=== PATIENT | female | born 1960 | race African-American/Black ===

== ENCOUNTER 2016-08-10 19:09 | Observation (INO) | payer OTHER ==
[~2016-08-10] VITALS: Ht 160 cm; Wt 115.0 kg
[~2016-08-10 19:09] MED LIST: CYCL1TAB29 PO; DIAZ10 PO; GLIP10TA6 PO; LANTUS2P SQ; LEVO25TA4 PO
[2016-08-10 19:10] VITALS: BP 203/88; PULSE 87; RESP 18; TEMP 98.5; O2SAT 98
[2016-08-10 19:27] VITALS: BP 185/87; PULSE 84; RESP 18; TEMP 98.2; O2SAT 100
[2016-08-10] MEDS ORDERED: ASPIRIN 325 MG TAB PO ONE (19:45)
[2016-08-10] MEDS ORDERED: MORPHINE SULFATE 4 MG/ML INJ IV PUSH ONE (19:45)
[2016-08-10] MEDS ORDERED: SODIUM CHLORIDE 0.9% FLUSH 5 ML FLUSH IVF PRN (19:45)
--- NOTE | 2016-08-10 19:49 | PD ---
HPI Chief Complaint: Chest Pain Time Seen by Provider: 19:32 Travel History International Travel<30 days: No Contact w/Intl Traveler<30days: No Traveled to known affect area: No History of Present Illness HPI The patient is a 56-year-old female. 2 months ago she moved here from [place]. She arrives tonight complaining of chest pain which started while she was shopping. It's retrosternal and has a sharp quality. She states it was severe however has improved. She also felt lightheaded at the time without LOC. She states thereafter she started to drop objects from her hands. Hand weakness has since resolved. The patient suffers chronic back pain. At one point she was opiate-dependent for the pain. She denies any history of coronary artery disease/cardiac catheterization. She is diabetic and hypertensive. For the past couple days she has been feeling somewhat lousy laying in bed generally and suffering with total body pain specifically in her cervical thoracic and lumbar spine and knees. She denies any recent injuries. She's had no fever or cough. There was no diaphoresis palpitation or shortness of breath accompanying her symptoms earlier this evening. In the ER her pain is mild to moderate. Currently she has no primary provider secondary to insurance problems. She has no headache and had no headache earlier. PFSH Past Medical History Diabetes: Yes Patient Takes Glucophage: No (unknown) Hepatitis: Yes (HEP C) Musculoskeletal: Yes (BULDGING DISC) Immunizations Current: Yes Tetanus Vaccination: Unknown Influenza Vaccination: No Past Surgical History Cardiac Surgery: Yes Social History Alcohol Use: No Tobacco Use: No Substance Use: No Allergies-Medications (Allergen,Severity, Reaction): Coded Allergies: Latex (Verified Allergy, Severe, rash and swelling, 08/10/16) Metformin (Verified Allergy, Severe, 08/10/16) Motrin (Verified Allergy, Severe, 08/10/16) Reported Meds & Prescriptions Reported Meds & Active Scripts Active Review of Systems Except as stated in HPI: all other systems reviewed are Neg General / Constitutional: No: Fever, Chills Neurologic: Positive: Weakness, No: Dizziness, Syncope, Headache Physical Exam Narrative GENERAL: Pleasant 56-year-old female BMI 45, mildly anxious SKIN: Warm and dry. HEAD: Atraumatic. Normocephalic. EYES: Pupils equal and round. No scleral icterus. No injection or drainage. ENT: No nasal bleeding or discharge. Mucous membranes pink and moist. NECK: Trachea midline. No JVD. No focal spinal tenderness. Range of motion normal. CARDIOVASCULAR: Regular rate and rhythm. No murmur appreciated. RESPIRATORY: No accessory muscle use. Clear to auscultation. Breath sounds equal bilaterally. GASTROINTESTINAL: Abdomen soft, non-tender, nondistended. Hepatic and splenic margins not palpable. MUSCULOSKELETAL: No obvious deformities. No clubbing. No cyanosis. No edema. NEUROLOGICAL: Awake and alert. No obvious cranial nerve deficits. Motor grossly within normal limits. Normal speech. 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 Full range of motion at the shoulders elbows and wrists is noted and appears normal and symmetric. PSYCHIATRIC: Appropriate mood and affect; insight and judgment normal. Data Data Last Documented VS Vital Signs Date Time Temp Pulse Resp B/P Pulse Ox O2 Delivery O2 Flow Rate FiO2 08/11/16 00:30 79 16 152/78 98 Room Air 08/10/16 19:27 98.2 Orders Electrocardiogram (08/10/16 19:40) Complete Blood Count With Diff (08/10/16 19:40) Magnesium (Mg) (08/10/16 19:40) Prothrombin Time / Inr (Pt) (08/10/16 19:40) Act Partial Throm Time (Ptt) (08/10/16 19:40) Troponin I (08/10/16 19:40) Lipase (08/10/16 19:40) Chest, Single Ap (08/10/16 19:40) Ecg Monitoring (08/10/16 19:40) Iv Access Insert/Monitor (08/10/16 19:40) Oximetry (08/10/16 19:40) Oxygen Administration (08/10/16 19:40) Aspirin (Aspirin) (08/10/16 19:45) Morphine Inj (Morphine Inj) (08/10/16 19:45) Nitroglycerin Sl (Nitrostat Sl) (08/10/16 19:45) Ct Brain W/O Iv Contrast(Rout) (08/10/16 19:40) Ct Cerv Spine W/O Contrast (08/10/16 19:40) Comprehensive Metabolic Panel (08/10/16 20:14) Us Abdomen Gallbladder (08/10/16 ) Piperacil-Tazo 4.5 Gm Premix (Zosyn 4.5 (08/11/16 00:30) Morphine Inj (Morphine Inj) (08/11/16 00:30) Admit Order (Ed Use Only) (08/11/16 00:41) Bedside Glucose KALEB.AC&HS (08/11/16 00:29) ^ Blood Glucose Goal (Criteria (08/11/16 00:29) ^ Hypoglycemia 51 - 69 Mg/Dl (08/11/16 00:29) ^ Hypoglycemia 50 Mg/Dl Or < (08/11/16 00:29) ^ Notify Dr: Other (08/11/16 00:29) Dextrose 50% In Katarina (Vial) Inj (D50w (Vi (08/11/16 00:30) Glucagon Inj (Glucagon Inj) (08/11/16 00:30) Insulin Aspart Supplemtl Scale (Novolog (08/11/16 07:00) Place In Observation (08/11/16 ) Vital Signs (Adult) Q4H (08/11/16 00:29) Activity Oob Ad Roxanne (08/11/16 00:29) ^ Manager Retail / Telemetry .CONTINUOUS (08/11/16 00:29) Diet 1800 Ada Cons Carb (08/11/16 Breakfast) Sodium Chloride 0.9% Flush (Ns Flush) (08/11/16 00:30) Sodium Chloride 0.9% Flush (Ns Flush) (08/11/16 09:00) Ondansetron Inj (Zofran Inj) (08/11/16 00:30) Bisacodyl Supp (Dulcolax Supp) (08/11/16 00:30) Comprehensive Metabolic Panel (08/11/16 06:00) Complete Blood Count With Diff (08/11/16 06:00) Troponin I (08/11/16 06:00) Troponin I (08/11/16 12:00) Scd Bilateral/Knee High KALEB.BID (08/11/16 00:29) Juan Bilateral/Knee High KALEB.QSHIFT (08/11/16 00:29) Acetaminophen (Tylenol) (08/11/16 00:30) Acetamin-Hydrocod 325-5 Mg ([place] 5-325 (08/11/16 00:30) Morphine Inj (Morphine Inj) (08/11/16 00:30) Thyroid Stimulating Hormone (08/11/16 06:00) Lipid Profile (08/11/16 06:00) Hemoglobin (Hgb) A1c (08/11/16 06:00) Labs Laboratory Tests Test 08/10/16 19:55 White Blood Count 5.4 TH/MM3 Red Blood Count 4.41 MIL/MM3 Hemoglobin 13.2 GM/DL Hematocrit 39.1 % Mean Corpuscular Volume 88.6 FL Mean Corpuscular Hemoglobin 30.0 PG Mean Corpuscular Hemoglobin 33.8 % Concent Red Cell Distribution Width 15.5 % Platelet Count 120 TH/MM3 Mean Platelet Volume 10.5 FL Neutrophils (%) (Auto) 46.8 % Lymphocytes (%) (Auto) 38.8 % Monocytes (%) (Auto) 11.0 % Eosinophils (%) (Auto) 2.8 % Basophils (%) (Auto) 0.6 % Neutrophils # (Auto) 2.5 TH/MM3 Lymphocytes # (Auto) 2.1 TH/MM3 Monocytes # (Auto) 0.6 TH/MM3 Eosinophils # (Auto) 0.2 TH/MM3 Basophils # (Auto) 0.0 TH/MM3 CBC Comment DIFF FINAL Differential Comment Prothrombin Time 13.0 SEC Prothromb Time International 1.2 RATIO Ratio Activated Partial 28.1 SEC Thromboplast Time Sodium Level 138 MEQ/L Potassium Level 4.0 MEQ/L Chloride Level 104 MEQ/L Carbon Dioxide Level 26.9 MEQ/L Anion Gap 7 MEQ/L Blood Urea Nitrogen 9 MG/DL Creatinine 0.65 MG/DL Estimat Glomerular Filtration 113 ML/MIN Rate Random Glucose 119 MG/DL Calcium Level 8.4 MG/DL Magnesium Level 1.9 MG/DL Total Bilirubin 2.6 MG/DL Aspartate Amino Transf 104 U/L (AST/SGOT) Alanine Aminotransferase 78 U/L (ALT/SGPT) Alkaline Phosphatase 271 U/L Troponin I LESS THAN 0.02 NG/ML Total Protein 8.8 GM/DL Albumin 2.8 GM/DL Lipase 253 U/L MDM Medical Decision Making Medical Screen Exam Complete: Yes Emergency Medical Condition: Yes Medical Record Reviewed: Yes Differential Diagnosis NSTEMI, unstable angina, coronary vasospasm, PE, PTX, aortic dissection, pericarditis, myocarditis, endocarditis, PNA, esophageal disease, aneurysm, musculoskeletal etiologies, anxiety, cocaine/sympathomimetic abuse Narrative Course The EKG reveals a sinus rhythm with a rate of 87; no ST segment elevation is observed; no acute ischemic injury pattern is observed. CBC & BMP Diagram 08/10/16 19:55 T bili 2.6 AST 104 ALT 78 Alk phos 271 Lipase 253 Tn < 0.02 Mg 1.9 Last [address] 08/10/161939 Signed Impressions: Service Date/Time: Wednesday, August 10, 2016 19:59 - CONCLUSION: Negative noncontrast head CT. Gil You MD Chest X-Ray 08/10/161939 Signed Impressions: Service Date/Time: Wednesday, August 10, 2016 20:10 - CONCLUSION: Trace pulmonary edema. Gil You MD Cervical Spine CT 08/10/161939 Signed Impressions: Service Date/Time: Wednesday, August 10, 2016 19:59 - CONCLUSION: 1. Multilevel degenerative changes as above. Mild bilateral foraminal stenosis at C4/C5 and C5/C6. There is mild right and moderate left foraminal stenosis at C6/C7. No significant spinal stenosis demonstrated. 2. No fracture or subluxation. Gil You MD Gall Bladder Ultrasound 08/10/16 0000 Signed Impressions: Service Date/Time: Wednesday, August 10, 2016 22:08 - CONCLUSION: Cirrhotic appearing liver with flow in the portal vein away from the liver. There is significant fluid in or around the gallbladder with gallbladder wall thickening. There some debris possibly within the common bile duct. Vinh Bray MD Zosyn started. Admission for IVF, pain control, antiemetics, serial enzymes and surgical evaluation considered reasonable d/w Dr Maravilla. Diagnosis Primary Impression: Cholecystitis Additional Impressions: Chest pain Qualified Code: R07.9 - Chest pain, unspecified type Chronic back pain Qualified Code: M54.9 - Chronic back pain, unspecified back location, unspecified back pain laterality Chronic leg pain Qualified Code: M79.606 - Chronic pain of lower extremity, unspecified laterality Admitting Information Admitting Physician Requests: Admit Marshall López MD Aug 10, 2016 19:49
[2016-08-10] MEDS: NITROGLYCERIN 0.4 MG SL 25 TABS/BTL SL SCH ×3 (19:50→20:20)
[2016-08-10 19:54] VITALS: RESP 18
[2016-08-10 20:10] LABS: AUTOMATED NEUTROPHIL # 2.5 TH/MM3 (1.8-7.7); BASOPHIL % 0.6 % (0.0-2.0); EOSINOPHIL # 0.2 TH/MM3 (0-0.4); EOSINOPHIL % 2.8 % (0.0-4.0); HEMATOCRIT 39.1 % (35.0-46.0); HEMO FLAGS DIFF FINAL; LYMPH % 38.8 % (9.0-44.0); LYMPHOCYTE # 2.1 TH/MM3 (1.0-4.8); MEAN CELL VOLUME 88.6 FL (80.0-100.0); MEAN CORPUSCULAR HGB CONC 33.8 % (32.0-36.0); NEUT % 46.8 % (16.0-70.0); PLATELET COUNT 120 TH/MM3 (150-450); RED BLOOD COUNT 4.41 MIL/MM3 (4.00-5.30); RED CELL DISTRIBUTION WIDTH 15.5 % (11.6-17.2); WHITE BLOOD COUNT 5.4 TH/MM3 (4.0-11.0)
[2016-08-10 20:20] VITALS: BP 171/82; PULSE 95; RESP 18; O2SAT 99
[2016-08-10 20:24] LABS: APTT (PATIENT) 28.1 SEC (24.3-30.1); INTERNATIONAL NORMALIZED RATIO 1.2 RATIO
--- NOTE | 2016-08-10 20:26 | RADRPT ---
EXAM DATE/TIME: 08/10/2016 19:59 [facility] COMPARISON: No previous studies available for comparison. INDICATIONS : General weakness. Numbness down both arms. No known trauma. RADIATION DOSE: 30.02 CTDIvol (mGy) MEDICAL HISTORY : Hepatitis C. Diabetes mellitus type 2. SURGICAL HISTORY : None. ENCOUNTER: Initial ACUITY: 1 day PAIN SCALE: 1/10 LOCATION: Bilateral neck TECHNIQUE: Volumetric scanning of the cervical spine was performed. Multiplanar reconstructions in the sagittal, coronal and oblique axial planes were performed. Using automated exposure control and adjustment o f the mA and/or kV according to patient size, radiation dose was kept as low as reasonably achievable to obtain optimal diagnostic quality images. FINDINGS: Mild cervical kyphosis noted. No subluxations. Bones appear osteopenic without perceptible fracture. Vertebral bodies have normal height. C1/C2 appears normal. C2-C3: The bony spinal canal is normal in size. No evidence of disc bulge or herniation. The neural forami na are bilaterally patent. C3-C4: Mild disc space narrowing and a small amount broad posterior protrusion. No foraminal or spinal steno sis demonstrated. C4-C5: The disc has moderate loss of height with anterior osseous ridging, chronic endplate sclerosis and a small, broad posterior disc osteophyte complex with mild uncovertebral and facet osteoarthritis. Ther e is mild bilateral foraminal stenosis. No significant spinal stenosis. C5-C6: The disc has moderate loss of height with anterior osseous ridging, chronic endplate sclerosis and a small, broad posterior disc osteophyte complex with mild uncovertebral and facet osteoarthritis. Ther e is mild bilateral foraminal stenosis. No significant spinal stenosis. C6-C7: The disc has moderate loss of height. There is a small to moderate, broad disc osteophyte complex and mild bilateral uncovertebral and facet osteoarthritis. There is mild right and moderate left foramin al stenosis. No significant spinal stenosis seen. C7-T1: The bony spinal canal is normal in size. No evidence of disc bulge or herniation. The neural forami na are bilaterally patent. CONCLUSION: 1. Multilevel degenerative changes as above. Mild bilateral foraminal stenosis at C4/C5 and C5/C6. Th ere is mild right and moderate left foraminal stenosis at C6/C7. No significant spinal stenosis demon strated. 2. No fracture or subluxation. Gil You MD on August 10, 2016 at 20:17 Board Certified Radiologist. This report was verified electronically.
--- NOTE | 2016-08-10 20:26 | RADRPT ---
EXAM DATE/TIME: 08/10/2016 19:59 [facility] COMPARISON: No previous studies available for comparison. INDICATIONS : General weakness and numbness in arms. No known trauma. RADIATION DOSE: 32.14 CTDIvol (mGy) MEDICAL HISTORY : Hepatitis C. Diabets. SURGICAL HISTORY : None. ENCOUNTER: Initial ACUITY: 1 day PAIN SCALE: 0/10 LOCATION: cranial TECHNIQUE: Multiple contiguous axial images were obtained of the head. Using automated exposure control and adj ustment of the mA and/or kV according to patient size, radiation dose was kept as low as reasonably a chievable to obtain optimal diagnostic quality images. FINDINGS: CEREBRUM: The ventricles are normal for age. No evidence of midline shift, mass lesion, hemorrhage or acute in farction. No extra-axial fluid collections are seen. POSTERIOR FOSSA: The cerebellum and brainstem are intact. The 4th ventricle is midline. The cerebellopontine angle i s unremarkable. EXTRACRANIAL: The visualized portion of the orbits is intact. SKULL: The calvaria is intact. No evidence of skull fracture. CONCLUSION: Negative noncontrast head CT. Gil You MD on August 10, 2016 at 20:25 Board Certified Radiologist. This report was verified electronically.
[2016-08-10 20:37] VITALS: BP 152/71; PULSE 88; RESP 16; O2SAT 100
[2016-08-10 20:56] LABS: MAGNESIUM 1.9 MG/DL (1.5-2.5)
[2016-08-10 21:14] LABS: ANION GAP 7 MEQ/L (5-15); AST (GOT) 104 U/L (15-37); BICARBONATE 26.9 MEQ/L (21.0-32.0); BLOOD UREA NITROGEN 9 MG/DL (7-18); CHLORIDE 104 MEQ/L (98-107); GLOMERULAR FILTRATION RATE 113 ML/MIN (>89); SODIUM (NA) 138 MEQ/L (136-145)
--- NOTE | 2016-08-10 21:15 | RADRPT ---
EXAM DATE/TIME: 08/10/2016 20:10 [facility] COMPARISON: No previous studies available for comparison. INDICATIONS : Weakness, numbness in arms, chest pain starting today MEDICAL HISTORY : Diabetes mellitus type II. SURGICAL HISTORY : None. ENCOUNTER: Initial ACUITY: 1 day PAIN SCORE: 10/10 LOCATION: Bilateral chest FINDINGS: Slightly prominent pulmonary interstitium seen suggesting very mild pulmonary edema. Heart size withi n normal limits. No large effusion demonstrated. No pneumothorax. CONCLUSION: Trace pulmonary edema. Gil oYu MD on August 10, 2016 at 21:13 Board Certified Radiologist. This report was verified electronically.
[2016-08-10 21:17] LABS: ALKALINE PHOSPHATASE 271 U/L (45-117); ALT (GPT) 78 U/L (10-53); TOTAL BILIRUBIN ADULT 2.6 MG/DL (0.2-1.0)
--- NOTE | 2016-08-10 23:22 | RADRPT ---
EXAM DATE/TIME: 08/10/2016 22:08 [facility] COMPARISON: No previous studies available for comparison. INDICATIONS : Right upper quadrant pain. MEDICAL HISTORY : Hepatitis C. Buldging disc. Diabetes. SURGICAL HISTORY : Colonoscopy. ENCOUNTER: Initial ACUITY: 1 day PAIN SCORE: 6/10 LOCATION: Right upper quadrant MEASUREMENTS: LIVER: 17.2 cm length COMMON DUCT: 6 mm RIGHT KIDNEY: 10.2 x 5.0 x 4.5 cm FINDINGS: LIVER: Heterogeneous nodular echotexture without focal lesion or ductal dilatation. The flow the portal vein is away from the liver. COMMON DUCT: No intraluminal mass or stone visualized. GALLBLADDER: The gallbladder wall is thickened. There some pericholecystic fluid and some debris in the gallbladde r fossa. PANCREAS: The visualized portions are within normal limits. RIGHT KIDNEY: No evidence of hydronephrosis, stone, or mass. CONCLUSION: Cirrhotic appearing liver with flow in the portal vein away from the liver. There is significant flui d in or around the gallbladder with gallbladder wall thickening. There some debris possibly within th e common bile duct. Vinh Bray MD on August 10, 2016 at 23:18 Board Certified Radiologist. This report was verified electronically.
[2016-08-11] VITALS (10 sets, daily range): BP systolic 132–163; BP diastolic 62–80; PULSE 69–99; RESP 16–24; TEMP 96.5–98.5; O2SAT 93–100
[2016-08-11] MEDS ORDERED: ACETAMINOPHEN 325 MG TAB PO PRN (00:30)
[2016-08-11] MEDS ORDERED: ONDANSETRON HCL 4 MG/2 ML VIAL IVP PRN (00:30)
[2016-08-11] MEDS ORDERED: MORPHINE SULFATE 8 MG/ML INJ IV PUSH ONE (00:30)
[2016-08-11] MEDS ORDERED: SODIUM CHLORIDE 0.9% FLUSH 5 ML FLUSH FLUSH PRN (00:30)
[2016-08-11] MEDS ORDERED: BISACODYL 10 MG SUPP PR PRN (00:30)
[2016-08-11] MEDS ORDERED: ACETAMINOPHEN/HYDROcodone 325 MG/5 MG TAB PO PRN (00:30)
[2016-08-11] MEDS ORDERED: GLUCAGON 1 MG/ML VIAL OTHER PRN (00:30)
[2016-08-11] MEDS ORDERED: PIPERACIL-TAZO 4.5 GM PREMIX 100 ML IV ONE (00:30)
[2016-08-11] MEDS ORDERED: DEXTROSE 50% IN WATER 50 ML VIAL(D50) IV PUSH PRN (00:30)
[2016-08-11] MEDS ORDERED: NITROGLYCERIN 2% OINT 1 GM PACKET TOPICAL PRN (00:45)
--- NOTE | 2016-08-11 01:04 | HHI.HP ---
[facility] Primary Care Physician No Primary Care Physician Admission Diagnosis Chest Pain, Poss Cholecystitis Diagnoses: (1) Chest pain Diagnosis: Principal (2) Cholecystitis Diagnosis: Principal (3) Hepatitis C (4) DM (diabetes mellitus) Diagnosis: Principal (5) Chronic back pain Diagnosis: Principal Travel History International Travel<30 Days: No Contact w/Intl Traveler <30 Da: No Traveled to Known Affected Are: No History of Present Illness This is a 56-year-old female with a PMH of HTN, DM, Hepatitis C, H/o GI Bleed w / Esophageal Varices s/p Banding and Chronic Back Pain who came to the ER w/ complaints of chest pain starting earlier today. Reports associated lightheadedness but no SOB. No h/o CAD. Denies fever, chills or sick contacts. No nausea, vomiting or abdominal pain. On arrival, BP 185/87, HR 84 , O2 sat 100% on RA, Afebrile. LFTs elevated, AST 104, ALT 78, ALP 271, Total Bili 2.6. No previous labs for comparison. Troponin negative. EKG with no acute changes. CBC unremarkable except for thrombocytopenia with platelets of 120. INR 1.2. Also reported transient episode of bilateral upper extremity weakness, now resolved. CT Head negative. CT C-Spine w/ multilevel degenerative disease and mild to moderate foraminal stenosis, no acute findings. CXR w/ mild pulmonary edema. Gallbladder US w/ cirrhosis and significant fluid around the gallbladder w/ gallbladder wall thickening and some debris in the CBD. Review of Systems Other ROS: 14 point review of systems otherwise negative. Past Family Social History Past Medical History PMH: HTN, DM, Hepatitis C, H/o GI Bleed w/ Esophageal Varices s/p Banding and Chronic Back Pain Past Surgical History PAST SURGICAL HISTORY: None Allergies: Coded Allergies: Latex (Verified Allergy, Severe, rash and swelling, 08/10/16) Metformin (Verified Allergy, Severe, 08/10/16) Motrin (Verified Allergy, Severe, 08/10/16) Family History PAST FAMILY HISTORY: Reviewed. No h/o DM or CAD Social History PAST SOCIAL HISTORY: Negative for alcohol, tobacco or drugs. Physical Exam Vital Signs Vital Signs Date Time Temp Pulse Resp B/P Pulse Ox O2 Delivery O2 Flow Rate FiO2 08/10/16 20:37 88 16 152/71 100 Room Air 08/10/16 20:28 18 08/10/16 20:28 18 08/10/16 20:20 95 18 171/82 99 Room Air 08/10/16 19:54 18 08/10/16 19:54 98 Room Air 08/10/16 19:29 84 18 100 Room Air 08/10/16 19:27 98.2 84 18 185/87 100 08/10/16 19:10 98.5 87 18 203/88 98 Room Air Physical Exam PE: GENERAL: Pleasant middle-aged black female in no acute distress. HEENT: PERRLA, EOMI. No scleral icterus or conjunctival pallor. No lid lag or facial droop. CARDIOVASCULAR: Regular rate and rhythm. No obvious murmurs to auscultation. No chest tenderness to palpation. RESPIRATORY: No obvious rhonchi or wheezing. Clear to auscultation. Breath sounds equal bilaterally. GASTROINTESTINAL: Abdomen soft, mild epigastric tenderness to palpation, nondistended. BS normal. MUSCULOSKELETAL: Extremities without clubbing, cyanosis, or edema. No obvious deformities. NEUROLOGICAL: Awake, alert and oriented x4. No focal neurologic deficits. Moving both upper and lower extremities spontaneously. Laboratory Laboratory Tests Test 08/10/16 19:55 White Blood Count 5.4 Red Blood Count 4.41 Hemoglobin 13.2 Hematocrit 39.1 Mean Corpuscular Volume 88.6 Mean Corpuscular Hemoglobin 30.0 Mean Corpuscular Hemoglobin 33.8 Concent Red Cell Distribution Width 15.5 Platelet Count 120 Mean Platelet Volume 10.5 Neutrophils (%) (Auto) 46.8 Lymphocytes (%) (Auto) 38.8 Monocytes (%) (Auto) 11.0 Eosinophils (%) (Auto) 2.8 Basophils (%) (Auto) 0.6 Neutrophils # (Auto) 2.5 Lymphocytes # (Auto) 2.1 Monocytes # (Auto) 0.6 Eosinophils # (Auto) 0.2 Basophils # (Auto) 0.0 CBC Comment DIFF FINAL Differential Comment Prothrombin Time 13.0 Prothromb Time International 1.2 Ratio Activated Partial 28.1 Thromboplast Time Sodium Level 138 Potassium Level 4.0 Chloride Level 104 Carbon Dioxide Level 26.9 Anion Gap 7 Blood Urea Nitrogen 9 Creatinine 0.65 Estimat Glomerular Filtration 113 Rate Random Glucose 119 Calcium Level 8.4 Magnesium Level 1.9 Total Bilirubin 2.6 Aspartate Amino Transf 104 (AST/SGOT) Alanine Aminotransferase 78 (ALT/SGPT) Alkaline Phosphatase 271 Troponin I LESS THAN 0.02 Total Protein 8.8 Albumin 2.8 Lipase 253 Result Diagram: 08/10/16195408/10/161954 Assessment and Plan Problem List: (1) Chest pain ICD Code: R07.9 Status: Acute (2) Cholecystitis ICD Code: K81.9 Status: Acute (3) Hepatitis C ICD Code: B19.20 Status: Acute (4) DM (diabetes mellitus) ICD Code: E11.9 Status: Acute (5) Chronic back pain ICD Code: M54.9 Status: Acute Assessment and Plan A/P: 1. Chest Pain: r/o ACS. Initial trop negative, EKG w/ no acute findings. Check serial cardiac enzymes, lipid profile, Hgb A1c. Hold ASA in light of h/o GI Bleed/Esophageal Varices and Thrombocytopenia. Hold Statin in light of acute cholecystitis. Start Metoprolol. NTG/Morphine prn as needed. CXR w/ mild pulmonary edema, images reviewed by me. 2. Cholecystitis: Gallbladder US w/ cirrhosis, significant fluid around the gallbladder and gallbladder wall thickening. LFTs elevated, h/o Hep C, no previous labs for comparison. Afebrile, no leukocytosis. Consult Gen Sx in am for non-emergent eval. 3. Hep C: h/o Hepatitis C, diagnosed 2006 w/ subsequent Cirrhosis, h/o GI Bleed due to Esophageal Varices s/p banding. No active bleeding at this time. Hold ASA. Recently moved from [place], making arrangements for GI follow up as outpatient pending insurance. 4. DM: Sliding scale w/ Accu-Cheks. Check Hgb A1c. 5. HTN: Uncontrolled. Start Metoprolol. Monitor BP. 6. DVT Prophylaxis: SCD/Teds. 7. Social work for d/c planning as needed. 8. Case discussed w/ ER physician at length. Elida Maravilla MD Aug 11, 2016 01:04
[2016-08-11] MEDS ORDERED: PILL SPLITTER OTHER PRN (01:15)
[2016-08-11 05:39] LABS: AUTOMATED NEUTROPHIL # 1.9 TH/MM3 (1.8-7.7); BASOPHIL % 0.3 % (0.0-2.0); EOSINOPHIL # 0.2 TH/MM3 (0-0.4); EOSINOPHIL % 4.5 % (0.0-4.0); HEMATOCRIT 35.1 % (35.0-46.0); LYMPH % 40.1 % (9.0-44.0); LYMPHOCYTE # 1.7 TH/MM3 (1.0-4.8); MEAN CELL VOLUME 89.8 FL (80.0-100.0); MEAN CORPUSCULAR HEMOGLOBIN 29.8 PG (27.0-34.0); MEAN CORPUSCULAR HGB CONC 33.2 % (32.0-36.0); MONO % 10.5 % (0.0-8.0); NEUT % 44.6 % (16.0-70.0); PLATELET COUNT 89 TH/MM3 (150-450); RED BLOOD COUNT 3.91 MIL/MM3 (4.00-5.30); RED CELL DISTRIBUTION WIDTH 15.5 % (11.6-17.2); WHITE BLOOD COUNT 4.3 TH/MM3 (4.0-11.0)
[2016-08-11 05:40] LABS: HEMO FLAGS AUTO DIFF
[2016-08-11 05:48] LABS: ANION GAP 8 MEQ/L (5-15); AST (GOT) 87 U/L (15-37); BLOOD UREA NITROGEN 8 MG/DL (7-18); CHLORIDE 107 MEQ/L (98-107); POTASSIUM 3.5 MEQ/L (3.5-5.1); SODIUM (NA) 140 MEQ/L (136-145)
[2016-08-11 05:59] LABS: ALKALINE PHOSPHATASE 211 U/L (45-117); ALT (GPT) 66 U/L (10-53); GLOMERULAR FILTRATION RATE 120 ML/MIN (>89); HDL CHOLESTEROL 37.9 MG/DL (40.0-60.0); LDL CHOLESTEROL 74 MG/DL (0-99); TOTAL BILIRUBIN ADULT 2.2 MG/DL (0.2-1.0)
[2016-08-11 06:33] LABS: PLATELET ESTIMATE SMEAR LOW (NORMAL); SCAN/DIFF AUTO DIFF CONFIRMED
[2016-08-11] MEDS: INSULIN ASPART SUPPLEMENTAL SCALE SQ SCH ×4 (07:00→20:08)
[2016-08-11] MEDS: METOPROLOL TARTRATE 25 MG TAB PO SCH ×2 (08:28→20:07)
[2016-08-11] MEDS: SODIUM CHLORIDE 0.9% FLUSH 5 ML FLUSH FLUSH SCH ×2 (08:28→20:26)
[2016-08-11] MEDS: MORPHINE SULFATE 4 MG/ML INJ IV PRN ×3 (08:28→20:07)
[2016-08-11] MEDS ORDERED: MORPHINE SULFATE 4 MG/ML INJ IV PUSH ONE (08:30)
--- NOTE | 2016-08-11 08:36 | HHI.PR ---
Subjective Remarks Follow up for atypical chest pain, epigastric/RUQ pains, possible cholecystitis. The patient reports continued pains throughout the night however she was able to get some sleep after receiving pain medications. She locates her pain to under her left breast, epigastric area, and RUQ, described as constant pressure. Denies any nausea/vomiting. Last BM was last night, reportedly normal stools. Denies any shortness of breath or diaphoresis. Denies fevers but did have chills over the past few days. She denies any other medical complaints at this time. Objective Vitals Vital Signs Date Time Temp Pulse Resp B/P Pulse Ox O2 Delivery O2 Flow Rate FiO2 08/11/16 07:46 97.7 83 22 132/71 99 08/11/16 04:41 96.5 99 18 143/80 95 08/11/16 02:14 78 08/11/16 01:09 16 08/11/16 00:30 79 16 152/78 98 Room Air 08/10/16 20:37 88 16 152/71 100 Room Air 08/10/16 20:28 18 08/10/16 20:28 18 08/10/16 20:20 95 18 171/82 99 Room Air 08/10/16 19:54 18 08/10/16 19:54 98 Room Air 08/10/16 19:29 84 18 100 Room Air 08/10/16 19:27 98.2 84 18 185/87 100 08/10/16 19:10 98.5 87 18 203/88 98 Room Air Result Diagram: 08/11/16 0445 08/11/16 0445 Imaging Last Impressions Head CT 08/10/161939 Signed Impressions: Service Date/Time: Wednesday, August 10, 2016 19:59 - CONCLUSION: Negative noncontrast head CT. Gil You MD Chest X-Ray 08/10/161939 Signed Impressions: Service Date/Time: Wednesday, August 10, 2016 20:10 - CONCLUSION: Trace pulmonary edema. Gil You MD Cervical Spine CT 08/10/161939 Signed Impressions: Service Date/Time: Wednesday, August 10, 2016 19:59 - CONCLUSION: 1. Multilevel degenerative changes as above. Mild bilateral foraminal stenosis at C4/C5 and C5/C6. There is mild right and moderate left foraminal stenosis at C6/C7. No significant spinal stenosis demonstrated. 2. No fracture or subluxation. Gil You MD Gall Bladder Ultrasound 08/10/16 0000 Signed Impressions: Service Date/Time: Wednesday, August 10, 2016 22:08 - CONCLUSION: Cirrhotic appearing liver with flow in the portal vein away from the liver. There is significant fluid in or around the gallbladder with gallbladder wall thickening. There some debris possibly within the common bile duct. Vinh Bray MD Objective Remarks GENERAL: Well-nourished, well-developed obese female patient in NAD. SKIN: Warm and dry. No rash. HEAD: Normocephalic. Atraumatic. EYES: Pupils equal and round. No scleral icterus. No injection or drainage. ENT: No nasal bleeding or discharge. Mucous membranes pink and moist. NECK: Supple. Trachea midline. CARDIOVASCULAR: Regular rate and rhythm. S1, S2 noted. No murmur appreciated. RESPIRATORY: No accessory muscle use. Clear to auscultation. Breath sounds equal bilaterally. GASTROINTESTINAL: Abdomen soft, nondistended, moderate TTP throughout RUQ, epigastric area, and LUQ/left lower anterior rib cage under the breast. Normoactive bowel sounds x4. MUSCULOSKELETAL: No obvious deformities. Trace bilateral lower extremity edema. NEUROLOGICAL: Awake and alert. No obvious cranial nerve deficits. Motor grossly within normal limits. Normal speech. PSYCHIATRIC: Appropriate mood and affect; insight and judgment normal. Medications and IVs Current Medications Medications (Trade) Dose Ordered Sig/Laura Route Start Time Stop Time Status Last Admin (D50w (Vial) Inj) 25 ml UNSCH PRN IV PUSH 08/11/16 00:30 (Glucagon Inj) 1 mg UNSCH PRN OTHER 08/11/16 00:30 (NS Flush) 2 ml UNSCH PRN FLUSH 08/11/16 00:30 (NS Flush) 2 ml BID FLUSH 08/11/16 09:00 (Zofran Inj) 4 mg Q6H PRN IVP 08/11/16 00:30 (Dulcolax Supp) 10 mg DAILY PRN DE 08/11/16 00:30 (Tylenol) 650 mg Q6H PRN PO 08/11/16 00:30 ([place] 5-325 Mg) 1 tab Q4H PRN PO 08/11/16 00:30 (Morphine Inj) 2 mg Q3H PRN IV 08/11/16 00:30 (Nitroglycerin 2% Oint) 0.5 inch Q6H PRN TOPICAL 08/11/16 00:45 (Lopressor) 12.5 mg Q12HR PO 08/11/16 09:00 (Pill Splitter) 1 ea UNSCH PRN OTHER 08/11/16 01:15 (Morphine Inj) 4 mg ONCE ONCE IV PUSH 08/11/16 08:30 08/11/16 08:31 UNV Urinary Catheter: No Vascular Central Line Catheter: No A/P Problem List: (1) Chest pain ICD Code: R07.9 Status: Acute (2) Cholecystitis ICD Code: K81.9 Status: Acute (3) Hepatitis C ICD Code: B19.20 Status: Acute (4) DM (diabetes mellitus) ICD Code: E11.9 Status: Acute (5) Chronic back pain ICD Code: M54.9 Status: Acute Assessment and Plan 56-year-old female with a PMH of HTN, DM, Hepatitis C, H/o GI Bleed w/ Esophageal Varices s/p Banding and Chronic Back Pain who came to the ER w/ complaints of chest pain starting earlier today. Chest Pain, atypical: r/o ACS. Initial trops negative x2, EKG w/ no acute findings; checking 3rd set of cardiac enzymes/EKG. Lipid profile wnl. Hgb A1c pending. Hold ASA in light of h/o GI Bleed/Esophageal Varices and Thrombocytopenia. Hold Statin in light of acute cholecystitis. Start Metoprolol. NTG/Morphine prn as needed. CXR w/ mild pulmonary edema, images reviewed by me. Suspect GI related with suspect cholecystitis. Cholecystitis: Gallbladder US w/ cirrhosis, significant fluid around the gallbladder and gallbladder wall thickening. LFTs elevated, h/o Hep C, no previous labs for comparison. Afebrile, no leukocytosis. Consult General Surgery. Hep C: h/o Hepatitis C, diagnosed 2006 w/ subsequent Cirrhosis, h/o GI Bleed due to Esophageal Varices s/p banding. No active bleeding at this time. Hold ASA. Recently moved from [facility], [place], operated by [facility] making arrangements for GI follow up as outpatient pending insurance. DM: Sliding scale w/ Accu-Cheks. Check Hgb A1c. HTN: Uncontrolled. Start Metoprolol. Monitor BP. Improved today. DVT Prophylaxis: SCD/Teds. Problem Qualifiers (1) Chest pain: Qualified Code: R07.9 - Chest pain, unspecified type (2) Chronic back pain: Qualified Code: M54.9 - Chronic back pain, unspecified back location, unspecified back pain laterality Renita Sinclair PA-C Aug 11, 2016 08:36
--- NOTE | 2016-08-11 11:04 | MB ---
cc: BRIANA ENNIS MD, ANDREW DATE OF CONSULTATION: 08/11/2016 REASON FOR CONSULTATION: Possible cholecystitis HISTORY OF PRESENT ILLNESS The patient is a 56-year-old -[place] female who recently moved from [place] with a history of cirrhosis and variceal bleeding. The patient has a history of Hepatitis C and upper GI bleeding with esophageal banding approximately two months ago. The patient relocated to [place] to be near her daughter when she developed epigastric or chest pain, some kind of discomfort. The discomfort is rather nonspecific in relation to shortness of breath as well as more on her chest and belly but also more on the left upper quadrant and the right upper quadrant. The patient denies any fever or chills, nausea, vomiting, hematemesis, hematochezia, diarrhea, constipation, or any sick contacts. The patient denies any other illnesses. The patient did undergo a workup in the emergency department and was found to have an elevated bilirubin of 2.5, elevated transaminases, and thrombocytopenia, elevated INR, and imaging with cirrhotic appearing liver, reversal of portal flow and some nonspecific gallbladder wall thickening and cystic fluid. REVIEW OF SYSTEMS: A 12-point review of systems is conducted with the patient and is negative except for the pertinent positives mentioned above in the history of present illness. MEDICAL HISTORY 1. Cirrhosis 2. Hepatitis C. 3. Diabetes mellitus. 4. Hypertension. 5. Chronic back pain. PAST SURGICAL HISTORY Tubal ligation laparoscopically ALLERGIES LATEX, METFORMIN, MOTRIN. MEDICATIONS: The patient takes a diuretic, metoprolol. [place]. Insulin. FAMILY HISTORY: No upper GI malignancies. SOCIAL HISTORY The patient denies alcohol, tobacco or illicit drug use. PHYSICAL EXAMINATION Vital signs: Blood pressure 132/71, temperature 97.7, heart rate 83, O2 saturation 99% on room air. Patient is an overweight female in no acute distress, does not appear acute or chronically ill. Head: Normocephalic, atraumatic. Pupils round, reactive to light and accommodation. Sclerae is anicteric. Mucous membranes are moist. Neck: Supple. No JVD. Lungs: Clear to auscultation bilaterally. Nonlabored breathing pattern. Heart: Regular rate and rhythm. No murmurs. Abdomen: Distended, positive for ascites. No hernias. No varices. No masses. No organomegaly. Extremities: Chronic trace edema. Back: No CVA tenderness Neurologic: The patient is awake, alert, oriented x4, nonfocal peripheral exam. Cranial nerves II-XII grossly intact. ASSESSMENT/PLAN The patient is a 56-year-old female with history of hepatitis C, severe cirrhosis, radiologically, biochemically with history of variceal bleeding. The patient has acute pain, unclear of the etiology. Based on the imaging and physical exam the patient's cystic fluid and gallbladder wall thickening can relate to cirrhosis and not any form of acute cholecystitis. However, being that the patient had chronic cholecystitis, I would recommend treating this nonoperatively with behavioral modification and course of antibiotics, as the patient is at extremely high-risk for surgery due to her cirrhosis. I did discuss this with her and she is in agreement with this plan. I do recommend gastroenterology consultation as the patient does not have a crossing guard locally and does need follow up as well as significant complex management of her cirrhosis. I do not recommend any acute surgical intervention at this time. Thank you for the consultation. We will sign off and if you need us, please call back if we can be of any further assistance. MD MINH Kuhn/KUSHAL /10:23 AM /10:46 AM
--- NOTE | 2016-08-11 12:32 | PD.CONS ---
HPI History of Present Illness This is a 56 year old female who has a PMH of DM, cirrhosis of liver, Hepatitis C, GI bleed and esophageal varices,S/P banding, who presented to the ED with complaints of chest pain, and lightheadedness, Denied N/V, diarrhea or constipation. she having epigastric pain and tenderness. Gallbladder US showed cirrhosis gallbladder wall thickening, significant fluid around gallbladder and possibly some debris in the common bile duct. She was seen by general surgery today, who felt she did not need surgery at this time and findings are likely secondary to cirrhosis. She was diagnosed with Hepatitis C in 2006 and was treated with Harvoni, finished treatment in January 2016. She states she initially cleared the virus then it came back. She was also diagnosed with cirrhosis in 2006. She has elevated LFT's showing AST 104, ALT 78, ALK phos of 271 and bilirubin 2.6. Today's labs show bilirubin of 2.2, AST of 87, ALT of 66, Alk phos of 211. She did have a Lipase which was 253. She states she is homeless recently moved here from [place] and lives in her car.She has an EGD with banding of varices one year ago and a colonoscopy one year ago, she cannot remember the results of the colonoscopy. She is not having any constipation, no melana or hematemesis. (Verónica Watson) PFSH Past Medical History PMH: HTN, DM, Hepatitis C, H/o GI Bleed w/ Esophageal Varices s/p Banding and Chronic Back Pain Past Surgical History PAST SURGICAL HISTORY: EGD with banding (Verónica Watson) Coded Allergies: Latex (Verified Allergy, Severe, rash and swelling, 08/10/16) Metformin (Verified Allergy, Severe, 08/10/16) Motrin (Verified Allergy, Severe, 08/10/16) Medications Reported Meds & Active Scripts Active Family History PAST FAMILY HISTORY: DM and mental illness Social History PAST SOCIAL HISTORY: Negative for alcohol, tobacco or drugs, she is single and homeless (Verónica Watson) Review of Systems Cardiovascular: COMPLAINS OF: Chest pain Gastrointestinal: COMPLAINS OF: Abdominal pain (epigastric pain and tenderness) , DENIES: Black stools, Bloody stools, Constipation, Diarrhea, Nausea, Vomiting , Difficulty Swallowing, Heartburn (Verónica Watson) GI Exam Vitals I&O Vital Signs Date Time Temp Pulse Resp B/P Pulse Ox O2 Delivery O2 Flow Rate FiO2 08/11/16 11:30 97.4 74 24 132/62 100 08/11/16 08:02 86 08/11/16 07:46 97.7 83 22 132/71 99 08/11/16 04:41 96.5 99 18 143/80 95 08/11/16 02:14 78 08/11/16 01:09 16 08/11/16 00:30 79 16 152/78 98 Room Air 08/10/16 20:37 88 16 152/71 100 Room Air 08/10/16 20:28 18 08/10/16 20:28 18 08/10/16 20:20 95 18 171/82 99 Room Air 08/10/16 19:54 18 08/10/16 19:54 98 Room Air 08/10/16 19:29 84 18 100 Room Air 08/10/16 19:27 98.2 84 18 185/87 100 08/10/16 19:10 98.5 87 18 203/88 98 Room Air Imaging Last [address] 08/10/161939 Signed Impressions: Service Date/Time: Wednesday, August 10, 2016 19:59 - CONCLUSION: Negative noncontrast head CT. Gil You MD Chest X-Ray 08/10/161939 Signed Impressions: Service Date/Time: Wednesday, August 10, 2016 20:10 - CONCLUSION: Trace pulmonary edema. Gil You MD Cervical Spine CT 08/10/161939 Signed Impressions: Service Date/Time: Wednesday, August 10, 2016 19:59 - CONCLUSION: 1. Multilevel degenerative changes as above. Mild bilateral foraminal stenosis at C4/C5 and C5/C6. There is mild right and moderate left foraminal stenosis at C6/C7. No significant spinal stenosis demonstrated. 2. No fracture or subluxation. Gil You MD Gall Bladder Ultrasound 08/10/16 0000 Signed Impressions: Service Date/Time: Wednesday, August 10, 2016 22:08 - CONCLUSION: Cirrhotic appearing liver with flow in the portal vein away from the liver. There is significant fluid in or around the gallbladder with gallbladder wall thickening. There some debris possibly within the common bile duct. Vinh Bray MD Laboratory Test 08/10/16 08/11/16 19:55 04:45 White Blood Count 5.4 TH/MM3 4.3 TH/MM3 Red Blood Count 4.41 MIL/MM3 3.91 MIL/MM3 Hemoglobin 13.2 GM/DL 11.6 GM/DL Hematocrit 39.1 % 35.1 % Mean Corpuscular Volume 88.6 FL 89.8 FL Mean Corpuscular Hemoglobin 30.0 PG 29.8 PG Mean Corpuscular Hemoglobin 33.8 % 33.2 % Concent Red Cell Distribution Width 15.5 % 15.5 % Platelet Count 120 TH/MM3 89 TH/MM3 Mean Platelet Volume 10.5 FL 10.3 FL Neutrophils (%) (Auto) 46.8 % 44.6 % Lymphocytes (%) (Auto) 38.8 % 40.1 % Monocytes (%) (Auto) 11.0 % 10.5 % Eosinophils (%) (Auto) 2.8 % 4.5 % Basophils (%) (Auto) 0.6 % 0.3 % Neutrophils # (Auto) 2.5 TH/MM3 1.9 TH/MM3 Lymphocytes # (Auto) 2.1 TH/MM3 1.7 TH/MM3 Monocytes # (Auto) 0.6 TH/MM3 0.4 TH/MM3 Eosinophils # (Auto) 0.2 TH/MM3 0.2 TH/MM3 Basophils # (Auto) 0.0 TH/MM3 0.0 TH/MM3 CBC Comment DIFF FINAL AUTO DIFF Differential Comment AUTO DIFF CONFIRMED Prothrombin Time 13.0 SEC Prothromb Time International 1.2 RATIO Ratio Activated Partial 28.1 SEC Thromboplast Time Sodium Level 138 MEQ/L 140 MEQ/L Potassium Level 4.0 MEQ/L 3.5 MEQ/L Chloride Level 104 MEQ/L 107 MEQ/L Carbon Dioxide Level 26.9 MEQ/L 25.0 MEQ/L Anion Gap 7 MEQ/L 8 MEQ/L Blood Urea Nitrogen 9 MG/DL 8 MG/DL Creatinine 0.65 MG/DL 0.62 MG/DL Estimat Glomerular Filtration 113 ML/MIN 120 ML/MIN Rate Random Glucose 119 MG/DL 122 MG/DL Calcium Level 8.4 MG/DL 8.1 MG/DL Magnesium Level 1.9 MG/DL Total Bilirubin 2.6 MG/DL 2.2 MG/DL Aspartate Amino Transf 104 U/L 87 U/L (AST/SGOT) Alanine Aminotransferase 78 U/L 66 U/L (ALT/SGPT) Alkaline Phosphatase 271 U/L 211 U/L Troponin I LESS THAN 0.02 LESS THAN 0.02 NG/ML NG/ML Total Protein 8.8 GM/DL 7.1 GM/DL Albumin 2.8 GM/DL 2.2 GM/DL Lipase 253 U/L Platelet Estimate LOW Triglycerides Level 64 MG/DL Cholesterol Level 125 MG/DL LDL Cholesterol 74 MG/DL HDL Cholesterol 37.9 MG/DL Cholesterol/HDL Ratio 3.29 RATIO Thyroid Stimulating Hormone 5.090 uIU/ML 3rd Gen Physical Examination HEENT: Pupils round and reactive to light; normocephalic; atraumatic; no jaundice. Throat is clear. NECK: Neck is supple, no JVD, no lymphadenopathy. CHEST: Chest is clear to auscultation and percussion. CARDIAC: Regular rate and rhythm with no murmur gallop or rubs. ABDOMEN: Soft, nondistended,tender; no hepatosplenomegaly; bowel sounds are present in all four quadrants. EXTREMITIES: No clubbing, cyanosis epigastric area, or edema. SKIN: Normal; no rash; no jaundice. MANAGER OCCUPATIONAL: No focal deficits; alert and oriented times three. (Verónica Watson PAPER REWINDER) Assessment and Plan Assessment: (1) Hepatitis C Plan: S/p treatment with Harvoni completed Tx in January 2016 Reports she cleared virus initially then was found to virus return (2) DM (diabetes mellitus) (3) Cirrhosis of liver (4) Hx of esophageal varices Plan: S/p banding one year ago Plan This is a 56 year old female admitted with chest pain, has know Hx Hepatitis C S /P treatment with Harvoni in completed January 2016, initially cleared virus then it returned. She has liver cirrhosis and an abnormal Gb US seen by surgery with no surgery needed a this time. She is having epigastric pain and has a Hx of Esophageal varices S/P banding about one year ago. Denies any signs of bleeding. She is homeless and has been off all medications for sometime. H&H is 11.6/35.1 Plan -Follow H&H, recheck LFT's in am -Call GI for any bleeding -PPI -Check HCV viral load and genotype -EGD for Epigastric pain with possible banding -DM per PCP Supportive care and Case management for assistance with DC needs -Further recommendations to follow Thank you for the consult Patient was seen and examined by Dr. Echevarria and myself, this note was written on his behalf. (Verónica Watson) Physician Comments Seen and examined, feeling better, decrease in abdominal pain, procedure explained to the patient, will proceed in AM or Friday. (Larry Echevarria MD) Problem Qualifiers (1) Hepatitis C: (2) DM (diabetes mellitus): Qualified Code: E11.8 - Type 2 diabetes mellitus with complication, without long-term current use of insulin (3) Cirrhosis of liver: Verónica Watson Aug 11, 2016 12:32 Larry Echevarria MD Aug 11, 2016 13:28
--- NOTE | 2016-08-11 13:09 | EKG ---
Date Performed: 08/10/2016 Time Performed: 19:27:52 PTAGE: 56 years EKG: Sinus rhythm POSSIBLE LEFT ATRIAL ENLARGEMENT POSSIBLE LEFT VENTRICULAR HYPERTROPHY ABNORMAL ECG NO PREVIOUS TRACING DOCTOR: Kamala Neal Interpretating Date/Time 08/11/2016 13:07:41
[2016-08-12] MEDS: MORPHINE SULFATE 4 MG/ML INJ IV PRN ×3 (01:36→21:30)
[2016-08-12 04:27] VITALS: BP 119/56; PULSE 73; RESP 20; TEMP 98; O2SAT 100
[2016-08-12 05:17] LABS: HEMATOCRIT 34.9 % (35.0-46.0); MEAN CELL VOLUME 89.8 FL (80.0-100.0); MEAN CORPUSCULAR HEMOGLOBIN 29.3 PG (27.0-34.0); MEAN CORPUSCULAR HGB CONC 32.7 % (32.0-36.0); PLATELET COUNT 103 TH/MM3 (150-450); RED BLOOD COUNT 3.89 MIL/MM3 (4.00-5.30); RED CELL DISTRIBUTION WIDTH 15.4 % (11.6-17.2); REVIEW FLAG FINAL
[2016-08-12] MEDS: INSULIN ASPART SUPPLEMENTAL SCALE SQ SCH ×4 (06:26→21:00)
[2016-08-12 08:15] VITALS: PULSE 80
[2016-08-12 08:27] VITALS: BP 123/65; PULSE 76; RESP 18; TEMP 97.1; O2SAT 95
--- NOTE | 2016-08-12 08:57 | HHI.PR ---
Subjective Remarks Follow-up for epigastric pain. The patient continues to complain 10/10 epigastric pain. She states she has a history of esophageal varices with banding, but she doesn't believe she is bleeding right now because she previously had hematemesis. She is concerned because she is nothing by mouth for possible EGD and is diabetic and wants to eat. Discussed with RN, the GI lab today is closed today for the holiday. The patient would like to talk to case picker concerning housing. Objective Vitals Vital Signs Date Time Temp Pulse Resp B/P Pulse Ox O2 Delivery O2 Flow Rate FiO2 08/12/16 08:27 97.1 76 18 123/65 95 08/12/16 04:27 98.0 73 20 119/56 100 08/12/16 01:42 16 08/11/16 23:54 97.8 86 20 144/66 93 08/11/16 20:10 85 08/11/16 19:55 98.5 75 20 163/71 96 08/11/16 15:24 97.8 69 18 135/63 98 08/11/16 11:30 97.4 74 24 132/62 100 Result Diagram: 08/12/16 0444 08/11/16 0445 Imaging Last Impressions Head CT 08/10/161939 Signed Impressions: Service Date/Time: Wednesday, August 10, 2016 19:59 - CONCLUSION: Negative noncontrast head CT. Gil You MD Chest X-Ray 08/10/161939 Signed Impressions: Service Date/Time: Wednesday, August 10, 2016 20:10 - CONCLUSION: Trace pulmonary edema. Gil You MD Cervical Spine CT 08/10/161939 Signed Impressions: Service Date/Time: Wednesday, August 10, 2016 19:59 - CONCLUSION: 1. Multilevel degenerative changes as above. Mild bilateral foraminal stenosis at C4/C5 and C5/C6. There is mild right and moderate left foraminal stenosis at C6/C7. No significant spinal stenosis demonstrated. 2. No fracture or subluxation. Gil You MD Gall Bladder Ultrasound 08/10/16 0000 Signed Impressions: Service Date/Time: Wednesday, August 10, 2016 22:08 - CONCLUSION: Cirrhotic appearing liver with flow in the portal vein away from the liver. There is significant fluid in or around the gallbladder with gallbladder wall thickening. There some debris possibly within the common bile duct. Vinh Bray MD Objective Remarks GENERAL: Well-developed well-nourished morbidly obese. In no acute distress. Appears comfortable. SKIN: Warm and dry. No lesions noted. HEENT: Normocephalic. Pupils equal and round. Mucous membranes pink and moist. CARDIOVASCULAR: Regular rate and rhythm. No murmur appreciated. RESPIRATORY: No accessory muscle use. Clear to auscultation. Breath sounds equal bilaterally. GASTROINTESTINAL: Abdomen soft, non-tender, nondistended. Bowel sounds x4. MUSCULOSKELETAL: No obvious deformities. No clubbing or cyanosis. No edema. NEUROLOGICAL: Awake and alert. No focal neurological deficits. Moves upper and lower extremities spontaneously. Normal speech. PSYCHIATRIC: Appropriate mood and affect; insight and judgment normal. A/P Problem List: (1) Chest pain ICD Code: R07.9 Status: Resolved (2) Cholecystitis ICD Code: K81.9 Status: Chronic (3) Hepatitis C ICD Code: B19.20 Status: Chronic (4) DM (diabetes mellitus) ICD Code: E11.9 Status: Chronic (5) Chronic back pain ICD Code: M54.9 Status: Chronic Assessment and Plan 56-year-old female with a PMH of HTN, DM, Hepatitis C, H/o GI Bleed w/ Esophageal Varices s/p Banding and Chronic Back Pain who came to the ER w/ complaints of chest pain starting earlier today. Chest Pain, atypical: Likely secondary to epigastric pain as below. Ruled out ACS per protocol, troponin negative 3, EKG w/ no acute findings. Lipid profile wnl. Hold ASA in light of h/o GI Bleed/Esophageal Varices and Thrombocytopenia. Hold Statin in light of chronic cholecystitis. Started Metoprolol. NTG/ Morphine prn as needed. CXR w/ mild pulmonary edema. Cholecystitis: Evaluated by general surgery, thought to be chronic. Gallbladder US w/ cirrhosis, significant fluid around the gallbladder and gallbladder wall thickening. LFTs elevated, h/o Hep C, no previous labs for comparison. Afebrile, no leukocytosis. Epigastric pain with history of esophageal varices: Hemoglobin stable. GI consulted, planning on EGD. Clear liquid diet. Start ppi. Hep C: h/o Hepatitis C, diagnosed 2006 w/ subsequent Cirrhosis, h/o GI Bleed due to Esophageal Varices s/p banding. No active bleeding at this time. Recently moved from [place], making arrangements for GI follow up as outpatient pending insurance. DM: Sliding scale w/ Accu-Cheks. Checking Hgb A1c. HTN: Better controlled after starting on metoprolol. DVT Prophylaxis: SCD/Teds. Discharge Planning Follow-up GI recommendations. manager interventional consult for assistance with discharge disposition. Attending Statement The exam, history, and the medical decision-making described in the above note were completed with the assistance of the mid-level provider. I reviewed and agree with the findings presented. I attest that I had a [id number] encounter with the patient on the same day, and personally performed and documented my assessment and findings in the medical record.patient seen and examined on date of service. Appears uncomfortable. workup for abdominal pain. appreciate GI assistance. Problem Qualifiers (1) Chest pain: Qualified Code: R07.9 - Chest pain, unspecified type (2) Hepatitis C: Qualified Code: B18.2 - Chronic hepatitis C without hepatic coma (3) DM (diabetes mellitus): Qualified Code: E11.8 - Type 2 diabetes mellitus with complication, without long-term current use of insulin (4) Chronic back pain: Qualified Code: M54.9 - Chronic back pain, unspecified back location, unspecified back pain laterality Brenton Farrell Aug 12, 2016 08:57 Wilton Barron MD Aug 14, 2016 03:01
[2016-08-12] MEDS: PANTOPRAZOLE SOD 40 MG DELAYED RELEASE TAB PO SCH (09:26)
[2016-08-12] MEDS: METOPROLOL TARTRATE 25 MG TAB PO SCH ×2 (09:26→21:22)
[2016-08-12] MEDS: SODIUM CHLORIDE 0.9% FLUSH 5 ML FLUSH FLUSH SCH ×2 (09:26→21:24)
[2016-08-12] MEDS ORDERED: D5-1/2 NS + KCL 20 MEQ INJ 1,000 ML IV SCH (10:00)
[2016-08-12 11:55] VITALS: BP 148/65; PULSE 68; RESP 20; TEMP 97.9; O2SAT 100
--- NOTE | 2016-08-12 15:52 | HHI.GIFU ---
Subjective Remarks Patient was scheduled for EGD but ate and cannot proceed with procedure today, despite order to be NPO. Objective Vitals I&O Vital Signs Date Time Temp Pulse Resp B/P Pulse Ox O2 Delivery O2 Flow Rate FiO2 08/12/16 11:55 97.9 68 20 148/65 100 08/12/16 09:41 18 08/12/16 08:27 97.1 76 18 123/65 95 08/12/16 08:15 80 08/12/16 04:27 98.0 73 20 119/56 100 08/11/16 23:54 97.8 86 20 144/66 93 08/11/16 20:10 85 08/11/16 19:55 98.5 75 20 163/71 96 Laboratory Laboratory Tests Test 08/12/16 04:44 White Blood Count 5.0 Red Blood Count 3.89 Hemoglobin 11.4 Hematocrit 34.9 Mean Corpuscular Volume 89.8 Mean Corpuscular Hemoglobin 29.3 Mean Corpuscular Hemoglobin 32.7 Concent Red Cell Distribution Width 15.4 Platelet Count 103 Mean Platelet Volume 10.0 Physical Exam HEENT: Pupils round and reactive to light; normocephalic; atraumatic; no jaundice. Throat is clear. NECK: Neck is supple, no JVD, no lymphadenopathy. CHEST: Chest is clear to auscultation and percussion. CARDIAC: Regular rate and rhythm with no murmur gallop or rubs. ABDOMEN: Soft, nondistended, nontender; no hepatosplenomegaly; bowel sounds are present in all four quadrants. EXTREMITIES: No clubbing, cyanosis, or edema. SKIN: Normal; no rash; no jaundice. FILER METAL PATTERNS: No focal deficits; alert and oriented times three. Assessment and Plan Assessment: (1) Hepatitis C Plan: S/p treatment with Harvoni completed Tx in January 2016 Reports she cleared virus initially then was found to virus return (2) DM (diabetes mellitus) (3) Cirrhosis of liver (4) Hx of esophageal varices Plan: S/p banding one year ago Plan This is a 56 year old female admitted with chest pain, has know Hx Hepatitis C S /P treatment with Harvoni in completed January 2016, initially cleared virus then it returned. She has liver cirrhosis and an abnormal Gb US seen by surgery with no surgery needed a this time. She is having epigastric pain and has a Hx of Esophageal varices S/P banding about one year ago. Denies any signs of bleeding. She is homeless and has been off all medications for sometime. H&H is 11.6/35.1 Plan -Follow H&H -Call GI for any bleeding -PPI -Check HCV viral load and genotype -EGD for Epigastric pain with possible banding tomorrow , since patient is not NPO today -DM per PCP Supportive care and Case management for assistance with DC needs -Further recommendations to follow Problem Qualifiers (1) Hepatitis C: Qualified Code: B18.2 - Chronic hepatitis C without hepatic coma (2) DM (diabetes mellitus): Qualified Code: E11.8 - Type 2 diabetes mellitus with complication, without long-term current use of insulin (3) Cirrhosis of liver: Larry Echevarria MD Aug 12, 2016 15:52 long-term current use of insulin (3) Cirrhosis of liver: Larry Echevarria MD Aug 12, 2016 15:52
[2016-08-12 16:27] VITALS: BP 163/74; PULSE 75; RESP 18; TEMP 97.6; O2SAT 100
[2016-08-12 17:48] LABS: HEMOGLOBIN A1b 1.3 %; HEMOGLOBIN LA1C 2.1 %; HEMOGLOBIN P3 2.2 %
[2016-08-12 20:00] VITALS: PULSE 67
[2016-08-13 00:03] VITALS: BP 134/78; PULSE 71; RESP 20; TEMP 98.3; O2SAT 97
[2016-08-13 03:49] VITALS: BP 141/65; PULSE 71; RESP 20; TEMP 97.4; O2SAT 99
[2016-08-13] MEDS: INSULIN ASPART SUPPLEMENTAL SCALE SQ SCH (05:41)
[2016-08-13 08:18] VITALS: BP 143/66; PULSE 74; RESP 20; TEMP 97.9; O2SAT 98
--- NOTE | 2016-08-13 08:39 | HHI.PR ---
Subjective Remarks Follow-up for epigastric pain. Patient continues to complain of epigastric pain overnight. She has been tolerating clear liquids with no nausea or vomiting. She wants to eat full diet. She states she gets occasional shortness of breath, felt like she's been wheezing some. She denies any history of asthma or COPD, but states she does have a breathing machine at home. She states that she has been off of Lantus and glipizide for about 2 months now. Objective Vitals Vital Signs Date Time Temp Pulse Resp B/P Pulse Ox O2 Delivery O2 Flow Rate FiO2 08/13/16 08:18 97.9 74 20 143/66 98 08/13/16 03:49 97.4 71 20 141/65 99 08/13/16 00:03 98.3 71 20 134/78 97 08/12/16 20:00 67 08/12/16 16:27 97.6 75 18 163/74 100 08/12/16 11:55 97.9 68 20 148/65 100 08/12/16 09:41 18 Result Diagram: 08/12/16 0444 08/11/16 0445 Imaging Last Impressions Head CT 08/10/161939 Signed Impressions: Service Date/Time: Wednesday, August 10, 2016 19:59 - CONCLUSION: Negative noncontrast head CT. Gil You MD Chest X-Ray 08/10/161939 Signed Impressions: Service Date/Time: Wednesday, August 10, 2016 20:10 - CONCLUSION: Trace pulmonary edema. Gil You MD Cervical Spine CT 08/10/161939 Signed Impressions: Service Date/Time: Wednesday, August 10, 2016 19:59 - CONCLUSION: 1. Multilevel degenerative changes as above. Mild bilateral foraminal stenosis at C4/C5 and C5/C6. There is mild right and moderate left foraminal stenosis at C6/C7. No significant spinal stenosis demonstrated. 2. No fracture or subluxation. Gil You MD Gall Bladder Ultrasound 08/10/16 0000 Signed Impressions: Service Date/Time: Wednesday, August 10, 2016 22:08 - CONCLUSION: Cirrhotic appearing liver with flow in the portal vein away from the liver. There is significant fluid in or around the gallbladder with gallbladder wall thickening. There some debris possibly within the common bile duct. Vinh Bray MD Objective Remarks GENERAL: Well-developed well-nourished morbidly obese. In no acute distress. SKIN: Warm and dry. No lesions noted. HEENT: Normocephalic. Pupils equal and round. Mucous membranes pink and moist. CARDIOVASCULAR: Regular rate and rhythm. No murmur appreciated. RESPIRATORY: No accessory muscle use. Clear to auscultation. Breath sounds equal bilaterally. Occasional faint end expiratory wheeze. GASTROINTESTINAL: Abdomen soft, non-tender, nondistended. Bowel sounds x4. MUSCULOSKELETAL: No obvious deformities. No clubbing or cyanosis. No edema. NEUROLOGICAL: Awake and alert. No focal neurological deficits. Moves upper and lower extremities spontaneously. Normal speech. PSYCHIATRIC: Appropriate mood and affect; insight and judgment normal. A/P Problem List: (1) Chest pain ICD Code: R07.9 Status: Resolved (2) Cholecystitis ICD Code: K81.9 Status: Chronic (3) Hepatitis C ICD Code: B19.20 Status: Chronic (4) DM (diabetes mellitus) ICD Code: E11.9 Status: Chronic (5) Chronic back pain ICD Code: M54.9 Status: Chronic Assessment and Plan 56-year-old female with a PMH of HTN, DM, Hepatitis C, H/o GI Bleed w/ Esophageal Varices s/p Banding and Chronic Back Pain who came to the ER w/ complaints of chest pain starting earlier today. Chest Pain, atypical: Likely secondary to epigastric pain as below. Ruled out ACS per protocol, troponin negative 3, EKG w/ no acute findings. Lipid profile wnl. Hold ASA in light of h/o GI Bleed/Esophageal Varices and Thrombocytopenia. Hold Statin in light of chronic cholecystitis. Started Metoprolol. NTG/ Morphine prn as needed. CXR w/ trace pulmonary edema. Cholecystitis: Evaluated by general surgery, thought to be chronic. Gallbladder US w/ cirrhosis, significant fluid around the gallbladder and gallbladder wall thickening. LFTs elevated, h/o Hep C, no previous labs for comparison. Afebrile, no leukocytosis. Epigastric pain with history of esophageal varices: Hemoglobin stable. GI consulted, planning on EGD. Diet per GI. Started PPI. Hep C: h/o Hepatitis C, diagnosed 2006 w/ subsequent Cirrhosis, h/o GI Bleed due to Esophageal Varices s/p banding. No active bleeding at this time. Recently moved from [place], making arrangements for GI follow up as outpatient pending insurance. DM: Hemoglobin A1c 5.2 off of home diabetic meds for 2 months. Discontinue Sliding scale w/ Accu-Cheks. Discussed with the patient, recommended diabetic diet and follow up with PCP as outpatient. HTN: Better controlled after starting on metoprolol. Likely COPD: Occasional wheezing and shortness of breath. Patient reports she has a nebulizer machine at home. Give DuoNeb 1. Continue albuterol MDI as needed. DVT Prophylaxis: SCD/Teds. Discharge Planning Follow-up GI recommendations, likely DC today after EGD. jewelry manager consulted for assistance with outpatient resources and follow-up. Will need prescriptions for metoprolol, PPI, albuterol MDI. Attending Statement The exam, history, and the medical decision-making described in the above note were completed with the assistance of the mid-level provider. I reviewed and agree with the findings presented. I attest that I had a [id number] encounter with the patient on the same day, and personally performed and documented my assessment and findings in the medical record.patient seen and examined the afternoon of 08/13. Says she is feeling better. Abdominal pain much improved. Tenderness much improved on exam. Discussed findings from EGD. She'll need follow with GI as outpatient. Problem Qualifiers (1) Chest pain: Qualified Code: R07.9 - Chest pain, unspecified type (2) Hepatitis C: Qualified Code: B18.2 - Chronic hepatitis C without hepatic coma (3) DM (diabetes mellitus): Qualified Code: E11.8 - Type 2 diabetes mellitus with complication, without long-term current use of insulin (4) Chronic back pain: Qualified Code: M54.9 - Chronic back pain, unspecified back location, unspecified back pain laterality Brenton Farrell Aug 13, 2016 08:39 Wilton Barron MD Aug 14, 2016 02:21
[2016-08-13] MEDS ORDERED: ALBUTEROL SULFATE 90 MCG/ACT HFA 8 GM INHALER INH PRN (08:45)
[2016-08-13] MEDS ORDERED: RESP: ALBUTEROL 2.5 MG/IPRATROPIUM 0.5 MG NEB (SCH) NEB ONE (08:45)
[2016-08-13] MEDS: METOPROLOL TARTRATE 25 MG TAB PO SCH (09:06)
[2016-08-13] MEDS: PANTOPRAZOLE SOD 40 MG DELAYED RELEASE TAB PO SCH (09:07)
[2016-08-13] MEDS: SODIUM CHLORIDE 0.9% FLUSH 5 ML FLUSH FLUSH SCH (09:08)
[2016-08-13] MEDS: MORPHINE SULFATE 4 MG/ML INJ IV PRN ×2 (09:11→16:45)
[2016-08-13 10:46] VITALS: BP 143/66; PULSE 74; RESP 20; TEMP 97.9; O2SAT 98
[2016-08-13] MEDS ORDERED: PROPOFOL 200 MG/20 ML AMP IV ONE (12:37)
--- NOTE | 2016-08-13 15:26 | HHI.GIFU ---
Subjective Remarks doing ok, no new problem still having some mid epigastric discomfort Objective Vitals I&O Vital Signs Date Time Temp Pulse Resp B/P Pulse Ox O2 Delivery O2 Flow Rate FiO2 08/13/16 12:54 73 18 128/77 95 08/13/16 12:49 73 16 120/77 90 08/13/16 12:44 97.5 74 16 129/72 90 08/13/16 10:46 97.9 74 20 143/66 98 08/13/16 09:38 20 08/13/16 08:18 97.9 74 20 143/66 98 08/13/16 03:49 97.4 71 20 141/65 99 08/13/16 00:03 98.3 71 20 134/78 97 08/12/16 20:00 67 08/12/16 16:27 97.6 75 18 163/74 100 I/O 08/12/16 08/12/16 08/12/16 08/13/16 08/13/16 08/13/16 07:00 15:00 23:00 07:00 15:00 23:00 Intake Total 300 ml Balance 300 ml Intake IV Total 300 ml # Voids 1 4 Physical Exam HEENT: Pupils round and reactive to light; normocephalic; atraumatic; no jaundice. Throat is clear. NECK: Neck is supple, no JVD, no lymphadenopathy. CHEST: Chest is clear to auscultation and percussion. CARDIAC: Regular rate and rhythm with no murmur gallop or rubs. ABDOMEN: Soft, nondistended, mild mid epigastric discomfort; no hepatosplenomegaly; bowel sounds are present in all four quadrants. EXTREMITIES: No clubbing, cyanosis, or edema. SKIN: Normal; no rash; no jaundice. QUALITY PROJECT MANAGER: No focal deficits; alert and oriented times three. Assessment and Plan Assessment: (1) Hepatitis C Plan: S/p treatment with Harvoni completed Tx in January 2016 Reports she cleared virus initially then was found to virus return (2) DM (diabetes mellitus) (3) Cirrhosis of liver (4) Hx of esophageal varices Plan: S/p banding one year ago Plan This is a 56 year old female admitted with chest pain, has know Hx Hepatitis C S /P treatment with Harvoni in completed January 2016, initially cleared virus then it returned. She has liver cirrhosis and an abnormal Gb US seen by surgery with no surgery needed a this time. She is having epigastric pain and has a Hx of Esophageal varices S/P banding about one year ago. Denies any signs of bleeding. She is homeless and has been off all medications for sometime. H&H is 11.6/35.1 116 doing ok, S/P EGD today showed gastric ulcer and gastritis, also esophageal stricture S/P dilation Plan -Follow H&H -Call GI for any bleeding -continue PPI -Check HCV viral load and genotype -DM per PCP Supportive care and Case management for assistance with DC needs Problem Qualifiers (1) Hepatitis C: Qualified Code: B18.2 - Chronic hepatitis C without hepatic coma (2) DM (diabetes mellitus): Qualified Code: E11.8 - Type 2 diabetes mellitus with complication, without long-term current use of insulin (3) Cirrhosis of liver: Jacque Pedroza MD Aug 13, 2016 15:26
[2016-08-13] MEDS ORDERED: METO25TA3 PO (15:36)
[2016-08-13] MEDS ORDERED: VENTAER INH (15:36)
[2016-08-13] MEDS ORDERED: PANT40TA3 PO (15:36)
[2016-08-13 15:52] VITALS: BP 189/85; PULSE 80; RESP 20; TEMP 97.9; O2SAT 95
[2016-08-13 17:51] VITALS: RESP 20
[2016-08-15 09:55] LABS: HCV RNA PCR IU/ML 523 IU/mL (()); HCV RNA PCR LOGIU/ML 2.72 (())
[2016-08-17 04:03] LABS: HEPATITIS C RNA GENOTYPE GENOTYPE 1b (())
[2016-09-04] MEDS ORDERED: POTA10CA PO (10:16)
[2016-09-04] MEDS ORDERED: VITACAP7 PO (10:16)
[2016-09-04] MEDS ORDERED: FURO1TAB62 PO (10:16)
[2016-09-04] MEDS ORDERED: BENA25TA3 PO (10:16)
[2016-09-04] MEDS ORDERED: LANTUS2P SQ (10:16)
[2016-09-04] MEDS ORDERED: DIAZ10TA PO (10:16)
[2016-09-04] MEDS ORDERED: CLAR10CA3 PO (10:16)
== END 2016-08-13 19:43 | disposition home or self-care (01) ==
LOC: NEPC 19:09 → NEDA 08-11 00:43 → NEPHCDU 08-11 01:40
PROVIDERS: ADMIT Internal Medicine; ATTEND Internal Medicine
DX: R07.9 Chest pain, unspecified (principal); B18.2 Chronic viral hepatitis C; E11.9 Type 2 diabetes mellitus without complications; K74.60 Unspecified cirrhosis of liver; K29.00 Acute gastritis without bleeding; K25.9 Gastric ulcer, unspecified as acute or chronic, without hemorrhage or perforation; K22.2 Esophageal obstruction; R42 Dizziness and giddiness; G89.29 Other chronic pain; R53.1 Weakness; M54.9 Dorsalgia, unspecified; I10 Essential (primary) hypertension; Z79.84 Long term (current) use of oral hypoglycemic drugs; M48.00 Spinal stenosis, site unspecified; M79.606 Pain in leg, unspecified; D69.6 Thrombocytopenia, unspecified; R74.0 Nonspecific elevation of levels of transaminase and lactic acid dehydrogenase [LDH]; Z59.0 Homelessness; R79.89 Other specified abnormal findings of blood chemistry
CPT/HCPCS: 00740; 43239; 43248; 70450; 71010; 72125; 76705; 80053; 80061; 82948; 83036; 83690; 83735; 84443; 84484; 85025; 85027; 85610; 85730; 87522; 87902; 88305; 88312; 93005; 94664; 96374; 99285; C1769; G0378; J2270; J2543; J3480

== ENCOUNTER 2016-08-21 18:32 | Emergency (ER) | payer OTHER ==
[~2016-08-21] VITALS: Ht 160 cm; Wt 115.0 kg
[~2016-08-21 18:32] MED LIST changes: -CYCL1TAB29 PO; -DIAZ10 PO; -GLIP10TA6 PO; -LANTUS2P SQ; -LEVO25TA4 PO; +METO25TA3 PO; +PANT40TA3 PO; +VENTAER INH
[2016-08-21 18:35] VITALS: BP 185/88; PULSE 90; RESP 14; TEMP 98.8; O2SAT 96
[2016-08-21 21:34] LABS: AUTOMATED NEUTROPHIL # 2.2 TH/MM3 (1.8-7.7); BASOPHIL % 0.4 % (0.0-2.0); EOSINOPHIL # 0.2 TH/MM3 (0-0.4); EOSINOPHIL % 3.5 % (0.0-4.0); HEMATOCRIT 39.3 % (35.0-46.0); LYMPH % 41.2 % (9.0-44.0); LYMPHOCYTE # 2.1 TH/MM3 (1.0-4.8); MEAN CELL VOLUME 90.8 FL (80.0-100.0); MEAN CORPUSCULAR HEMOGLOBIN 29.7 PG (27.0-34.0); MEAN CORPUSCULAR HGB CONC 32.8 % (32.0-36.0); MONO % 13.4 % (0.0-8.0); NEUT % 41.5 % (16.0-70.0); PLATELET COUNT 95 TH/MM3 (150-450); RED BLOOD COUNT 4.33 MIL/MM3 (4.00-5.30); RED CELL DISTRIBUTION WIDTH 15.5 % (11.6-17.2); WHITE BLOOD COUNT 5.2 TH/MM3 (4.0-11.0)
[2016-08-21 21:36] LABS: HEMO FLAGS AUTO DIFF
[2016-08-21 21:48] LABS: APTT (PATIENT) 27.6 SEC (24.3-30.1); INTERNATIONAL NORMALIZED RATIO 1.2 RATIO; PROTHROMBIN TIME - PATIENT 13.4 SEC (9.8-11.6)
[2016-08-21 22:11] LABS: PLATELET ESTIMATE SMEAR LOW (NORMAL); PLATELET MORPHOLOGY NORMAL (NORMAL); SCAN/DIFF AUTO DIFF CONFIRMED
[2016-08-21 22:20] LABS: ALKALINE PHOSPHATASE 239 U/L (45-117); ALT (GPT) 90 U/L (10-53); ANION GAP 6 MEQ/L (5-15); AST (GOT) 116 U/L (15-37); BLOOD UREA NITROGEN 12 MG/DL (7-18); CHLORIDE 106 MEQ/L (98-107); GLOMERULAR FILTRATION RATE 113 ML/MIN (>89); POTASSIUM 4.1 MEQ/L (3.5-5.1); SODIUM (NA) 139 MEQ/L (136-145); TOTAL BILIRUBIN ADULT 2.3 MG/DL (0.2-1.0)
[2016-08-21 23:48] VITALS: BP 155/67; PULSE 90; RESP 18; O2SAT 97
[2016-08-22] MEDS ORDERED: SODIUM CHLORIDE 0.9% FLUSH 5 ML FLUSH IVF PRN
[2016-08-22] MEDS ORDERED: MORPHINE SULFATE 8 MG/ML INJ IV PUSH ONE
[2016-08-22 00:31] VITALS: O2SAT 96
[2016-08-22 00:50] LABS: APTT (PATIENT) 27.4 SEC (24.3-30.1); INTERNATIONAL NORMALIZED RATIO 1.3 RATIO
[2016-08-22 01:04] LABS: ALKALINE PHOSPHATASE 208 U/L (45-117); ALT (GPT) 84 U/L (10-53); ANION GAP 5 MEQ/L (5-15); AST (GOT) 136 U/L (15-37); BICARBONATE 28.1 MEQ/L (21.0-32.0); BLOOD UREA NITROGEN 12 MG/DL (7-18); CHLORIDE 108 MEQ/L (98-107); GLOMERULAR FILTRATION RATE 106 ML/MIN (>89); MAGNESIUM 1.8 MG/DL (1.5-2.5); SODIUM (NA) 141 MEQ/L (136-145); TOTAL BILIRUBIN ADULT 2.4 MG/DL (0.2-1.0)
[2016-08-22 01:05] LABS: POTASSIUM 5.1 MEQ/L (3.5-5.1)
--- NOTE | 2016-08-22 01:28 | PD ---
HPI Chief Complaint: Chest Pain Time Seen by Provider: 23:45 Travel History International Travel<30 days: No Contact w/Intl Traveler<30days: No Traveled to known affect area: No History of Present Illness HPI Patient is a 56-year-old female presents today with multiple complaints: Back pain lower extremity pain, chest pain, headache. Patient states that she has been admitted for this earlier this month and did see a staffing manager as well as had an endoscopy showing that she had ulcers. Patient states that her pain has been there for several months and comes and goes and gradually gets worse. States her pain got severe earlier tonight. She denies any shortness of breath nausea or vomiting. She states her pain is sharp in nature in the subxiphoid area. PFSH Past Medical History Asthma: Yes Anxiety: Yes Depression: Yes Heart Rhythm Problems: No Cancer: No Cardiovascular Problems: Yes High Cholesterol: No Chemotherapy: No Chest Pain: Yes Congestive Heart Failure: No COPD: No Diabetes: Yes Patient Takes Glucophage: Yes Endocrine: Yes Genitourinary: No Hepatitis: Yes (HEP C) Hypertension: Yes Immune Disorder: No Musculoskeletal: Yes (BULDGING DISC, Spinal stenosis) Neurologic: No Psychiatric: Yes Reproductive: No Respiratory: Yes Immunizations Current: Yes Radiation Therapy: No Sleep Apnea: No Thyroid Disease: No Past Surgical History Cardiac Surgery: Yes Social History Alcohol Use: No Tobacco Use: No Substance Use: No Allergies-Medications (Allergen,Severity, Reaction): Coded Allergies: Latex (Verified Allergy, Severe, rash and swelling, 08/10/16) Metformin (Verified Allergy, Severe, 08/10/16) Motrin (Verified Allergy, Severe, 08/10/16) Reported Meds & Prescriptions Reported Meds & Active Scripts Active Ventolin Hfa 18 GM Inh (Albuterol Sulfate) 90 Mcg/Act Aer 2 Puff INH Q4H PRN Pantoprazole (Pantoprazole Sodium) 40 Mg Tab 40 Mg PO DAILY Metoprolol Tartrate 25 Mg Tab 12.5 Mg PO Q12HR Review of Systems Except as stated in HPI: all other systems reviewed are Neg Physical Exam Narrative GENERAL: Well-developed, morbidly obese in no apparent distress. SKIN: Warm and dry. HEAD: Atraumatic. Normocephalic. EYES: Pupils equal and round. No scleral icterus. No injection or drainage. ENT: No nasal bleeding or discharge. Mucous membranes pink and moist. NECK: Trachea midline. No JVD. CARDIOVASCULAR: Regular rate and rhythm. No murmur appreciated. RESPIRATORY: No accessory muscle use. Clear to auscultation. Breath sounds equal bilaterally. GASTROINTESTINAL: Abdomen soft, non-tender, nondistended. Hepatic and splenic margins not palpable. MUSCULOSKELETAL: No obvious deformities. No clubbing. No cyanosis. No edema. NEUROLOGICAL: Awake and alert. No obvious cranial nerve deficits. Motor grossly within normal limits. Normal speech. PSYCHIATRIC: Appropriate mood and affect; insight and judgment normal. Data Data Last Documented VS Vital Signs Date Time Temp Pulse Resp B/P Pulse Ox O2 Delivery O2 Flow Rate FiO2 08/22/16 05:59 98.3 78 18 120/67 98 Room Air Orders Complete Blood Count With Diff (08/21/16 21:06) Comprehensive Metabolic Panel (08/21/16 21:06) Coag Profile (08/21/16 21:06) Electrocardiogram (08/21/16 ) Troponin I (08/21/16 21:18) Lipase (08/21/16 22:31) Comprehensive Metabolic Panel (08/21/16 23:56) Magnesium (Mg) (08/21/16 23:56) Prothrombin Time / Inr (Pt) (08/21/16 23:56) Act Partial Throm Time (Ptt) (08/21/16 23:56) Troponin I (08/21/16 23:56) Chest, Single Ap (08/21/16 23:56) Ecg Monitoring (08/21/16 23:56) Bilateral Bp Monitoring (08/21/16 23:56) Iv Access Insert/Monitor (08/21/16 23:56) Oximetry (08/21/16 23:56) Oxygen Administration (08/21/16 23:56) Sodium Chloride 0.9% Flush (Ns Flush) (08/22/16 00:00) Morphine Inj (Morphine Inj) (08/22/16 00:00) Oxycodone (Roxicodone) (08/22/16 05:30) Labs Laboratory Tests Test 08/21/16 08/22/16 21:00 00:25 White Blood Count 5.2 TH/MM3 Red Blood Count 4.33 MIL/MM3 Hemoglobin 12.9 GM/DL Hematocrit 39.3 % Mean Corpuscular Volume 90.8 FL Mean Corpuscular Hemoglobin 29.7 PG Mean Corpuscular Hemoglobin 32.8 % Concent Red Cell Distribution Width 15.5 % Platelet Count 95 TH/MM3 Mean Platelet Volume 10.3 FL Neutrophils (%) (Auto) 41.5 % Lymphocytes (%) (Auto) 41.2 % Monocytes (%) (Auto) 13.4 % Eosinophils (%) (Auto) 3.5 % Basophils (%) (Auto) 0.4 % Neutrophils # (Auto) 2.2 TH/MM3 Lymphocytes # (Auto) 2.1 TH/MM3 Monocytes # (Auto) 0.7 TH/MM3 Eosinophils # (Auto) 0.2 TH/MM3 Basophils # (Auto) 0.0 TH/MM3 CBC Comment AUTO DIFF Differential Comment AUTO DIFF CONFIRMED Platelet Estimate LOW Platelet Morphology Comment NORMAL Prothrombin Time 13.4 SEC 14.0 SEC Prothromb Time International 1.2 RATIO 1.3 RATIO Ratio Activated Partial 27.6 SEC 27.4 SEC Thromboplast Time Sodium Level 139 MEQ/L 141 MEQ/L Potassium Level 4.1 MEQ/L 5.1 MEQ/L Chloride Level 106 MEQ/L 108 MEQ/L Carbon Dioxide Level 27.0 MEQ/L 28.1 MEQ/L Anion Gap 6 MEQ/L 5 MEQ/L Blood Urea Nitrogen 12 MG/DL 12 MG/DL Creatinine 0.65 MG/DL 0.69 MG/DL Estimat Glomerular Filtration 113 ML/MIN 106 ML/MIN Rate Random Glucose 105 MG/DL 114 MG/DL Calcium Level 8.7 MG/DL 8.6 MG/DL Total Bilirubin 2.3 MG/DL 2.4 MG/DL Aspartate Amino Transf 116 U/L 136 U/L (AST/SGOT) Alanine Aminotransferase 90 U/L 84 U/L (ALT/SGPT) Alkaline Phosphatase 239 U/L 208 U/L Troponin I LESS THAN 0.02 LESS THAN 0.02 NG/ML NG/ML Total Protein 8.2 GM/DL 7.6 GM/DL Albumin 2.6 GM/DL 2.4 GM/DL Lipase 281 U/L Magnesium Level 1.8 MG/DL [facility] Medical Decision Making Medical Screen Exam Complete: Yes Emergency Medical Condition: Yes Interpretation(s) EKG shows normal sinus rhythm with a normal axis and normal R-wave progression. No concerning ST T changes intervals within normal limits. This perfectly normal EKG. No change from 08/10/2016. Differential Diagnosis Acute on chronic pain, chest pain, back pain, or shoulder pain, cauda equina excluded clinically, ACS seems unlikely. Narrative Course Patient's 56-year-old female presents to the emergency department for evaluation of multiple pain. Her chief complaint is actually "when my chronic pain gets worse by blood pressure goes up and 9 no blood pressure and lead to stroke and I want have a stroke". Patient is been trying to establish with a primary care physician that she does not have any health insurance time. She is polite and courteous. And was given, EKG labs negative. No indication for further workup in the emergency department at this time. She was seen by a staffing manager earlier this month on admission and was cleared for an endoscopy. Discussed need to follow-up with his staffing manager as well. She has appointment was with a staffing manager as well as primary care physician that she is waiting for insurance to kick in. Diagnosis Primary Impression: Atypical chest pain Disposition: 01 DISCHARGE HOME Condition: Stable Haroldo Cotto MD Aug 22, 2016 01:28
--- NOTE | 2016-08-22 02:05 | RADRPT ---
EXAM DATE/TIME: 08/22/2016 00:06 [facility] COMPARISON: CHEST SINGLE AP, August 10, 2016, 20:10. INDICATIONS : Patient states chest pains. MEDICAL HISTORY : Hypertension. Diabetes mellitus type II. SURGICAL HISTORY : None. ENCOUNTER: Initial ACUITY: 1 day PAIN SCORE: 4/10 LOCATION: Bilateral chest FINDINGS: A single view of the chest demonstrates the lungs to be symmetrically aerated without evidence of mas s, infiltrate or effusion. The cardiomediastinal contours are unremarkable. Osseous structures are intact. CONCLUSION: No acute disease. Santos Jacobo MD on August 22, 2016 at 2:03 Board Certified Radiologist. This report was verified electronically.
[2016-08-22 05:59] VITALS: BP 120/67; PULSE 78; RESP 18; TEMP 98.3; O2SAT 98
--- NOTE | 2016-08-22 10:51 | EKG ---
Date Performed: 08/21/2016 Time Performed: 21:13:48 PTAGE: 56 years EKG: Sinus rhythm NORMAL ECG PREVIOUS TRACING : 08/10/2016 19.27 Compared to prior tracing no significant change DOCTOR: Myles Ricketts Interpretating Date/Time 08/22/2016 10:49:56
[2016-09-04] MEDS ORDERED: CLAR10CA3 PO (10:16)
[2016-09-04] MEDS ORDERED: LANTUS2P SQ (10:16)
[2016-09-04] MEDS ORDERED: FURO1TAB62 PO (10:16)
[2016-09-04] MEDS ORDERED: POTA10CA PO (10:16)
[2016-09-04] MEDS ORDERED: DIAZ10TA PO (10:16)
[2016-09-04] MEDS ORDERED: BENA25TA3 PO (10:16)
[2016-09-04] MEDS ORDERED: VITACAP7 PO (10:16)
== END 2016-08-22 06:09 | disposition home or self-care (01) ==
LOC: NEPC 18:32
DX: R07.89 Other chest pain (principal); J45.909 Unspecified asthma, uncomplicated; E11.9 Type 2 diabetes mellitus without complications; I10 Essential (primary) hypertension; B19.20 Unspecified viral hepatitis C without hepatic coma
CPT/HCPCS: 71010; 80053; 83690; 83735; 84484; 85025; 85610; 85730; 93005; 96374; 99284; J2270

== ENCOUNTER 2016-08-24 00:13 | Emergency (ER) | payer OTHER ==
[~2016-08-24] VITALS: Ht 160 cm; Wt 110.0 kg
[2016-08-24 00:16] VITALS: BP 171/77; PULSE 93; RESP 20; TEMP 98.4; O2SAT 98
[2016-08-24] MEDS ORDERED: MORPHINE SULFATE 4 MG/ML INJ IM ONE (01:00)
[2016-08-24] MEDS ORDERED: MORPHINE SULFATE 4 MG/ML INJ IV PUSH ONE (02:00)
[2016-08-24 02:14] LABS: AUTOMATED NEUTROPHIL # 1.8 TH/MM3 (1.8-7.7); BASOPHIL % 0.5 % (0.0-2.0); EOSINOPHIL # 0.2 TH/MM3 (0-0.4); EOSINOPHIL % 3.9 % (0.0-4.0); HEMATOCRIT 34.8 % (35.0-46.0); LYMPH % 44.9 % (9.0-44.0); LYMPHOCYTE # 2.1 TH/MM3 (1.0-4.8); MEAN CELL VOLUME 89.9 FL (80.0-100.0); MEAN CORPUSCULAR HEMOGLOBIN 29.8 PG (27.0-34.0); MEAN CORPUSCULAR HGB CONC 33.2 % (32.0-36.0); MONO % 13.3 % (0.0-8.0); NEUT % 37.4 % (16.0-70.0); PLATELET COUNT 99 TH/MM3 (150-450); RED BLOOD COUNT 3.87 MIL/MM3 (4.00-5.30); RED CELL DISTRIBUTION WIDTH 14.9 % (11.6-17.2); WHITE BLOOD COUNT 4.7 TH/MM3 (4.0-11.0)
[2016-08-24 02:23] LABS: HEMO FLAGS AUTO DIFF
[2016-08-24 02:29] LABS: ALT (GPT) 77 U/L (10-53); ANION GAP 5 MEQ/L (5-15); AST (GOT) 98 U/L (15-37); BICARBONATE 28.8 MEQ/L (21.0-32.0); CHLORIDE 107 MEQ/L (98-107); GLOMERULAR FILTRATION RATE 113 ML/MIN (>89); POTASSIUM 4.1 MEQ/L (3.5-5.1); SODIUM (NA) 141 MEQ/L (136-145)
[2016-08-24 02:32] LABS: ALKALINE PHOSPHATASE 218 U/L (45-117); BLOOD UREA NITROGEN 12 MG/DL (7-18); TOTAL BILIRUBIN ADULT 2.1 MG/DL (0.2-1.0)
[2016-08-24 03:02] LABS: PLATELET ESTIMATE SMEAR LOW (NORMAL); PLATELET MORPHOLOGY NORMAL (NORMAL); SCAN/DIFF AUTO DIFF CONFIRMED
[2016-08-24 03:54] VITALS: BP 182/80; PULSE 90; RESP 16; O2SAT 98
--- NOTE | 2016-08-24 03:54 | RADRPT ---
EXAM DATE/TIME: 08/24/2016 03:00 [facility] COMPARISON: No previous studies available for comparison. INDICATIONS : Pain in bilateral lower extremities. MEDICAL HISTORY : Hepatitis C. Hypertension. Cirrhosis. Spinal stenosis. Asthma. Bulging disc. Diabetes. GI Bleed. Esop hageal varices. Chronic back pain. Gallbladder disease. SURGICAL HISTORY : Esophageal varice banding. ENCOUNTER: Initial ACUITY: 3 days PAIN SCORE: 10/10 LOCATION: Bilateral legs. TECHNIQUE: Venous ultrasound of the left and right leg was performed from the inguinal ligament to the proximal calf. Real-time, color Doppler and spectral tracing, compression and augmentation techniques were us ed. FINDINGS: RIGHT LEG: There is normal compressibility of the deep venous system from the inguinal region to the proximal ca lf. No echogenic clot is seen in the lumen of the common femoral, femoral, popliteal, and posterior tibial veins. There is a normal response of the venous system to proximal and distal augmentation an d respiration. LEFT LEG: There is normal compressibility of the deep venous system from the inguinal region to the proximal ca lf. No echogenic clot is seen in the lumen of the common femoral, femoral, popliteal, and posterior tibial veins. There is a normal response of the venous system to proximal and distal augmentation an d respiration. CONCLUSION: 1. No evidence of deep venous thrombosis. Jamir Olivera MD on August 24, 2016 at 3:52 Board Certified Radiologist. This report was verified electronically.
[2016-08-24] MEDS ORDERED: MEDICAL COMPRES1 MIS ×2 (04:47→04:48)
--- NOTE | 2016-08-24 04:49 | PD ---
HPI Chief Complaint: Edema Time Seen by Provider: 00:39 Travel History International Travel<30 days: No Contact w/Intl Traveler<30days: No Traveled to known affect area: No History of Present Illness HPI Patient is a 56-year-old female with history of hepatitis C, who comes in complaining of swelling of her legs. She says that she has had the swelling for a while, now she is having pain from her knees down to her ankles. She was here recently and had a complete workup for the edema. In her past workups, it was found that she did not have any evidence of CHF, renal function was normal. She denies any chest pain or shortness of breath. She says she thinks the pain is increased because it has been raining. She has not taken anything at home for pain. She denies any injuries to her legs. PFSH Past Medical History Asthma: Yes Anxiety: Yes Depression: Yes Heart Rhythm Problems: No Cancer: No Cardiovascular Problems: Yes (HTN) High Cholesterol: No Chemotherapy: No Chest Pain: Yes Congestive Heart Failure: No COPD: No Diabetes: Yes Patient Takes Glucophage: Yes (GLYPIZIDE UNKNOWN LAST) Endocrine: Yes Gastrointestinal Disorders: Yes (Hep C) Genitourinary: No Hepatitis: Yes (HEP C) Hypertension: Yes Immune Disorder: No Musculoskeletal: Yes (BULDGING DISC, Spinal stenosis) Neurologic: No Psychiatric: Yes Reproductive: No Respiratory: Yes Immunizations Current: Yes Radiation Therapy: No Sleep Apnea: No Thyroid Disease: No Past Surgical History Cardiac Surgery: Yes Other Surgery: No Social History Alcohol Use: No Tobacco Use: No Substance Use: No Allergies-Medications (Allergen,Severity, Reaction): Coded Allergies: Latex (Verified Allergy, Severe, rash and swelling, 08/25/16) Metformin (Verified Allergy, Severe, 08/25/16) Motrin (Verified Allergy, Severe, 08/25/16) Tylenol (Verified Allergy, Severe, Nausea/Vomiting, 08/25/16) Reported Meds & Prescriptions Reported Meds & Active Scripts Active Medical Compression Elastic Stockings 1 Mis Mis 1 Ea .ROUTE DIRECTED Ventolin Hfa 18 GM Inh (Albuterol Sulfate) 90 Mcg/Act Aer 2 Puff INH Q4H PRN Pantoprazole (Pantoprazole Sodium) 40 Mg Tab 40 Mg PO DAILY Metoprolol Tartrate 25 Mg Tab 12.5 Mg PO Q12HR Review of Systems Except as stated in HPI: all other systems reviewed are Neg General / Constitutional: No: Fever, Chills HENT: No: Headaches, Lightheadedness Cardiovascular: No: Chest Pain or Discomfort Respiratory: No: Shortness of Breath Gastrointestinal: No: Nausea, Vomiting Musculoskeletal: Positive: Edema, Pain Skin: No Rash, No Change in Pigmentation Neurologic: No: Weakness, Dizziness Physical Exam Narrative GENERAL: Awake and alert in no acute distress. SKIN: Warm and dry. HEAD: Atraumatic. Normocephalic. EYES: Pupils equal and round. No scleral icterus. ENT: Mucous membranes pink and moist. NECK: Trachea midline. No JVD. CARDIOVASCULAR: Regular rate and rhythm. No murmur appreciated. RESPIRATORY: No accessory muscle use. Clear to auscultation. Breath sounds equal bilaterally. MUSCULOSKELETAL: No obvious deformities. No clubbing. No cyanosis. 2+ pitting edema of bilateral lower extremities. Tenderness to both calves. NEUROLOGICAL: Awake and alert. No obvious cranial nerve deficits. Motor grossly within normal limits. Normal speech. PSYCHIATRIC: Appropriate mood and affect; insight and judgment normal. Data Data Last Documented VS Vital Signs Date Time Temp Pulse Resp B/P Pulse Ox O2 Delivery O2 Flow Rate FiO2 08/24/16 03:54 90 16 182/80 98 Room Air 08/24/16 00:16 98.4 Orders Complete Blood Count With Diff (08/24/16 00:58) Comprehensive Metabolic Panel (08/24/16 00:58) Us Leg Venous Doppler Bilat (08/24/16 ) Morphine Inj (Morphine Inj) (08/24/16 01:00) Morphine Inj (Morphine Inj) (08/24/16 02:00) Oxycodone (Roxicodone) (08/24/16 04:30) Bandage, Elastic 6" (Godfrey) Ea (08/24/16 04:25) Labs Laboratory Tests Test 08/24/16 01:42 White Blood Count 4.7 TH/MM3 Red Blood Count 3.87 MIL/MM3 Hemoglobin 11.5 GM/DL Hematocrit 34.8 % Mean Corpuscular Volume 89.9 FL Mean Corpuscular Hemoglobin 29.8 PG Mean Corpuscular Hemoglobin 33.2 % Concent Red Cell Distribution Width 14.9 % Platelet Count 99 TH/MM3 Mean Platelet Volume 10.8 FL Neutrophils (%) (Auto) 37.4 % Lymphocytes (%) (Auto) 44.9 % Monocytes (%) (Auto) 13.3 % Eosinophils (%) (Auto) 3.9 % Basophils (%) (Auto) 0.5 % Neutrophils # (Auto) 1.8 TH/MM3 Lymphocytes # (Auto) 2.1 TH/MM3 Monocytes # (Auto) 0.6 TH/MM3 Eosinophils # (Auto) 0.2 TH/MM3 Basophils # (Auto) 0.0 TH/MM3 CBC Comment AUTO DIFF Differential Comment AUTO DIFF CONFIRMED Platelet Estimate LOW Platelet Morphology Comment NORMAL Sodium Level 141 MEQ/L Potassium Level 4.1 MEQ/L Chloride Level 107 MEQ/L Carbon Dioxide Level 28.8 MEQ/L Anion Gap 5 MEQ/L Blood Urea Nitrogen 12 MG/DL Creatinine 0.65 MG/DL Estimat Glomerular Filtration 113 ML/MIN Rate Random Glucose 106 MG/DL Calcium Level 8.4 MG/DL Total Bilirubin 2.1 MG/DL Aspartate Amino Transf 98 U/L (AST/SGOT) Alanine Aminotransferase 77 U/L (ALT/SGPT) Alkaline Phosphatase 218 U/L Total Protein 7.2 GM/DL Albumin 2.4 GM/DL [facility] Medical Decision Making Medical Screen Exam Complete: Yes Emergency Medical Condition: Yes Medical Record Reviewed: Yes Differential Diagnosis Peripheral edema versus renal failure versus liver failure versus DVT Narrative Course Patient is a 56-year-old female comes in complaining of pain and swelling to both of her legs. Exam shows edema bilateral lower extremities. IV established , labs sent. Labs show elevated bilirubin as well as AST and ALT, these are similar to her past labs drawn here. Doppler studies performed and both legs are negative for DVT. Patient given morphine for pain. Patient states she still having some pain, and given oxycodone. Given Godfrey wrap for both of her legs. Patient advised to get compression stockings for her legs. Advised to elevate her legs whenever she is sitting. Advised follow-up with a primary care doctor. Advised to return to the ED as needed for any worsening symptoms. Patient is comfortable with discharge at this time. Diagnosis Primary Impression: Lower extremity edema Qualified Code: R60.0 - Bilateral edema of lower extremity Patient Instructions: General Instructions, Leg Edema (ED) Additional Instructions: Follow up with a primary care physician. Keep your legs elevated when sitting. Wear compression stockings. Return to the ED as needed for any worsening symptoms. Scripts Medical Compression Elastic Stockings 1 Mis Mis #2 Ea .route As Directed Prov:Sunitha Macias MD 08/24/16 Disposition: 01 DISCHARGE HOME Condition: Stable uSnitha Macias MD Aug 24, 2016 04:49
[2016-09-04] MEDS ORDERED: BENA25TA3 PO (10:16)
[2016-09-04] MEDS ORDERED: CLAR10CA3 PO (10:16)
[2016-09-04] MEDS ORDERED: LANTUS2P SQ (10:16)
[2016-09-04] MEDS ORDERED: POTA10CA PO (10:16)
[2016-09-04] MEDS ORDERED: FURO1TAB62 PO (10:16)
[2016-09-04] MEDS ORDERED: DIAZ10TA PO (10:16)
[2016-09-04] MEDS ORDERED: VITACAP7 PO (10:16)
== END 2016-08-24 05:45 | disposition home or self-care (01) ==
LOC: NEPE 00:13
DX: R60.0 Localized edema (principal); M79.605 Pain in left leg; M79.604 Pain in right leg; J45.909 Unspecified asthma, uncomplicated; F32.9 Major depressive disorder, single episode, unspecified; E11.9 Type 2 diabetes mellitus without complications; Z79.84 Long term (current) use of oral hypoglycemic drugs; B19.20 Unspecified viral hepatitis C without hepatic coma; I10 Essential (primary) hypertension
CPT/HCPCS: 80053; 85025; 93970; 96374; 99284; J2270

== ENCOUNTER 2016-08-25 21:13 | Emergency (ER) | payer OTHER ==
[~2016-08-25] VITALS: Ht 160 cm; Wt 109.0 kg
[~2016-08-25 21:13] MED LIST changes: +MEDICAL COMPRES1 MIS
[2016-08-25 21:15] VITALS: BP 182/77; PULSE 98; RESP 18; TEMP 98; O2SAT 97
[2016-08-25] MEDS ORDERED: SODIUM CHLORIDE 0.9% FLUSH 5 ML FLUSH IVF PRN (22:45)
[2016-08-25 23:21] LABS: BASOPHIL % 0.5 % (0.0-2.0); EOSINOPHIL # 0.2 TH/MM3 (0-0.4); EOSINOPHIL % 4.2 % (0.0-4.0); HEMATOCRIT 34.6 % (35.0-46.0); HEMO FLAGS DIFF FINAL; LYMPH % 39.4 % (9.0-44.0); LYMPHOCYTE # 1.8 TH/MM3 (1.0-4.8); MEAN CELL VOLUME 91.3 FL (80.0-100.0); MEAN CORPUSCULAR HEMOGLOBIN 30.3 PG (27.0-34.0); MEAN CORPUSCULAR HGB CONC 33.2 % (32.0-36.0); NEUT % 42.9 % (16.0-70.0); PLATELET COUNT 108 TH/MM3 (150-450); RED BLOOD COUNT 3.79 MIL/MM3 (4.00-5.30); RED CELL DISTRIBUTION WIDTH 15.2 % (11.6-17.2); WHITE BLOOD COUNT 4.7 TH/MM3 (4.0-11.0)
[2016-08-25 23:25] LABS: APTT (PATIENT) 26.2 SEC (24.3-30.1); INTERNATIONAL NORMALIZED RATIO 1.2 RATIO; PROTHROMBIN TIME - PATIENT 13.8 SEC (9.8-11.6)
[2016-08-25 23:31] LABS: ALKALINE PHOSPHATASE 212 U/L (45-117); TOTAL BILIRUBIN ADULT 1.9 MG/DL (0.2-1.0)
[2016-08-25 23:35] LABS: ALT (GPT) 71 U/L (10-53); ANION GAP 5 MEQ/L (5-15); AST (GOT) 92 U/L (15-37); BLOOD UREA NITROGEN 11 MG/DL (7-18); CHLORIDE 110 MEQ/L (98-107); GLOMERULAR FILTRATION RATE 101 ML/MIN (>89); POTASSIUM 4.4 MEQ/L (3.5-5.1); SODIUM (NA) 141 MEQ/L (136-145)
[2016-08-25 23:41] LABS: BACTERIA, URINE RARE /hpf; BLOOD, URINE LARGE (NEG); COMMENT (UR) CULT NOT INDICATED; CULTURE IF INDICATED CULT NOT INDICATED; GLUCOSE,URINE NEG (NEG); KETONE, URINE NEG (NEG); MUCUS URINE FEW /lpf (OCC); NITRITE,URINE NEG (NEG); SQUAMOUS EPITHELIAL CELL URINE 1 /hpf (0-5); URINE COLOR DARK-YELLOW (YELLW/STRAW)
--- NOTE | 2016-08-26 00:25 | RADRPT ---
EXAM DATE/TIME: 08/26/2016 00:02 [place] COMPARISON: No previous studies available for comparison. INDICATIONS : Abdominal pain with vaginal bleeding. ORAL CONTRAST: No oral contrast ingested. RADIATION DOSE: 16.39 CTDIvol (mGy) MEDICAL HISTORY : Hypertension. Hepatitis C. Diabetes mellitus type 2.Spinal stenosis. SURGICAL HISTORY : None. ENCOUNTER: Initial ACUITY: 1 day PAIN SCALE: 3/10 LOCATION: abdomen TECHNIQUE: Volumetric scanning of the abdomen and pelvis was performed. Using automated exposure control and ad justment of the mA and/or kV according to patient size, radiation dose was kept as low as reasonably achievable to obtain optimal diagnostic quality images. FINDINGS: LOWER LUNGS: Prominent bronchiectasis at the left lung base with a 2 cm lobular density in the posterior medial co stophrenic sulcus LIVER: Cirrhotic appearance without evidence of biliary ductal dilatation. Tiny nonspecific low density in t he dome. Stone present in a contracted gallbladder notable for nonspecific wall thickening. SPLEEN: Enlarged. Multitude of large tubular densities in the left upper quadrant are felt likely to be varic es potentially associated with splenorenal shunt PANCREAS: Within normal limits. KIDNEYS: Normal in size and shape. There is no mass, stone, or hydronephrosis. There are small phleboliths al gerson the course of the gonadal veins. I do not clearly see anything definitive for ureteral stone. ADRENAL GLANDS: Within normal limits. VASCULAR: There is no aortic aneurysm. BOWEL/MESENTERY: The stomach, small bowel, and colon demonstrate no acute abnormality. There is no free intraperitone al air or fluid. ABDOMINAL WALL: Within normal limits. RETROPERITONEUM: There is no lymphadenopathy. BLADDER: No wall thickening or mass. REPRODUCTIVE: Popcorn calcifications in the uterus consistent with fibroids. No evidence of free pelvic fluid. INGUINAL: There is no lymphadenopathy or hernia. MUSCULOSKELETAL: Within normal limits for patient age. CONCLUSION: No evidence of nephrolithiasis or hydronephrosis. Gallstone in a contracted gallbladder with nonspecific wall thickening. Cirrhotic liver with splenomegaly and prominent left upper quadrant varices Fibroid uterus. Bronchiectasis at the left lung base with nonspecific nodular density in the posterior left costophre michael sulcus Gil Adrian MD on August 26, 2016 at 0:12 Board Certified Radiologist. This report was verified electronically.
--- NOTE | 2016-08-26 00:27 | PD ---
HPI Chief Complaint: Abdominal Pain Time Seen by Provider: 22:33 Travel History International Travel<30 days: No Contact w/Intl Traveler<30days: No Traveled to known affect area: No History of Present Illness HPI The patient is 56 year old female who presents to the [facility] emergency department with a history of abdominal cramping that she reports began today and has been associated with vaginal bleeding. She reports that she has not had a menstrual cycle for the last 10 years prior to this. She reports that she recently moved to the area and has yet to establish with a primary care physician. The patient reports that she is currently not on any medications. She reports that she was recently admitted to the hospital and had endoscopy done. The patient had esophageal varices banded. The patient was also diagnosed with a stomach ulcer. The patient reports that she has not been able to fill any of her prescriptions since discharge. The patient reports that this pain is in the lower abdomen and similar to prior menstrual cycles regarding the cramping. The patient denies any recent fevers cough, congestion, neck pain, chest pain, shortness of breath, vomiting, diarrhea, urinary symptoms , or neurologic symptoms. [facility] Past Medical History Narrative Medical The patient's past medical history is significant for hepatitis C, cirrhosis, esophageal varices with recent banding, history of peptic ulcer disease, hypertension, diabetes mellitus, history of chronic back pain. Asthma: Yes Anxiety: Yes Depression: Yes Heart Rhythm Problems: No Cancer: No Cardiovascular Problems: Yes (HTN) High Cholesterol: No Chemotherapy: No Chest Pain: Yes Congestive Heart Failure: No COPD: No Diabetes: Yes Patient Takes Glucophage: No Diminished Hearing: No Endocrine: Yes Gastrointestinal Disorders: Yes (Hep C) Genitourinary: No Hepatitis: Yes (HEP C) Hypertension: Yes Immune Disorder: No Medical other: Yes (LIVER CIRROSIS) Musculoskeletal: Yes (BULDGING DISC, Spinal stenosis) Neurologic: No Psychiatric: Yes Reproductive: No Respiratory: Yes Immunizations Current: Yes Radiation Therapy: No Sleep Apnea: No Thyroid Disease: No Ulcer: Yes Past Surgical History Narrative Surgical The patient's past surgical history is significant for endoscopy with esophageal banding. Abdominal Surgery: Yes (BANDS ON INTESTINES) Cardiac Surgery: Yes Other Surgery: No Social History Alcohol Use: No Tobacco Use: No Substance Use: No Allergies-Medications (Allergen,Severity, Reaction): Coded Allergies: Latex (Verified Allergy, Severe, rash and swelling, 08/25/16) Metformin (Verified Allergy, Severe, 08/25/16) Motrin (Verified Allergy, Severe, 08/25/16) Tylenol (Verified Allergy, Severe, Nausea/Vomiting, 08/25/16) Reported Meds & Prescriptions Reported Meds & Active Scripts Active Medical Compression Elastic Stockings 1 Mis Mis 1 Ea .ROUTE DIRECTED Ventolin Hfa 18 GM Inh (Albuterol Sulfate) 90 Mcg/Act Aer 2 Puff INH Q4H PRN Pantoprazole (Pantoprazole Sodium) 40 Mg Tab 40 Mg PO DAILY Metoprolol Tartrate 25 Mg Tab 12.5 Mg PO Q12HR Review of Systems Except as stated in HPI: all other systems reviewed are Neg General / Constitutional: No: Fever Eyes: No: Visual changes HENT: No: Headaches Cardiovascular: No: Chest Pain or Discomfort Respiratory: No: Shortness of Breath Gastrointestinal: Positive: Abdominal Pain, No: Nausea, Vomiting, Diarrhea, Hematemesis, Hematochezia, Changes in Bowel Habits, Indigestion, Loss of Appetite Genitourinary: Positive: Pelvic Pain, Vaginal Bleeding, No: Dysuria Musculoskeletal: No: Pain Skin: No Rash Neurologic: No: Weakness Psychiatric: No: Depression Endocrine: No: Polydipsia Hematologic/Lymphatic: No: Easy Bruising Physical Exam Narrative General: The patient is a well-developed well-nourished female in no acute distress. Head and Neck exam: Head is normocephalic atraumatic. Eyes: Pupils are equal round and reactive to light. Nose: Midline septum with pink mucous membranes Mouth: Dentition unremarkable. Moist mucus membranes. Posterior oropharynx is not erythematous. No tonsillar hypertrophy. Uvula midline. Airway patent. Neck: No palpable lymphadenopathy. No nuchal rigidity. No thyromegaly. Cardiovascular: Regular rate and rhythm without murmurs, gallops, or rubs. Lungs: Clear to auscultation bilaterally. No wheezes, rhonchi, or rales. Abdomen: Soft, without tenderness to palpation in all 4 quadrants of the abdomen. No guarding, rebound, or rigidity. Normal bowel sounds are audible. Extremities: No clubbing, cyanosis, or edema. 2+ pulses in all 4 extremities. No calf tenderness on palpation. Back: No spinous process tenderness to palpation. No costovertebral angle tenderness to palpation. Neurologic Exam: Grossly nonfocal. Skin Exam: No rash noted. Intact skin that is warm and dry. Gynecologic exam: The patient was placed in the dorsal lithotomy position. Her external genitalia were examined. She had no evidence of rash or lesions. The speculum was placed into her vagina and the cervix was identified. She had minimal pink drainage noted. This was wet prep. She denies any sexual activity for years. She denies any concerns about sexually transmitted infections. No cervical friability. On Bimanual exam: she has no cervical motion tenderness. No adnexal tenderness or prominence noted on palpation. No uterine tenderness or enlargement noted on palpation. Data Data Last Documented VS Vital Signs Date Time Temp Pulse Resp B/P Pulse Ox O2 Delivery O2 Flow Rate FiO2 08/26/16 03:53 95 178/89 97 08/25/16 21:15 98.0 18 Room Air Orders Complete Blood Count With Diff (08/25/16 22:34) Comprehensive Metabolic Panel (08/25/16 22:34) Lipase (08/25/16 22:34) Lactic Acid (08/25/16 22:34) Prothrombin Time / Inr (Pt) (08/25/16 22:34) Act Partial Throm Time (Ptt) (08/25/16 22:34) Urinalysis - C+S If Indicated (08/25/16 22:34) Iv Access Insert/Monitor (08/25/16 22:34) Ecg Monitoring (08/25/16 22:34) Oximetry (08/25/16 22:34) Sodium Chloride 0.9% Flush (Ns Flush) (08/25/16 22:45) Electrocardiogram (08/25/16 22:34) C-Reactive Protein (Crp) (08/25/16 22:34) Ct Abd/Pel W/O Iv Contrast (08/25/16 23:49) Morphine Inj (Morphine Inj) (08/26/16 00:30) Ondansetron Inj (Zofran Inj) (08/26/16 00:30) Pantoprazole Inj (Protonix Inj) (08/26/16 00:30) Sodium Chlorid 0.9% 500 Ml Inj (Ns 500 M (08/26/16 00:30) Wet Prep Profile (08/26/16 02:40) Oxycodone (Roxicodone) (08/26/16 03:00) Fluconazole (Diflucan) (08/26/16 03:30) Labs Laboratory Tests Test 08/25/16 08/26/16 22:58 02:46 White Blood Count 4.7 TH/MM3 Red Blood Count 3.79 MIL/MM3 Hemoglobin 11.5 GM/DL Hematocrit 34.6 % Mean Corpuscular Volume 91.3 FL Mean Corpuscular Hemoglobin 30.3 PG Mean Corpuscular Hemoglobin 33.2 % Concent Red Cell Distribution Width 15.2 % Platelet Count 108 TH/MM3 Mean Platelet Volume 10.4 FL Neutrophils (%) (Auto) 42.9 % Lymphocytes (%) (Auto) 39.4 % Monocytes (%) (Auto) 13.0 % Eosinophils (%) (Auto) 4.2 % Basophils (%) (Auto) 0.5 % Neutrophils # (Auto) 2.0 TH/MM3 Lymphocytes # (Auto) 1.8 TH/MM3 Monocytes # (Auto) 0.6 TH/MM3 Eosinophils # (Auto) 0.2 TH/MM3 Basophils # (Auto) 0.0 TH/MM3 CBC Comment DIFF FINAL Differential Comment Prothrombin Time 13.8 SEC Prothromb Time International 1.2 RATIO Ratio Activated Partial 26.2 SEC Thromboplast Time Urine Color DARK-YELLOW Urine Turbidity HAZY Urine pH 6.0 Urine Specific [place] 1.033 Urine Protein TRACE mg/dL Urine Glucose (UA) NEG mg/dL Urine Ketones NEG mg/dL Urine Occult Blood LARGE Urine Nitrite NEG Urine Bilirubin SMALL Urine Urobilinogen 8.0 MG/DL Urine Leukocyte Esterase NEG Urine RBC 12 /hpf Urine WBC 1 /hpf Urine Squamous Epithelial 1 /hpf Cells Urine Bacteria RARE /hpf Urine Mucus FEW /lpf Microscopic Urinalysis Comment CULT NOT INDICATED Sodium Level 141 MEQ/L Potassium Level 4.4 MEQ/L Chloride Level 110 MEQ/L Carbon Dioxide Level 26.0 MEQ/L Anion Gap 5 MEQ/L Blood Urea Nitrogen 11 MG/DL Creatinine 0.72 MG/DL Estimat Glomerular Filtration 101 ML/MIN Rate Random Glucose 118 MG/DL Lactic Acid Level 1.1 mmol/L Calcium Level 8.3 MG/DL Total Bilirubin 1.9 MG/DL Aspartate Amino Transf 92 U/L (AST/SGOT) Alanine Aminotransferase 71 U/L (ALT/SGPT) Alkaline Phosphatase 212 U/L C-Reactive Protein 2.67 MG/DL Total Protein 7.1 GM/DL Albumin 2.3 GM/DL Lipase 266 U/L Clue Cells (Wet Prep) NONE SEEN Vaginal Trichomonas (Wet Prep) NONE SEEN Vaginal Yeast (Wet Prep) PRESENT MDM Medical Decision Making Medical Screen Exam Complete: Yes Emergency Medical Condition: Yes Medical Record Reviewed: Yes Interpretation(s) Last Impressions Abdomen/Pelvis CT 08/25/16 2349 Signed Impressions: Service Date/Time: Friday, August 26, 2016 00:02 - CONCLUSION: No evidence of nephrolithiasis or hydronephrosis. Gallstone in a contracted gallbladder with nonspecific wall thickening. Cirrhotic liver with splenomegaly and prominent left upper quadrant varices Fibroid uterus. Bronchiectasis at the left lung base with nonspecific nodular density in the posterior left costophrenic sulcus Gil Adrian MD Differential Diagnosis Postmenopausal bleeding related to fibroids, versus uterine cancer, versus coagulopathy Narrative Course During the course of the patients emergency department visit, the patients history, examination, and differential diagnosis were reviewed with the patient. The patient had IV access obtained and blood work sent for analysis. The patient had an EKG ordered. The patient was placed on a monitor and storage bin tender with oximetry and blood pressure monitoring. The patient's EKG shows a sinus rhythm heart rate of 88, no acute ST segment elevation, T waves inverted in V1, no acute ST segment depression. CT scan of the abdomen and pelvis was ordered. The patient was provided normal saline a 500 mL bolus 1. The patient was given morphine for pain, Zofran for nausea. The patient was given Protonix 40 mg IV. The patient's laboratory studies are remarkable for a CBC that shows a white count of 4.7, hemoglobin 11.5, platelets 108 with 13 monocytes, CMP is remarkable for chloride of 110, glucose 118, lactic acid 1.1, calcium 8.3, total bilirubin 1.9, AST 92, ALT 71, alkaline phosphatase 212 which is compared to previously and similar, C-reactive protein 2.67, albumin 2.3, lipase 266, PT 13.8, INR 1.2, urinalysis shows large occult blood 12 RBCs 1 WBC, rare bacteria. Wet prep shows yeast present. The patient was given Diflucan 1 for a yeast infection. She was given oxycodone 5 mg by mouth 1 for pain. Radiology studies were reviewed and remarkable for a CT scan of the abdomen and pelvis that shows no evidence of nephrolithiasis or hydronephrosis, gallstone and a contracted gallbladder with nonspecific wall thickening is noted, however this has been present previously and status post surgical evaluation thought to be related to her chronic liver disease. The patient has a cirrhotic liver with splenomegaly with prominent left upper quadrant varices. She has a fibroid tumor of the uterus, bronchiectasis of the left lung base with nonspecific nodular density in the posterior left costophrenic sulcus. The patient's results were discussed with her. The patient was instructed regarding the importance of following up with a clean room operator locally for additional testing. The patient was agreeable with this plan. She was given the name of the outpatient referral clean room operator for follow-up. . The patient is resting comfortably and feels better, is alert and in no distress. The patients results and examination findings were discussed with the patient The repeat examination is unremarkable and benign. The history, exam , diagnostic testing, and current condition do not suggest any significant pathology to warrant further testing, continued ED treatment, admission, or surgical evaluation at this point. The vital signs have been stable. The patient does not have uncontrollable pain, intractable vomiting, or other significant symptoms. The patient's condition is stable and appropriate for discharge. The patient will pursue further outpatient evaluation with a primary care physician or other designated or consulting physician as indicated in the discharge instructions. The patient expressed understanding and was agreeable with this plan. Diagnosis Primary Impression: Postmenopausal bleeding Referrals: Bridgette Carvalho MD 2 days Follow-up with this physician regarding postmenopausal bleeding. True Ferrell MD 3 days Follow-up with his physician to resume treatment for your other medical problems Patient Instructions: Dysfunctional Uterine Bleeding (ED), General Instructions Med/Other Pt SpecificInfo: No Change to Meds Disposition: 01 DISCHARGE HOME Condition: Stable Glenna Ricketts MD Aug 26, 2016 00:27
[2016-08-26] MEDS ORDERED: SODIUM CHLORID 0.9% 500 ML INJ 500 ML IV ONE (00:30)
[2016-08-26] MEDS ORDERED: PANTOPRAZOLE SODIUM 40 MG VIAL IV PUSH ONE (00:30)
[2016-08-26] MEDS ORDERED: MORPHINE SULFATE 4 MG/ML INJ IV PUSH ONE (00:30)
[2016-08-26] MEDS ORDERED: ONDANSETRON HCL 4 MG/2 ML VIAL IV PUSH ONE (00:30)
[2016-08-26] MEDS ORDERED: FLUCONAZOLE 100 MG TAB PO ONE (03:30)
[2016-08-26 03:53] VITALS: BP 178/89
--- NOTE | 2016-08-26 19:27 | EKG ---
Date Performed: 08/25/2016 Time Performed: 23:03:40 PTAGE: 56 years EKG: Sinus rhythm MODERATE VOLTAGE CRITERIA FOR LVH, CONSIDER NORMAL VARIANT BORDERLINE ECG PREVIOUS TRACING : 08/21/2016 21.13 DOCTOR: August Griffin Interpretating Date/Time 08/26/2016 19:23:19
[2016-09-04] MEDS ORDERED: FURO1TAB62 PO (10:16)
[2016-09-04] MEDS ORDERED: LANTUS2P SQ (10:16)
[2016-09-04] MEDS ORDERED: BENA25TA3 PO (10:16)
[2016-09-04] MEDS ORDERED: POTA10CA PO (10:16)
[2016-09-04] MEDS ORDERED: VITACAP7 PO (10:16)
[2016-09-04] MEDS ORDERED: CLAR10CA3 PO (10:16)
[2016-09-04] MEDS ORDERED: DIAZ10TA PO (10:16)
== END 2016-08-26 04:07 | disposition home or self-care (01) ==
LOC: NEPE 21:13
DX: N95.0 Postmenopausal bleeding (principal); G89.29 Other chronic pain; B19.20 Unspecified viral hepatitis C without hepatic coma; I10 Essential (primary) hypertension; E11.9 Type 2 diabetes mellitus without complications; K74.60 Unspecified cirrhosis of liver; J45.909 Unspecified asthma, uncomplicated; R94.31 Abnormal electrocardiogram [ECG] [EKG]
CPT/HCPCS: 74176; 80053; 81001; 83605; 83690; 85025; 85610; 85730; 86140; 87210; 93005; 96361; 96374; 96375; 99284; C9113; J2270; J2405; J7040

== ENCOUNTER 2016-08-27 16:17 | Emergency (ER) | payer OTHER ==
[~2016-08-27] VITALS: Ht 160 cm; Wt 100.0 kg
[2016-08-27 16:18] VITALS: BP 177/75; PULSE 95; RESP 14; TEMP 98.5; O2SAT 100
[2016-08-27 18:46] VITALS: BP 150/70; PULSE 84; RESP 16; O2SAT 99
--- NOTE | 2016-08-27 19:09 | PD ---
HPI Chief Complaint: Edema Time Seen by Provider: 18:23 Travel History International Travel<30 days: No Contact w/Intl Traveler<30days: No Traveled to known affect area: No History of Present Illness HPI Patient is a 56 year old female presents to the emergency department with a chief complaint to me of right knee pain. Patient known to me from ED visit earlier this week. She has had 5 ed visits in the past month one admission and 4 ed visits within the past week all for similiar complaints. Patient states she has a history of cirrhosis and her legs have been swollen and painful. She states her right knee join hurts her even to walk but states the pain is in the joint not the calf. She has had US dvt this week and labs 4 times in this hospital this month all reassuring. She denies any acute changes. Denies fevers, denies SOB, denies CP. PFSH Past Medical History Asthma: Yes Anxiety: Yes Depression: Yes Heart Rhythm Problems: No Cancer: No Cardiovascular Problems: Yes (HTN) High Cholesterol: No Chemotherapy: No Chest Pain: Yes Congestive Heart Failure: No COPD: No Diabetes: Yes Patient Takes Glucophage: No Diminished Hearing: No Endocrine: Yes Gastrointestinal Disorders: Yes (Hep C) Genitourinary: No Hepatitis: Yes (HEP C) Hypertension: Yes Immune Disorder: No Musculoskeletal: Yes (BULGING DISC, Spinal stenosis) Neurologic: No Psychiatric: Yes Reproductive: No Respiratory: Yes Immunizations Current: Yes Radiation Therapy: No Sleep Apnea: No Thyroid Disease: No Ulcer: Yes Tetanus Vaccination: Unknown Influenza Vaccination: No Tubal Ligation: Yes Past Surgical History Abdominal Surgery: Yes (BANDS ON INTESTINES) Cardiac Surgery: Yes Other Surgery: No Social History Alcohol Use: No Tobacco Use: No Substance Use: No Allergies-Medications (Allergen,Severity, Reaction): Coded Allergies: Latex (Verified Allergy, Severe, rash and swelling, 08/27/16) Metformin (Verified Allergy, Severe, 08/27/16) Motrin (Verified Allergy, Severe, 08/27/16) Tylenol (Verified Allergy, Severe, Nausea/Vomiting, 08/27/16) Reported Meds & Prescriptions Reported Meds & Active Scripts Active Medical Compression Elastic Stockings 1 Mis Mis 1 Ea .ROUTE DIRECTED Ventolin Hfa 18 GM Inh (Albuterol Sulfate) 90 Mcg/Act Aer 2 Puff INH Q4H PRN Pantoprazole (Pantoprazole Sodium) 40 Mg Tab 40 Mg PO DAILY Metoprolol Tartrate 25 Mg Tab 12.5 Mg PO Q12HR Review of Systems Except as stated in HPI: all other systems reviewed are Neg Physical Exam Narrative GENERAL: WD/WN morbidly obese in NAD. Sleeping soundly on my initial evaluation. SKIN: Warm and dry. HEAD: Atraumatic. Normocephalic. EYES: Pupils equal and round. No scleral icterus. No injection or drainage. ENT: No nasal bleeding or discharge. Mucous membranes pink and moist. NECK: Trachea midline. No JVD. CARDIOVASCULAR: Regular rate and rhythm. RESPIRATORY: No accessory muscle use. Clear to auscultation. Breath sounds equal bilaterally. GASTROINTESTINAL: Abdomen soft, non-tender, nondistended. Hepatic and splenic margins not palpable. MUSCULOSKELETAL: Extremities without clubbing, cyanosis, 1+ edema of bilateral lower extremities. No obvious deformities. Bilateral knees have no bony tenderness, no laxity, no effusion. Compartments soft. NEUROLOGICAL: Awake and alert. No obvious cranial nerve deficits. Motor grossly within normal limits. Five out of 5 muscle strength in the arms and legs. Normal speech. PSYCHIATRIC: Appropriate mood and affect; insight and judgment normal. Data Data Last Documented VS Vital Signs Date Time Temp Pulse Resp B/P Pulse Ox O2 Delivery O2 Flow Rate FiO2 08/27/16 18:46 82 16 99 Room Air 08/27/16 18:46 150/70 08/27/16 16:18 98.5 Orders Tramadol (Ultram) (08/27/16 19:15) Oxycodone (Roxicodone) (08/27/16 19:30) MDM Medical Decision Making Medical Screen Exam Complete: Yes Emergency Medical Condition: Yes Differential Diagnosis Chronic LE edema, Chronic cirrhosis, peripheral vascular disease, osteoarthritis. Narrative Course Patient with multiple ED complaints for similiar. Today symptoms consistent with osteoarthritis. THroughout this week has had multiple complete workups in the ED. US dvt has been negative. There is no indication for further workup in the ED at this time. SHe is stable for discharge. DIscussed following up with her PCP and try to get an earlier appointment to establish. ALso suggested contacting a paint stock clerk. Discussed the ED cannot treat her chronic pain. Diagnosis Primary Impression: Chronic knee pain Qualified Code: M25.561 - Chronic pain of right knee Disposition: DISCHARGE HOME Condition: Stable Haroldo Cotto MD Aug 27, 2016 19:08
[2016-08-27] MEDS ORDERED: traMADol HCL 50 MG TAB PO ONE (19:15)
[2016-09-04] MEDS ORDERED: VITACAP7 PO (10:16)
[2016-09-04] MEDS ORDERED: FURO1TAB62 PO (10:16)
[2016-09-04] MEDS ORDERED: POTA10CA PO (10:16)
[2016-09-04] MEDS ORDERED: CLAR10CA3 PO (10:16)
[2016-09-04] MEDS ORDERED: LANTUS2P SQ (10:16)
[2016-09-04] MEDS ORDERED: BENA25TA3 PO (10:16)
[2016-09-04] MEDS ORDERED: DIAZ10TA PO (10:16)
== END 2016-08-27 19:45 | disposition home or self-care (01) ==
LOC: NEPA 16:17
DX: G89.29 Other chronic pain (principal); M25.561 Pain in right knee; M79.89 Other specified soft tissue disorders; J45.909 Unspecified asthma, uncomplicated; I10 Essential (primary) hypertension; E11.9 Type 2 diabetes mellitus without complications
CPT/HCPCS: 99284

== ENCOUNTER 2016-08-28 22:43 | Emergency (ER) | payer OTHER ==
[~2016-08-28] VITALS: Ht 160 cm; Wt 109.0 kg
[2016-08-28 22:45] VITALS: BP 187/86; PULSE 103; RESP 20; TEMP 98.1; O2SAT 96
[2016-08-29] MEDS ORDERED: CYCL1TAB29 PO ×2 (00:19→02:05)
--- NOTE | 2016-08-29 00:24 | PD ---
HPI Chief Complaint: Back/ Neck Pain or Injury Time Seen by Provider: 00:18 Travel History International Travel<30 days: No Contact w/Intl Traveler<30days: No Traveled to known affect area: No History of Present Illness HPI This is a 56-year-old female with a history of chronic back pain, "bulging disks ," hepatitis C, diabetes who presents for evaluation of chronic neck pain. She reports that she has chronic neck pain, worse today, which prompted evaluation. She denies any trauma to the neck. No chest pain, shortness of breath. She is not currently using any medication for symptom relief. Patient reports that in the past she was prescribed Percocet. She says that she is allergic to Tylenol, Motrin. She says that she just moved here from [place] in May of last year and does not currently have a primary care physician. This is the patient's sixth visit to this emergency Department this month for various complaints. PFSH Past Medical History Asthma: Yes Anxiety: Yes Depression: Yes Heart Rhythm Problems: No Cancer: No Cardiovascular Problems: Yes (HTN) High Cholesterol: No Chemotherapy: No Chest Pain: Yes Congestive Heart Failure: No COPD: No Diabetes: Yes Patient Takes Glucophage: No Diminished Hearing: No Endocrine: Yes Gastrointestinal Disorders: Yes (Hep C) Genitourinary: No Hepatitis: Yes (HEP C) Hypertension: Yes Immune Disorder: No Musculoskeletal: Yes (BULGING DISC, Spinal stenosis) Neurologic: No Psychiatric: Yes Reproductive: No Respiratory: Yes Immunizations Current: Yes Radiation Therapy: No Sleep Apnea: No Thyroid Disease: No Ulcer: Yes Tubal Ligation: Yes Past Surgical History Abdominal Surgery: Yes (BANDS ON INTESTINES) Cardiac Surgery: Yes Other Surgery: No Social History Alcohol Use: No Tobacco Use: No Substance Use: No Allergies-Medications (Allergen,Severity, Reaction): Coded Allergies: Latex (Verified Allergy, Severe, rash and swelling, 08/28/16) Metformin (Verified Allergy, Severe, 08/28/16) Motrin (Verified Allergy, Severe, 08/28/16) Tylenol (Verified Allergy, Severe, Nausea/Vomiting, 08/28/16) Reported Meds & Prescriptions Reported Meds & Active Scripts Active Flexeril (Cyclobenzaprine HCl) 10 Mg Tab 10 Mg PO TID 10 Days Medical Compression Elastic Stockings 1 Mis Mis 1 Ea .ROUTE DIRECTED Ventolin Hfa 18 GM Inh (Albuterol Sulfate) 90 Mcg/Act Aer 2 Puff INH Q4H PRN Pantoprazole (Pantoprazole Sodium) 40 Mg Tab 40 Mg PO DAILY Metoprolol Tartrate 25 Mg Tab 12.5 Mg PO Q12HR Review of Systems Except as stated in HPI: all other systems reviewed are Neg Physical Exam Narrative GENERAL: This is a well-developed well-nourished female who is in no acute distress. SKIN: Warm and dry. HEAD: Atraumatic. Normocephalic. EYES: Pupils equal and round. No scleral icterus. No injection or drainage. ENT: No nasal bleeding or discharge. Mucous membranes pink and moist. NECK: Trachea midline. No JVD. CARDIOVASCULAR: Regular rate and rhythm. No murmur appreciated. RESPIRATORY: No accessory muscle use. Clear to auscultation. Breath sounds equal bilaterally. MUSCULOSKELETAL: No obvious deformities. Generalized tenderness to palpation to the cervical paravertebral musculature. Full spontaneous use of the upper and lower extremities is noted. The patient ambulates with a cane. NEUROLOGICAL: Awake and alert. No obvious cranial nerve deficits. Motor grossly within normal limits. Normal speech. Data Data Last Documented VS Vital Signs Date Time Temp Pulse Resp B/P Pulse Ox O2 Delivery O2 Flow Rate FiO2 08/28/16 22:45 98.1 103 20 187/86 96 Room Air Orders Cyclobenzaprine (Flexeril) (08/29/16 00:30) MDM Medical Decision Making Medical Screen Exam Complete: Yes Emergency Medical Condition: Yes Medical Record Reviewed: Yes Differential Diagnosis Chronic neck pain, degenerative disc disease, herniated nucleus pulposus, spinal stenosis, muscle spasm, atypical acute coronary syndrome, carotid artery dissection Narrative Course 56-year-old female with history of chronic neck pain, hepatitis, diabetes presents for evaluation of an acute exacerbation of her chronic neck pain. There was no trauma. Physical examination is revealing of generalized tenderness to palpation to the cervical paravertebral musculature. Per chart review this is the sixth visit that this patient has had for various complaints to this emergency Department this month. During several of her visit she received morphine and oxycodone. Unfortunately this patient seems to have allergies to common analgesics such as Tylenol, Motrin. I discussed tramadol but she says that she can't take tramadol either. Ideally this patient with benefit from follow-up with a automotive paint technician. I don't feel that prescription opiates would be warranted in this situation as there was no acute injury that would benefit from a short term course of opiates. The patient has had some degree of success in the past with Flexeril. Therefore she is being discharged with Flexeril. The patient requested to see my attending physician and therefore Dr. Mack came and evaluated the patient as well. Diagnosis Primary Impression: Neck pain, chronic Additional Instructions: Flexeril as needed. Try warm compresses several times a day. Ideally follow up with a automotive paint technician would be warranted. Return for any emergent medical conditions. Med/Other Pt SpecificInfo: Prescription(s) given Scripts Cyclobenzaprine (Flexeril)10 Mg Tab10 Mg PO TID 10 Days Ref 0 Prov:Che Mack MD 08/29/16 Disposition: 01 DISCHARGE HOME Condition: Stable Bhavesh Lora Aug 29, 2016 00:24
[2016-08-29] MEDS ORDERED: CYCLOBENZAPRINE HCL 10 MG TAB PO ONE (00:30)
--- NOTE | 2016-08-29 02:10 | PD ---
Physical Exam Date Seen by Provider: Aug 29, 2016 Narrative I was asked to see this patient in fast track. She was requesting to see a doctor. She was unhappy that she did not receive narcotics tonight. Data Data Last Documented VS Vital Signs Date Time Temp Pulse Resp B/P Pulse Ox O2 Delivery O2 Flow Rate FiO2 08/28/16 22:45 98.1 103 20 187/86 96 Room Air Orders Cyclobenzaprine (Flexeril) (08/29/16 00:30) [facility] Supervised Visit with RAÚL: Yes Narrative Course Patient presents with chronic neck and back pain. She states that she normally comes in and is given Percocet and morphine for same. She was unhappy when the PA did not give that to her tonight. She reports no injury. She is not running a fever. She does not describe any of her symptoms are bowel/bladder incontinence. On my exam, she is moving gingerly. She complains of diffuse tenderness in the back. No point tenderness. I have reviewed her medical record. This is her eighth visit to the emergency department since June 20. She has received oxycodone and morphine twice here. She has had oxycodone alone twice more. She has never been given a prescription for an opiate. She states that we have been giving her Tylenol and that she is allergic to Tylenol. However, she was given oxycodone without acetaminophen when she was here. Nonetheless, it looks like she has been told recently that we will not be prescribing opiates for her here. However, she remains quite persistent in her request for opiates. Diagnosis Primary Impression: Neck pain, chronic Patient Instructions: General Instructions, Chronic Neck Pain (GEN) Departure Forms: Tests/Procedures Additional Instruction: Flexeril as needed. Try warm compresses several times a day. Ideally follow up with a chest painting and sealing supervisor would be warranted. Return for any emergent medical conditions. Scripts Cyclobenzaprine (Flexeril)10 Mg Tab10 Mg PO TID 10 Days Ref 0 Prov:Don Camilo MD 08/29/16 Disposition: 01 DISCHARGE HOME Condition: Stable Che Mack MD Aug 29, 2016 02:10
[2016-09-04] MEDS ORDERED: FURO1TAB62 PO (10:16)
[2016-09-04] MEDS ORDERED: VITACAP7 PO (10:16)
[2016-09-04] MEDS ORDERED: LANTUS2P SQ (10:16)
[2016-09-04] MEDS ORDERED: POTA10CA PO (10:16)
[2016-09-04] MEDS ORDERED: CLAR10CA3 PO (10:16)
[2016-09-04] MEDS ORDERED: DIAZ10TA PO (10:16)
[2016-09-04] MEDS ORDERED: BENA25TA3 PO (10:16)
== END 2016-08-29 02:11 | disposition home or self-care (01) ==
LOC: NEPB 22:43
DX: M54.2 Cervicalgia (principal); G89.29 Other chronic pain; J45.909 Unspecified asthma, uncomplicated; I10 Essential (primary) hypertension; E11.9 Type 2 diabetes mellitus without complications; B19.20 Unspecified viral hepatitis C without hepatic coma; Z88.6 Allergy status to analgesic agent
CPT/HCPCS: 99283

== ENCOUNTER 2016-09-04 22:48 | Emergency (ER) | payer OTHER ==
[~2016-09-04 22:48] MED LIST changes: +BENA25TA3 PO; +CLAR10CA3 PO; +CYCL1TAB29 PO; +DIAZ10TA PO; +FURO1TAB62 PO; +LANTUS2P SQ; +POTA10CA PO; +VITACAP7 PO
[2016-09-04 22:52] VITALS: BP 221/115; PULSE 76; RESP 18; TEMP 97.7; O2SAT 98
--- NOTE | 2016-09-05 00:28 | PD ---
HPI Chief Complaint: Hypertension Time Seen by Provider: 00:12 Travel History International Travel<30 days: No Contact w/Intl Traveler<30days: No Traveled to known affect area: No History of Present Illness HPI 56 year-old woman presents emergency Department with chronic neck and back pain , and today she states "I couldn't barely". She is also worried that when her pain gets worse her blood pressure goes up. She does not taking her blood pressure medications. She states she saw a physician today. States she has hepatitis and was told she cannot take Tylenol or NSAIDs. She's been taking Flexeril but doesn't really help. History Past Medical History Narrative Medical Chronic neck and back pain/bulging disc Hypertension Hepatitis C Asthma Diabetes Influenza Vaccination: No Social History Alcohol Use: No Tobacco Use: No Allergies-Medications (Allergen,Severity, Reaction): Coded Allergies: Latex (Verified Allergy, Severe, rash and swelling, 09/04/16) Metformin (Verified Allergy, Severe, 09/04/16) Motrin (Verified Allergy, Severe, 09/04/16) Tylenol (Verified Allergy, Severe, Nausea/Vomiting, 09/04/16) Reported Meds & Prescriptions Reported Meds & Active Scripts Active Ventolin Hfa 18 GM Inh (Albuterol Sulfate) 90 Mcg/Act Aer 2 Puff INH Q4H PRN Metoprolol Tartrate 25 Mg Tab 12.5 Mg PO Q12HR Reported Benadryl Allergy (Diphenhydramine HCl) 25 Mg Tab 50 Mg PO HS PRN B Complex (B-Complex Vitamins) 1 Cap 1 Cap PO DAILY Review of Systems Except as stated in HPI: all other systems reviewed are Neg Physical Exam Narrative GENERAL: 56 year-old woman, no acute distress. SKIN: Warm and dry. HEAD: Atraumatic. Normocephalic. EYES: Pupils equal and round. No scleral icterus. No injection or drainage. ENT: No nasal bleeding or discharge. Mucous membranes pink and moist. NECK: Trachea midline. No JVD. Mild paraspinous muscle tenderness. CARDIOVASCULAR: Regular rate and rhythm. No murmur appreciated. RESPIRATORY: No accessory muscle use. Clear to auscultation. Breath sounds equal bilaterally. GASTROINTESTINAL: Abdomen soft, non-tender, nondistended. Hepatic and splenic margins not palpable. MUSCULOSKELETAL: No obvious deformities. NEUROLOGICAL: Awake and alert. No obvious cranial nerve deficits. Motor grossly within normal limits. Normal speech. Data Data Last Documented VS Vital Signs Date Time Temp Pulse Resp B/P Pulse Ox O2 Delivery O2 Flow Rate FiO2 09/04/16 22:52 97.7 76 18 221/115 98 Room Air Orders Ketorolac Inj (Toradol Inj) (09/05/16 00:30) MDM Medical Decision Making Medical Screen Exam Complete: Yes Emergency Medical Condition: Yes Differential Diagnosis Acute chronic neck pain, strain or sprain, degenerative disc disease, other Narrative Course Medical decision making 48-year-old woman with acute on chronic neck pain. Recommend continue Flexeril. Could consider short course of NSAIDs. Diagnosis Primary Impression: Chronic back pain Additional Instructions: Continue Flexeril. Follow-up with her primary doctor in the next 2-4 days. Return to the emergency department for any new or worsening symptoms. Disposition: 01 DISCHARGE HOME Condition: Stable Vinh Ford MD Sep 05, 2016 00:28
[2016-09-05] MEDS ORDERED: KETOROLAC TROMETHAMINE 30 MG/ML (IVP) VIAL IVP ONE (00:30)
[2016-09-05 00:48] VITALS: BP 195/83
== END 2016-09-05 01:20 | disposition home or self-care (01) ==
LOC: NEPE 22:48
DX: M54.9 Dorsalgia, unspecified (principal); G89.29 Other chronic pain; M54.2 Cervicalgia; I10 Essential (primary) hypertension; J45.909 Unspecified asthma, uncomplicated; E11.9 Type 2 diabetes mellitus without complications
CPT/HCPCS: 96374; 99283; J1885

== ENCOUNTER 2016-09-23 16:39 | Emergency (ER) | payer OTHER ==
[~2016-09-23] VITALS: Ht 157.5 cm; Wt 114.0 kg
[~2016-09-23 16:39] MED LIST changes: -CLAR10CA3 PO; -CYCL1TAB29 PO; -DIAZ10TA PO; -FURO1TAB62 PO; -LANTUS2P SQ; -MEDICAL COMPRES1 MIS; -PANT40TA3 PO; -POTA10CA PO
[2016-09-23 16:41] VITALS: BP 202/88; PULSE 77; RESP 14; TEMP 98; O2SAT 99
--- NOTE | 2016-09-23 18:00 | PD ---
HPI Chief Complaint: Edema Time Seen by Provider: 17:57 Travel History International Travel<30 days: No Contact w/Intl Traveler<30days: No Traveled to known affect area: No History of Present Illness HPI Patient is a 56-year-old female presenting to the emergency department for evaluation of bilateral leg pain. Patient states the pain starts in her hip and radiates down it also starts in her feet and radiates up meeting at her knees causing a "shooting pain". Patient has been seen in the emergency department several times over the last 2 months for various complaints. Patient states the pain started today, she has a history of the same, she states it happens 2-3 times a month. She denies any other complaints at this time. She does state that she was on Lasix previously but is only taking metoprolol now, she stated that "no one refilled it". She reports the pain is 7 out of 10. She states that she has an allergy to ibuprofen due to GI side effects and Tylenol due to her cirrhosis/hepatitis C. She denies any shortness of breath, chest pain. PFSH Past Medical History Asthma: Yes Anxiety: Yes Depression: Yes Heart Rhythm Problems: No Cancer: No Cardiovascular Problems: Yes (CAD HTN) High Cholesterol: No Chemotherapy: No Chest Pain: Yes Congestive Heart Failure: No COPD: No Diabetes: Yes Diminished Hearing: No Endocrine: Yes Gastrointestinal Disorders: Yes (Hep C, esophageal varices) Genitourinary: No Hepatitis: Yes (HEP C) Hypertension: Yes Immune Disorder: No Musculoskeletal: Yes (BULGING DISC, Spinal stenosis) Neurologic: No Psychiatric: Yes Reproductive: No Respiratory: Yes (COPD) Immunizations Current: Yes Radiation Therapy: No Sleep Apnea: No Thyroid Disease: No Ulcer: Yes Tubal Ligation: Yes Past Surgical History Abdominal Surgery: Yes (BANDS ON INTESTINES) Cardiac Surgery: Yes Other Surgery: No Social History Alcohol Use: No Tobacco Use: No Substance Use: No Allergies-Medications (Allergen,Severity, Reaction): Coded Allergies: Latex (Verified Allergy, Severe, rash and swelling, 09/04/16) Metformin (Verified Allergy, Severe, 09/04/16) Motrin (Verified Allergy, Severe, 09/04/16) Tylenol (Verified Allergy, Severe, Nausea/Vomiting, 09/04/16) Reported Meds & Prescriptions Reported Meds & Active Scripts Active Tramadol (Tramadol HCl) 50 Mg Tab 50 Mg PO Q6H PRN Furosemide 20 Mg Tab 20 Mg PO DAILY Ventolin Hfa 18 GM Inh (Albuterol Sulfate) 90 Mcg/Act Aer 2 Puff INH Q4H PRN Metoprolol Tartrate 25 Mg Tab 12.5 Mg PO Q12HR Reported Benadryl Allergy (Diphenhydramine HCl) 25 Mg Tab 50 Mg PO HS PRN B Complex (B-Complex Vitamins) 1 Cap 1 Cap PO DAILY Review of Systems Except as stated in HPI: all other systems reviewed are Neg Musculoskeletal: Positive: Cramping, Edema, Pain Physical Exam Narrative GENERAL: Normally obese, well-developed, alert female. Resting comfortably in no acute distress. SKIN: Warm and dry. HEAD: Atraumatic. Normocephalic. EYES: Pupils equal and round. No scleral icterus. No injection or drainage. ENT: No nasal bleeding or discharge. Mucous membranes pink and moist. NECK: Trachea midline. No JVD. CARDIOVASCULAR: Regular rate and rhythm. No murmur appreciated. RESPIRATORY: No accessory muscle use. Clear to auscultation. Breath sounds equal bilaterally. GASTROINTESTINAL: Abdomen soft, non-tender, nondistended. Hepatic and splenic margins not palpable. MUSCULOSKELETAL: No obvious deformities. No clubbing. No cyanosis. 2+ edema to bilateral lower extremities, diminished pedal pulses. 5/5 muscle strength in bilateral lower extremities. NEUROLOGICAL: Awake and alert. No obvious cranial nerve deficits. Motor grossly within normal limits. Normal speech. PSYCHIATRIC: Appropriate mood and affect; insight and judgment normal. Data Data Last Documented VS Vital Signs Date Time Temp Pulse Resp B/P Pulse Ox O2 Delivery O2 Flow Rate FiO2 09/23/16 20:35 82 189/81 100 09/23/16 18:21 16 09/23/16 16:41 98.0 Room Air Orders Complete Blood Count With Diff (09/23/16 17:55) Comprehensive Metabolic Panel (09/23/16 17:55) B-Type Natriuretic Peptide (09/23/16 17:55) Magnesium (Mg) (09/23/16 17:55) Furosemide (Lasix) (09/23/16 21:45) Tramadol (Ultram) (09/23/16 21:45) Labs Laboratory Tests Test 09/23/16 18:15 White Blood Count 5.2 TH/MM3 Red Blood Count 4.16 MIL/MM3 Hemoglobin 12.3 GM/DL Hematocrit 37.6 % Mean Corpuscular Volume 90.3 FL Mean Corpuscular Hemoglobin 29.6 PG Mean Corpuscular Hemoglobin 32.7 % Concent Red Cell Distribution Width 14.4 % Platelet Count 97 TH/MM3 Mean Platelet Volume 10.4 FL Neutrophils (%) (Auto) 41.9 % Lymphocytes (%) (Auto) 41.6 % Monocytes (%) (Auto) 12.9 % Eosinophils (%) (Auto) 3.2 % Basophils (%) (Auto) 0.4 % Neutrophils # (Auto) 2.2 TH/MM3 Lymphocytes # (Auto) 2.2 TH/MM3 Monocytes # (Auto) 0.7 TH/MM3 Eosinophils # (Auto) 0.2 TH/MM3 Basophils # (Auto) 0.0 TH/MM3 CBC Comment AUTO DIFF Differential Comment AUTO DIFF CONFIRMED Platelet Estimate LOW Platelet Morphology Comment NORMAL Red Cell Morphology Comment NORMAL Sodium Level 140 MEQ/L Potassium Level 4.3 MEQ/L Chloride Level 109 MEQ/L Carbon Dioxide Level 26.9 MEQ/L Anion Gap 4 MEQ/L Blood Urea Nitrogen 12 MG/DL Creatinine 0.59 MG/DL Estimat Glomerular Filtration 127 ML/MIN Rate Random Glucose 84 MG/DL Calcium Level 8.4 MG/DL Magnesium Level 1.9 MG/DL Total Bilirubin 2.1 MG/DL Aspartate Amino Transf 75 U/L (AST/SGOT) Alanine Aminotransferase 62 U/L (ALT/SGPT) Alkaline Phosphatase 221 U/L B-Type Natriuretic Peptide 59 PG/ML Total Protein 7.7 GM/DL Albumin 2.6 GM/DL [facility] Medical Decision Making Medical Screen Exam Complete: Yes Emergency Medical Condition: Yes Interpretation(s) Laboratory Tests Test 09/23/16 18:15 White Blood Count 5.2 TH/MM3 Red Blood Count 4.16 MIL/MM3 Hemoglobin 12.3 GM/DL Hematocrit 37.6 % Mean Corpuscular Volume 90.3 FL Mean Corpuscular Hemoglobin 29.6 PG Mean Corpuscular Hemoglobin 32.7 % Concent Red Cell Distribution Width 14.4 % Platelet Count 97 TH/MM3 Mean Platelet Volume 10.4 FL Neutrophils (%) (Auto) 41.9 % Lymphocytes (%) (Auto) 41.6 % Monocytes (%) (Auto) 12.9 % Eosinophils (%) (Auto) 3.2 % Basophils (%) (Auto) 0.4 % Neutrophils # (Auto) 2.2 TH/MM3 Lymphocytes # (Auto) 2.2 TH/MM3 Monocytes # (Auto) 0.7 TH/MM3 Eosinophils # (Auto) 0.2 TH/MM3 Basophils # (Auto) 0.0 TH/MM3 CBC Comment AUTO DIFF Differential Comment AUTO DIFF CONFIRMED Platelet Estimate LOW Platelet Morphology Comment NORMAL Red Cell Morphology Comment NORMAL Sodium Level 140 MEQ/L Potassium Level 4.3 MEQ/L Chloride Level 109 MEQ/L Carbon Dioxide Level 26.9 MEQ/L Anion Gap 4 MEQ/L Blood Urea Nitrogen 12 MG/DL Creatinine 0.59 MG/DL Estimat Glomerular Filtration 127 ML/MIN Rate Random Glucose 84 MG/DL Calcium Level 8.4 MG/DL Magnesium Level 1.9 MG/DL Total Bilirubin 2.1 MG/DL Aspartate Amino Transf 75 U/L (AST/SGOT) Alanine Aminotransferase 62 U/L (ALT/SGPT) Alkaline Phosphatase 221 U/L B-Type Natriuretic Peptide 59 PG/ML Total Protein 7.7 GM/DL Albumin 2.6 GM/DL Vital Signs Date Time Temp Pulse Resp B/P Pulse Ox O2 Delivery O2 Flow Rate FiO2 09/23/16 16:41 98.0 77 14 202/88 99 Room Air Differential Diagnosis Congestive heart failure versus peripheral edema versus electrolyte abnormality versus cirrhosis versus other Narrative Course Patient is a 56-year-old female presenting to emergency department for evaluation of bilateral lower extremity pain. She states pain is in both of her legs. Patient is neurologically intact, she is able to move her legs freely in the exam room. Labs ordered and pending. She is hypertensive, she reports taking her blood pressure medication consistently. Care patient will be transferred to provider in a medical bed when available. Scripts Tramadol 50 Mg Tab50 Mg PO Q6H PRN (PAIN) #20 TAB Prov:Ignacio Yip MD 09/23/16 Furosemide 20 Mg Tab20 Mg PO DAILY #30 TAB Ref 0 Prov:Ignacio Yip MD 09/23/16 Arin Kiser Sep 23, 2016 18:00
[2016-09-23 18:44] LABS: AUTOMATED NEUTROPHIL # 2.2 TH/MM3 (1.8-7.7); BASOPHIL % 0.4 % (0.0-2.0); EOSINOPHIL # 0.2 TH/MM3 (0-0.4); EOSINOPHIL % 3.2 % (0.0-4.0); HEMATOCRIT 37.6 % (35.0-46.0); LYMPH % 41.6 % (9.0-44.0); LYMPHOCYTE # 2.2 TH/MM3 (1.0-4.8); MEAN CELL VOLUME 90.3 FL (80.0-100.0); MEAN CORPUSCULAR HEMOGLOBIN 29.6 PG (27.0-34.0); MEAN CORPUSCULAR HGB CONC 32.7 % (32.0-36.0); MONO % 12.9 % (0.0-8.0); NEUT % 41.9 % (16.0-70.0); PLATELET COUNT 97 TH/MM3 (150-450); RED BLOOD COUNT 4.16 MIL/MM3 (4.00-5.30); RED CELL DISTRIBUTION WIDTH 14.4 % (11.6-17.2); WHITE BLOOD COUNT 5.2 TH/MM3 (4.0-11.0)
[2016-09-23 18:47] LABS: HEMO FLAGS AUTO DIFF
[2016-09-23 19:16] LABS: ALKALINE PHOSPHATASE 221 U/L (45-117); ALT (GPT) 62 U/L (10-53); ANION GAP 4 MEQ/L (5-15); AST (GOT) 75 U/L (15-37); BICARBONATE 26.9 MEQ/L (21.0-32.0); BLOOD UREA NITROGEN 12 MG/DL (7-18); CHLORIDE 109 MEQ/L (98-107); GLOMERULAR FILTRATION RATE 127 ML/MIN (>89); MAGNESIUM 1.9 MG/DL (1.5-2.5); SODIUM (NA) 140 MEQ/L (136-145); TOTAL BILIRUBIN ADULT 2.1 MG/DL (0.2-1.0)
[2016-09-23 19:17] LABS: POTASSIUM 4.3 MEQ/L (3.5-5.1)
[2016-09-23 19:47] LABS: PLATELET ESTIMATE SMEAR LOW (NORMAL); PLATELET MORPHOLOGY NORMAL (NORMAL); SCAN/DIFF AUTO DIFF CONFIRMED
[2016-09-23 20:35] VITALS: BP 189/81; PULSE 82; O2SAT 100
--- NOTE | 2016-09-23 21:43 | PD ---
HPI Chief Complaint: Edema Time Seen by Provider: 21:41 Travel History International Travel<30 days: No Contact w/Intl Traveler<30days: No Traveled to known affect area: No History of Present Illness HPI 56-year-old Afro-[place] female who was seen at triage for lower extremity edema and bilateral lower extremity pain. Patient was evaluated in triage by Tricia OLSEN, history physical exam were all performed at that time. Please see her note. Labs were ordered. These were reviewed by myself. Patient is allergic to latex, metformin, Motrin, and Tylenol. Patient has a history of hepatitis C. PFSH Past Medical History Asthma: Yes Anxiety: Yes Depression: Yes Heart Rhythm Problems: No Cancer: No Cardiovascular Problems: Yes (CAD HTN) High Cholesterol: No Chemotherapy: No Chest Pain: Yes Congestive Heart Failure: No COPD: No Diabetes: Yes Patient Takes Glucophage: No Diminished Hearing: No Endocrine: Yes Gastrointestinal Disorders: Yes (Hep C, esophageal varices) Genitourinary: No Hepatitis: Yes (HEP C) Hypertension: Yes Immune Disorder: No Musculoskeletal: Yes (BULGING DISC, Spinal stenosis) Neurologic: No Psychiatric: Yes Reproductive: No Respiratory: Yes (COPD) Immunizations Current: Yes Radiation Therapy: No Sleep Apnea: No Thyroid Disease: No Ulcer: Yes Tetanus Vaccination: Unknown Influenza Vaccination: No Tubal Ligation: Yes Past Surgical History Abdominal Surgery: Yes (BANDS ON INTESTINES) Cardiac Surgery: Yes Other Surgery: No Social History Alcohol Use: No Tobacco Use: No Substance Use: No Allergies-Medications (Allergen,Severity, Reaction): Coded Allergies: Latex (Verified Allergy, Severe, rash and swelling, 09/04/16) Metformin (Verified Allergy, Severe, 09/04/16) Motrin (Verified Allergy, Severe, 09/04/16) Tylenol (Verified Allergy, Severe, Nausea/Vomiting, 09/04/16) Reported Meds & Prescriptions Reported Meds & Active Scripts Active Ventolin Hfa 18 GM Inh (Albuterol Sulfate) 90 Mcg/Act Aer 2 Puff INH Q4H PRN Metoprolol Tartrate 25 Mg Tab 12.5 Mg PO Q12HR Reported Benadryl Allergy (Diphenhydramine HCl) 25 Mg Tab 50 Mg PO HS PRN B Complex (B-Complex Vitamins) 1 Cap 1 Cap PO DAILY Review of Systems Except as stated in HPI: all other systems reviewed are Neg General / Constitutional: No: Fever Eyes: No: Visual changes HENT: No: Headaches Cardiovascular: No: Chest Pain or Discomfort Respiratory: No: Shortness of Breath Gastrointestinal: No: Abdominal Pain Genitourinary: No: Dysuria Musculoskeletal: Positive: Myalgias, Edema, No: Pain Skin: No Rash Neurologic: No: Weakness Psychiatric: No: Depression Endocrine: No: Polydipsia Hematologic/Lymphatic: No: Easy Bruising Physical Exam Narrative See history and physical by Arin OLSEN. Data Data Last Documented VS Vital Signs Date Time Temp Pulse Resp B/P Pulse Ox O2 Delivery O2 Flow Rate FiO2 09/23/16 20:35 82 189/81 100 09/23/16 18:21 16 09/23/16 16:41 98.0 Room Air Orders Complete Blood Count With Diff (09/23/16 17:55) Comprehensive Metabolic Panel (09/23/16 17:55) B-Type Natriuretic Peptide (09/23/16 17:55) Magnesium (Mg) (09/23/16 17:55) Furosemide (Lasix) (09/23/16 21:45) Tramadol (Ultram) (09/23/16 21:45) Labs Laboratory Tests Test 09/23/16 18:15 White Blood Count 5.2 TH/MM3 Red Blood Count 4.16 MIL/MM3 Hemoglobin 12.3 GM/DL Hematocrit 37.6 % Mean Corpuscular Volume 90.3 FL Mean Corpuscular Hemoglobin 29.6 PG Mean Corpuscular Hemoglobin 32.7 % Concent Red Cell Distribution Width 14.4 % Platelet Count 97 TH/MM3 Mean Platelet Volume 10.4 FL Neutrophils (%) (Auto) 41.9 % Lymphocytes (%) (Auto) 41.6 % Monocytes (%) (Auto) 12.9 % Eosinophils (%) (Auto) 3.2 % Basophils (%) (Auto) 0.4 % Neutrophils # (Auto) 2.2 TH/MM3 Lymphocytes # (Auto) 2.2 TH/MM3 Monocytes # (Auto) 0.7 TH/MM3 Eosinophils # (Auto) 0.2 TH/MM3 Basophils # (Auto) 0.0 TH/MM3 CBC Comment AUTO DIFF Differential Comment AUTO DIFF CONFIRMED Platelet Estimate LOW Platelet Morphology Comment NORMAL Red Cell Morphology Comment NORMAL Sodium Level 140 MEQ/L Potassium Level 4.3 MEQ/L Chloride Level 109 MEQ/L Carbon Dioxide Level 26.9 MEQ/L Anion Gap 4 MEQ/L Blood Urea Nitrogen 12 MG/DL Creatinine 0.59 MG/DL Estimat Glomerular Filtration 127 ML/MIN Rate Random Glucose 84 MG/DL Calcium Level 8.4 MG/DL Magnesium Level 1.9 MG/DL Total Bilirubin 2.1 MG/DL Aspartate Amino Transf 75 U/L (AST/SGOT) Alanine Aminotransferase 62 U/L (ALT/SGPT) Alkaline Phosphatase 221 U/L B-Type Natriuretic Peptide 59 PG/ML Total Protein 7.7 GM/DL Albumin 2.6 GM/DL [facility] Medical Decision Making Medical Screen Exam Complete: Yes Emergency Medical Condition: Yes Differential Diagnosis Lower extremity edema. Lower extremity pain. Hypertension. Narrative Course Patient is evaluated felt to be medically stable at time of exam. Recent lower extremity ultrasounds were negative at the end of August. Patient is discussed with Dr. Yip, who feels the patient is stable for discharge based on her lab work and exam. Patient is given Lasix 40 mg by mouth as well as tramadol 50 mg by mouth here in the department. Patient is discharged home on Lasix 20 mg daily #20. Patient is also given tramadol 50 mg one every 6 hours when necessary pain #20. Patient is referred to the women's clinic for further evaluation and establishment of primary care. Patient can return to the department if symptoms worsen as discussed. Diagnosis Primary Impression: Lower extremity edema Qualified Code: R60.0 - Bilateral edema of lower extremity Additional Impression: Chronic leg pain Qualified Code: M79.604 - Chronic pain of both lower extremities [facility] call for appointment Patient Instructions: General Instructions Additional Instructions: Patient is given Lasix 40 mg by mouth as well as tramadol 50 mg by mouth here in the department. Patient is discharged home on Lasix 20 mg daily #20. Patient is also given tramadol 50 mg one every 6 hours when necessary pain #20. Patient is referred to the women's clinic for further evaluation and establishment of primary care. Patient can return to the department if symptoms worsen as discussed. Med/Other Pt SpecificInfo: Prescription(s) given Disposition: DISCHARGE HOME Condition: Stable Raf Paul Sep 23, 2016 21:43
[2016-09-23] MEDS ORDERED: traMADol HCL 50 MG TAB PO ONE (21:45)
[2016-09-23] MEDS ORDERED: FUROSEMIDE 40 MG TAB PO ONE (21:45)
[2016-09-23] MEDS ORDERED: TRAM50TA PO (22:12)
[2016-09-23] MEDS ORDERED: FURO20TA PO (22:12)
== END 2016-09-23 22:36 | disposition home or self-care (01) ==
LOC: NEPA 16:39
DX: R60.0 Localized edema (principal); M79.604 Pain in right leg; M79.605 Pain in left leg; J45.909 Unspecified asthma, uncomplicated; I25.10 Atherosclerotic heart disease of native coronary artery without angina pectoris; I10 Essential (primary) hypertension; E11.9 Type 2 diabetes mellitus without complications; B19.20 Unspecified viral hepatitis C without hepatic coma; J44.9 Chronic obstructive pulmonary disease, unspecified
CPT/HCPCS: 80053; 83735; 83880; 85025; 99283

== ENCOUNTER 2016-10-02 14:54 | Emergency (ER) | payer OTHER ==
[~2016-10-02] VITALS: Ht 160 cm; Wt 113.0 kg
[~2016-10-02 14:54] MED LIST changes: +FURO20TA PO; +TRAM50TA PO
[2016-10-02 14:55] VITALS: BP 225/96; PULSE 90; RESP 18; TEMP 97.7; O2SAT 97
[2016-10-02 15:02] VITALS: BP_SYST 185; BP_SYST 206; BP_DIAS 82; BP_DIAS 85; PULSE 84; RESP 20
[2016-10-02] MEDS ORDERED: SODIUM CHLORIDE 0.9% FLUSH 5 ML FLUSH IVF PRN (15:15)
[2016-10-02] MEDS ORDERED: cloNIDine HCL 0.2 MG TAB PO ONE (15:15)
[2016-10-02 15:18] VITALS: O2SAT 100
--- NOTE | 2016-10-02 15:20 | PD ---
HPI Chief Complaint: Chest Pain Time Seen by Provider: 15:06 Travel History International Travel<30 days: No Contact w/Intl Traveler<30days: No Traveled to known affect area: No History of Present Illness HPI The patient was seen and examined in the presence of the nurse. She complains of chest pain. She also complains of chronic pains in her legs. She's had this for months to years. Symptoms severity is moderate. No alleviating factors. Denies fever or shortness of breath. She did not take her blood pressure medications today. Blood pressure is 185 systolic PFSH Past Medical History Asthma: Yes Anxiety: Yes Depression: Yes Heart Rhythm Problems: No Cancer: No Cardiovascular Problems: Yes High Cholesterol: No Chemotherapy: No Chest Pain: Yes Congestive Heart Failure: No COPD: No Diabetes: Yes Diminished Hearing: No Endocrine: Yes Gastrointestinal Disorders: Yes (Hep C, esophageal varices) Genitourinary: No Hepatitis: Yes (HEP C) Hypertension: Yes Immune Disorder: No Musculoskeletal: Yes (BULGING DISC, Spinal stenosis) Neurologic: No Psychiatric: Yes Reproductive: No Respiratory: Yes (COPD) Immunizations Current: Yes Radiation Therapy: No Sleep Apnea: No Thyroid Disease: No Ulcer: Yes ?: Not Tubal Ligation: Yes Past Surgical History Abdominal Surgery: Yes (BANDS ON INTESTINES) Cardiac Surgery: Yes Other Surgery: No Social History Alcohol Use: No Tobacco Use: No Substance Use: No Allergies-Medications (Allergen,Severity, Reaction): Coded Allergies: Latex (Verified Allergy, Severe, rash and swelling, 10/02/16) Metformin (Verified Allergy, Severe, 10/02/16) Motrin (Verified Allergy, Severe, 10/02/16) Tylenol (Verified Allergy, Severe, Nausea/Vomiting, 10/02/16) Reported Meds & Prescriptions Reported Meds & Active Scripts Active Tramadol (Tramadol HCl) 50 Mg Tab 50 Mg PO Q6H PRN Furosemide 20 Mg Tab 20 Mg PO DAILY Ventolin Hfa 18 GM Inh (Albuterol Sulfate) 90 Mcg/Act Aer 2 Puff INH Q4H PRN Metoprolol Tartrate 25 Mg Tab 12.5 Mg PO Q12HR Reported Benadryl Allergy (Diphenhydramine HCl) 25 Mg Tab 50 Mg PO HS PRN B Complex (B-Complex Vitamins) 1 Cap 1 Cap PO DAILY Review of Systems General / Constitutional: No: Fever Eyes: No: Visual changes HENT: No: Headaches Cardiovascular: Positive: Chest Pain or Discomfort, Edema Respiratory: No: Shortness of Breath Gastrointestinal: No: Abdominal Pain Genitourinary: No: Dysuria Musculoskeletal: Positive: Edema, No: Pain Skin: No Rash Neurologic: No: Weakness Psychiatric: No: Depression Endocrine: No: Polydipsia Hematologic/Lymphatic: No: Easy Bruising Physical Exam Narrative GENERAL: Well-nourished, well-developed patient in no apparent distress. SKIN: Warm and dry. HEAD: Atraumatic. Normocephalic. EYES: Pupils equal and round. No scleral icterus. No injection or drainage. ENT: No nasal bleeding or discharge. Mucous membranes pink and moist. NECK: Trachea midline. No JVD. CARDIOVASCULAR: Regular rate and rhythm. No murmur appreciated. RESPIRATORY: No accessory muscle use. Clear to auscultation. Breath sounds equal bilaterally. GASTROINTESTINAL: Abdomen soft, non-tender, nondistended. Hepatic and splenic margins not palpable. MUSCULOSKELETAL: No obvious deformities. No clubbing. No cyanosis. Symmetric edema the feet and ankles and lower legs. Prominent and readily reproducible chest wall tenderness which replicates her pain complaints NEUROLOGICAL: Awake and alert. No obvious cranial nerve deficits. Motor grossly within normal limits. Normal speech. PSYCHIATRIC: Appropriate mood and affect; insight and judgment normal. Data Data Last Documented VS Vital Signs Date Time Temp Pulse Resp B/P Pulse Ox O2 Delivery O2 Flow Rate FiO2 10/02/16 15:37 74 18 158/77 97 Room Air 10/02/16 14:55 97.7 Orders Basic Metabolic Panel (Bmp) (10/02/16 15:14) Ckmb (Isoenzyme) Profile (10/02/16 15:14) Complete Blood Count With Diff (10/02/16 15:14) Troponin I (10/02/16 15:14) Ecg Monitoring (10/02/16 15:14) Iv Access Insert/Monitor (10/02/16 15:14) Oximetry (10/02/16 15:14) Sodium Chloride 0.9% Flush (Ns Flush) (10/02/16 15:15) Clonidine (Catapres) (10/02/16 15:15) Electrocardiogram (10/02/16 15:04) Labs Laboratory Tests Test 10/02/16 15:25 White Blood Count 4.6 TH/MM3 Red Blood Count 4.09 MIL/MM3 Hemoglobin 12.2 GM/DL Hematocrit 36.6 % Mean Corpuscular Volume 89.3 FL Mean Corpuscular Hemoglobin 29.8 PG Mean Corpuscular Hemoglobin 33.4 % Concent Red Cell Distribution Width 14.4 % Platelet Count 101 TH/MM3 Mean Platelet Volume 9.8 FL Neutrophils (%) (Auto) 43.2 % Lymphocytes (%) (Auto) 38.6 % Monocytes (%) (Auto) 14.1 % Eosinophils (%) (Auto) 3.6 % Basophils (%) (Auto) 0.5 % Neutrophils # (Auto) 2.0 TH/MM3 Lymphocytes # (Auto) 1.8 TH/MM3 Monocytes # (Auto) 0.6 TH/MM3 Eosinophils # (Auto) 0.2 TH/MM3 Basophils # (Auto) 0.0 TH/MM3 CBC Comment DIFF FINAL Differential Comment Sodium Level 143 MEQ/L Potassium Level 3.9 MEQ/L Chloride Level 108 MEQ/L Carbon Dioxide Level 27.3 MEQ/L Anion Gap 8 MEQ/L Blood Urea Nitrogen 9 MG/DL Creatinine 0.70 MG/DL Estimat Glomerular Filtration 104 ML/MIN Rate Random Glucose 111 MG/DL Calcium Level 8.4 MG/DL MDM Medical Decision Making Medical Screen Exam Complete: Yes Emergency Medical Condition: Yes Medical Record Reviewed: Yes Differential Diagnosis Differential diagnosis includes OK, angina, pericarditis, pleurisy, GERD, anxiety. Narrative Course I have reviewed the patient's electronic medical record. She is a very frequent visitor to the ER. This is her ninth visit this year already, mostly for pain complaints I gave her dose of clonidine for accelerated hypertension of 185 systolic CBC is normal Metabolic profile is normal CK is pending Troponin is pending but will be reviewed I reviewed her EKG which shows sinus rhythm but no ST elevation Extended cardiac monitoring reveals sinus rhythm without ectopy This patient is having musculoskeletal chest wall pain. Blood pressure is improved after clonidine Gave her tramadol dose No indication for further cardiac eval Diagnosis Primary Impression: Acute chest wall pain Additional Instructions: The patient was advised to follow up with their physician and return if they worsen. Med/Other Pt SpecificInfo: Other Disposition: 01 DISCHARGE HOME Condition: Stable Nino Hanson MD Oct 02, 2016 15:19
[2016-10-02 15:37] VITALS: BP 158/77; PULSE 74; RESP 18; O2SAT 97
[2016-10-02 15:45] LABS: BASOPHIL % 0.5 % (0.0-2.0); EOSINOPHIL # 0.2 TH/MM3 (0-0.4); EOSINOPHIL % 3.6 % (0.0-4.0); HEMATOCRIT 36.6 % (35.0-46.0); HEMO FLAGS DIFF FINAL; LYMPH % 38.6 % (9.0-44.0); LYMPHOCYTE # 1.8 TH/MM3 (1.0-4.8); MEAN CELL VOLUME 89.3 FL (80.0-100.0); MEAN CORPUSCULAR HEMOGLOBIN 29.8 PG (27.0-34.0); MEAN CORPUSCULAR HGB CONC 33.4 % (32.0-36.0); MONO % 14.1 % (0.0-8.0); NEUT % 43.2 % (16.0-70.0); PLATELET COUNT 101 TH/MM3 (150-450); RED BLOOD COUNT 4.09 MIL/MM3 (4.00-5.30); RED CELL DISTRIBUTION WIDTH 14.4 % (11.6-17.2); WHITE BLOOD COUNT 4.6 TH/MM3 (4.0-11.0)
[2016-10-02 16:14] LABS: ANION GAP 8 MEQ/L (5-15); BICARBONATE 27.3 MEQ/L (21.0-32.0); BLOOD UREA NITROGEN 9 MG/DL (7-18); CHLORIDE 108 MEQ/L (98-107); GLOMERULAR FILTRATION RATE 104 ML/MIN (>89); POTASSIUM 3.9 MEQ/L (3.5-5.1); SODIUM (NA) 143 MEQ/L (136-145)
[2016-10-02 17:12] LABS: CREATINE KINASE 299 U/L (26-192)
[2016-10-02] MEDS ORDERED: traMADol HCL 50 MG TAB PO ONE (17:15)
[2016-10-02 17:24] LABS: CKMB 4.3 NG/ML (0.5-3.6)
--- NOTE | 2016-10-02 17:45 | PD ---
Data Data Last Documented VS Vital Signs Date Time Temp Pulse Resp B/P Pulse Ox O2 Delivery O2 Flow Rate FiO2 10/02/16 15:37 74 18 158/77 97 Room Air 10/02/16 14:55 97.7 Orders Basic Metabolic Panel (Bmp) (10/02/16 15:14) Ckmb (Isoenzyme) Profile (10/02/16 15:14) Complete Blood Count With Diff (10/02/16 15:14) Troponin I (10/02/16 15:14) Ecg Monitoring (10/02/16 15:14) Iv Access Insert/Monitor (10/02/16 15:14) Oximetry (10/02/16 15:14) Sodium Chloride 0.9% Flush (Ns Flush) (10/02/16 15:15) Clonidine (Catapres) (10/02/16 15:15) Electrocardiogram (10/02/16 15:04) Tramadol (Ultram) (10/02/16 17:15) CKMB (10/02/16 15:25) CKMB% (10/02/16 15:25) Labs Laboratory Tests Test 10/02/16 15:25 White Blood Count 4.6 TH/MM3 Red Blood Count 4.09 MIL/MM3 Hemoglobin 12.2 GM/DL Hematocrit 36.6 % Mean Corpuscular Volume 89.3 FL Mean Corpuscular Hemoglobin 29.8 PG Mean Corpuscular Hemoglobin 33.4 % Concent Red Cell Distribution Width 14.4 % Platelet Count 101 TH/MM3 Mean Platelet Volume 9.8 FL Neutrophils (%) (Auto) 43.2 % Lymphocytes (%) (Auto) 38.6 % Monocytes (%) (Auto) 14.1 % Eosinophils (%) (Auto) 3.6 % Basophils (%) (Auto) 0.5 % Neutrophils # (Auto) 2.0 TH/MM3 Lymphocytes # (Auto) 1.8 TH/MM3 Monocytes # (Auto) 0.6 TH/MM3 Eosinophils # (Auto) 0.2 TH/MM3 Basophils # (Auto) 0.0 TH/MM3 CBC Comment DIFF FINAL Differential Comment Sodium Level 143 MEQ/L Potassium Level 3.9 MEQ/L Chloride Level 108 MEQ/L Carbon Dioxide Level 27.3 MEQ/L Anion Gap 8 MEQ/L Blood Urea Nitrogen 9 MG/DL Creatinine 0.70 MG/DL Estimat Glomerular Filtration 104 ML/MIN Rate Random Glucose 111 MG/DL Calcium Level 8.4 MG/DL Total Creatine Kinase 299 U/L Creatine Kinase MB 4.3 NG/ML Creatine Kinase MB % 1.4 % Troponin I LESS THAN 0.02 NG/ML [facility] Supervised Visit with RAÚL: No Interpretation(s) EKG shows normal sinus rhythm with left axis deviation normal R-wave progression. No concerning ST T changes. Left atrial enlargement. This is an abnormal EKG. No change from 08/10/2016. Narrative Course Patient care assumed from Dr. Dejesus at 1700. Patient is well-known to me from previous ER visits last month. She has a highly atypical chest pain on the right side radiating down her entire body. Her chief complaint to me is actually that her chronic leg pain has flared on her and it causes her blood pressure to go up. Patient states that she has yet unable to establish with a primary care physician and has no funding to do so. She has been evaluated by case management multiple times here for possible patient assistance and has been denied. She has been denied total disability. She does not have health insurance and does not qualify for Medicaid either. Her EKG and troponin are negative here. Her total CK is minimally elevated creatinine is normal. I agree with Dr. Dejesus that her pain is highly atypical in that she is stable for discharge to follow up with a primary care physician. She has been evaluated as an inpatient for this chest pain. Further she was able to undergo a upper endoscopy last month without issue. I have had a long discussion with her that we cannot manage her chronic conditions here in the emergency department and she needs to establish for blood pressure control cholesterol control and diabetes control. I have made referrals to her for a podiatry assistant as well as her primary care physician on multiple occasions and again will do so today. I discussed with her that if her pain changes she should become short of breath she should return to the emergency department for evaluation. At this time I agree with Dr. Dejesus that she is stable for discharge. Diagnosis Primary Impression: Acute chest wall pain Referrals: Sedrick Gotti MD,Heidi STANTON Additional Instruction: High blood pressure over a long time can cause you to have serious adverse health problems including high blood pressure renal failure need for dialysis and heart attack. Your chest pain today is very atypical for cardiac pain and EKG and troponin (blood test for heart attack) are negative. It is highly advisable that she was established by primary care physician. After our discussions and ear lack of insurance you may need to call favors in to establish primary care physician and pay silva. The emergency department does not do checkups and does not manage chronic pain. If your pain changes you need to consider following up with the emergency department at that time he will be evaluated for an acute life-threatening emergency. If one exists we will be happy to treat you. If not you may be discharged. Emergency room physicians are not trained to manage your chronic conditions and it may be dangerous for an emergency physician to manage them. Disposition: 01 DISCHARGE HOME Condition: Stable Haroldo Cotto MD Oct 02, 2016 17:45
[2016-10-02 19:01] VITALS: BP 144/66; PULSE 76; RESP 18; O2SAT 97
--- NOTE | 2016-10-02 23:01 | EKG ---
Date Performed: 10/02/2016 Time Performed: 15:04:34 PTAGE: 56 years EKG: Sinus rhythm POSSIBLE LEFT ATRIAL ENLARGEMENT POSSIBLE LEFT VENTRICULAR HYPERTROPHY ABNORMAL ECG Compared to prev ious EKG from 08/25/16, no significant change DOCTOR: Eddie López Interpretating Date/Time 10/02/2016 22:59:31
== END 2016-10-02 19:18 | disposition home or self-care (01) ==
LOC: NEPA 14:54
DX: R07.89 Other chest pain (principal); I10 Essential (primary) hypertension; E11.9 Type 2 diabetes mellitus without complications
CPT/HCPCS: 80048; 82550; 82552; 84484; 85025; 93005

== ENCOUNTER 2016-11-19 14:43 | Emergency (ER) | payer OTHER ==
[~2016-11-19] VITALS: Ht 160 cm; Wt 113.5 kg
[2016-11-19 14:46] VITALS: BP 137/78; PULSE 90; RESP 15; TEMP 97.4; O2SAT 100
--- NOTE | 2016-11-19 14:50 | PD ---
Physical Exam Time Seen by Provider: 14:48 Narrative 66 year old female presents for evaluation of lower back pain for 3 days. Hx herniated discs. Denies radiating pain. Denies injury, but notes that she has occasionally fallen in the recent past. VSS Seen at triage desk. Awaiting bed placement. Data Data Last Documented VS Vital Signs Date Time Temp Pulse Resp B/P Pulse Ox O2 Delivery O2 Flow Rate FiO2 11/19/16 14:46 97.4 90 15 137/78 100 MDM Medical Record Reviewed: Yes Supervised Visit with RAÚL: Yes Bhavesh Lora Nov 19, 2016 14:50
[2016-11-19] MEDS ORDERED: POTA10TA2 PO (15:11)
[2016-11-19] MEDS ORDERED: GLIP10TA6 PO (15:11)
[2016-11-19] MEDS ORDERED: LANTUS2P SQ (15:12)
--- NOTE | 2016-11-19 15:23 | PD ---
HPI Chief Complaint: Back/ Neck Pain or Injury Time Seen by Provider: 15:22 Travel History International Travel<30 days: No Contact w/Intl Traveler<30days: No Traveled to known affect area: No History of Present Illness HPI 56-year-old female presents to the emergency Department with complaint of acute exacerbation of chronic low back pain 3 or 4 days. Denies new or recent injury. Has a chronic low back pain since 2006. Pain is consistent with past exacerbations. She denies fever, chills, nausea, vomiting. Denies dysuria, urgency, frequency, hematuria. Denies abdominal pain. Denies encopresis, incontinence, saddle anesthesias. Denies paresthesias, loss of sensation, decreased range of motion, decreased strength to bilateral lower extremities. Denies IV drug use or cancer. Pain is worse with walking, sitting, laying down. He took Flexeril yesterday with no relief of symptoms. Has not taken any other medications or tried any other treatments for symptom relief. Allergies to latex, metformin, Motrin, Tylenol. Says she cannot take Motrin or Tylenol because of her liver otherwise she is not allergic to it. Does not have an established primary care provider. No other modifying factors or associated signs and symptoms. PFSH Past Medical History Asthma: Yes Anxiety: Yes Depression: Yes Heart Rhythm Problems: No Cancer: No Cardiovascular Problems: Yes High Cholesterol: No Chemotherapy: No Chest Pain: Yes Congestive Heart Failure: No COPD: No Diabetes: Yes Patient Takes Glucophage: No Diminished Hearing: No Endocrine: No Gastrointestinal Disorders: Yes (Hep C, esophageal varices) Genitourinary: No Hepatitis: Yes (HEP C) Hypertension: Yes Immune Disorder: No Implanted Vascular Access Dvce: No Musculoskeletal: Yes (BULGING DISC, Spinal stenosis) Neurologic: No Psychiatric: Yes Reproductive: No Respiratory: Yes (COPD) Immunizations Current: Yes Radiation Therapy: No Sleep Apnea: No Thyroid Disease: No Ulcer: Yes Tubal Ligation: Yes Past Surgical History Abdominal Surgery: Yes (esophageal banding) Cardiac Surgery: No Other Surgery: No Social History Alcohol Use: No Tobacco Use: No Substance Use: No Allergies-Medications (Allergen,Severity, Reaction): Coded Allergies: Latex (Verified Allergy, Severe, rash and swelling, 11/19/16) Metformin (Verified Allergy, Severe, 11/19/16) Motrin (Verified Allergy, Severe, 11/19/16) Tylenol (Verified Allergy, Severe, Nausea/Vomiting, 11/19/16) Reported Meds & Prescriptions Reported Meds & Active Scripts Active Keflex (Cephalexin) 500 Mg Cap 500 Mg PO Q12H 7 Days Robaxin (Methocarbamol) 500 Mg Tab 500 Mg PO QID PRN Tramadol (Tramadol HCl) 50 Mg Tab 50 Mg PO Q6H PRN Furosemide 20 Mg Tab 20 Mg PO DAILY Ventolin Hfa 18 GM Inh (Albuterol Sulfate) 90 Mcg/Act Aer 2 Puff INH Q4H PRN Metoprolol Tartrate 25 Mg Tab 12.5 Mg PO Q12HR Reported Lantus Inj (Insulin Glargine) 1,000 Unit/10 Ml Vial 30 Units SQ HS Potassium Chloride ER (Potassium Chloride) 10 Meq Tab 10 Meq PO DAILY Glipizide 10 Mg Tab 10 Mg PO BIDAC Take 30 minutes before a meal Benadryl Allergy (Diphenhydramine HCl) 25 Mg Tab 50 Mg PO HS PRN B Complex (B-Complex Vitamins) 1 Cap 1 Cap PO DAILY Review of Systems Except as stated in HPI: all other systems reviewed are Neg Physical Exam Narrative GENERAL: Well-nourished, well-developed female patient, in no acute distress SKIN: Warm and dry. HEAD: Atraumatic. Normocephalic. EYES: Pupils equal and round. No scleral icterus. No injection or drainage. ENT: Mucosa pink and moist. Airway patent. NECK: Trachea midline. CARDIOVASCULAR: Regular rate and rhythm. No murmur appreciated. RESPIRATORY: No accessory muscle use. Breath sounds clear and equal bilaterally. GASTROINTESTINAL: Abdomen soft, non-tender, nondistended. Positive bowel sounds. No hepato-splenomegaly, or palpable masses. No guarding. MUSCULOSKELETAL: Bilateral lower extremities supple and non-tense with 2+ pedal pulses and sensory intact; with full range of motion and 5/5 strength. Patient refusing to get out of wheelchair because she says her back hurts too bad. She says she is ambulatory but doesn't want to move. Sitting up in bed at 90. No obvious deformities. No clubbing. No cyanosis. No edema. BACK: No midline point tenderness on palpation of the lumbar or thoracic spine. Reproducible tenderness to bilateral musculature of the low thoracic area. Possible CVA tenderness. No obvious deformities. NEUROLOGICAL: Awake and alert. Oriented 3. No obvious cranial nerve deficits. Motor grossly within normal limits. Normal speech. Moves all extremities. 5/5 strength to all extremities. Sensory intact. PSYCHIATRIC: Appropriate mood and affect; insight and judgment normal. Data Data Last Documented VS Vital Signs Date Time Temp Pulse Resp B/P Pulse Ox O2 Delivery O2 Flow Rate FiO2 11/19/16 14:46 97.4 90 15 137/78 100 Orders Urinalysis - C+S If Indicated (11/19/16 15:23) Ketorolac Inj (Toradol Inj) (11/19/16 15:30) Orphenadrine Inj (Norflex Inj) (11/19/16 15:30) Urine Culture (11/19/16 15:30) Lidocaine 1% Inj (50 Ml) (Xylocaine 1% I (11/19/16 16:15) Ceftriaxone Inj (Rocephin Inj) (11/19/16 16:15) Labs Laboratory Tests Test 11/19/16 15:30 Urine Color YELLOW Urine Turbidity HAZY Urine pH 6.0 Urine Specific [place] 1.022 Urine Protein TRACE mg/dL Urine Glucose (UA) NEG mg/dL Urine Ketones NEG mg/dL Urine Occult Blood SMALL Urine Nitrite NEG Urine Bilirubin SMALL Urine Urobilinogen 4.0 MG/DL Urine Leukocyte Esterase TRACE Urine RBC 11 /hpf Urine WBC 3 /hpf Urine Squamous Epithelial 9 /hpf Cells Urine Bacteria MOD /hpf Urine Mucus FEW /lpf Microscopic Urinalysis Comment CULTURE INDICATED MDM Medical Decision Making Medical Screen Exam Complete: Yes Emergency Medical Condition: Yes Medical Record Reviewed: Yes Differential Diagnosis Acute exacerbation of chronic low back pain, sciatica, UTI, pyelonephritis Narrative Course 56-year-old female with chronic low back pain since 2006 with acute exacerbation of chronic low back pain. Possible CVA tenderness on exam. She denies urinary symptoms. Denies IV drug use, cancer. Denies fever, chills, nausea, vomiting, abdominal pain. Patient is afebrile and nontoxic-appearing. Denies encopresis, incontinence, saddle anesthesias. Patient refuses to get out of the wheelchair for physical exam secondary to pain. She states that she is ambulatory but doesn't want to move because of intense pain. Patient was wheeled to the bathroom and she did get out of the wheelchair and use the bathroom to obtain a urine sample. Urinalysis ordered. Toradol and Norflex ordered. 1610: Urinalysis was signs of infection. Rocephin administered in the ER. Keflex, ibuprofen, Robaxin prescribed for home. Patient verbalizes understanding and agreement with treatment plan. Patient is medically cleared and stable for discharge. Discussed reasons to return to the emergency department. Instructed patient to follow up with primary care provider. Patient agrees with treatment plan. The patients vital signs are stable and the patient is stable for outpatient follow-up and treatment. Patient discharged home, stable and in no acute distress. Diagnosis Primary Impression: UTI (urinary tract infection) Qualified Code: N39.0 - Urinary tract infection without hematuria, site unspecified Referrals: Primary Care Physician Patient Instructions: Acute Low Back Pain (ED), General Instructions, Urinary Tract Infection in Women (ED) Additional Instructions: Robaxin as prescribed and as needed for muscle spasms Heating pad and/or ice to affected area to reduce pain Avoid aggravating activities; increase activity as tolerated Follow-up with primary care provider Return to emergency department immediately with worsening of symptoms Med/Other Pt SpecificInfo: Prescription(s) given Scripts Cephalexin (Keflex)500 Mg Eys395 Mg PO Q12H 7 Days Ref 0 Prov:Rizwana Varghese 11/19/16 Methocarbamol (Robaxin)500 Mg Qdb026 Mg PO QID PRN (MUSCLE SPASM) #30 TAB Ref 0 Prov:Rizwana Varghese 11/19/16 Disposition: 01 DISCHARGE HOME Condition: Stable Rizwana Varghese Nov 19, 2016 15:22
[2016-11-19] MEDS ORDERED: KETOROLAC TROMETHAMINE 60 MG/2 ML (IM) VIAL IM ONE (15:30)
[2016-11-19] MEDS ORDERED: ORPHENADRINE INJ 60 MG/2 ML AMP IM ONE (15:30)
[2016-11-19] MEDS ORDERED: ROBA500T PO (15:31)
[2016-11-19 16:00] LABS: BACTERIA, URINE MOD /hpf; BLOOD, URINE SMALL (NEG); COMMENT (UR) CULTURE INDICATED; CULTURE IF INDICATED CULTURE INDICATED; GLUCOSE,URINE NEG (NEG); KETONE, URINE NEG (NEG); MUCUS URINE FEW /lpf (OCC); NITRITE,URINE NEG (NEG); SQUAMOUS EPITHELIAL CELL URINE 9 /hpf (0-5); URINE COLOR YELLOW (YELLW/STRAW)
[2016-11-19] MEDS ORDERED: CEPH-460 PO (16:12)
[2016-11-19] MEDS ORDERED: LIDOCAINE HCL 1% 50 ML VIAL IM ONE (16:15)
== END 2016-11-19 16:36 | disposition home or self-care (01) ==
LOC: NEPK 14:43
DX: N39.0 Urinary tract infection, site not specified (principal); M54.5 Low back pain; G89.29 Other chronic pain; E11.9 Type 2 diabetes mellitus without complications; I10 Essential (primary) hypertension; Z79.4 Long term (current) use of insulin; Z87.39 Personal history of other diseases of the musculoskeletal system and connective tissue; Z87.09 Personal history of other diseases of the respiratory system; Z86.59 Personal history of other mental and behavioral disorders; Z86.79 Personal history of other diseases of the circulatory system; Z87.19 Personal history of other diseases of the digestive system
CPT/HCPCS: 81001; 87086; 96372; 99283; J0696; J1885; J2360

== ENCOUNTER 2017-02-14 13:07 | Emergency (ER) | payer OTHER ==
[~2017-02-14] VITALS: Ht 160 cm; Wt 90.0 kg
[~2017-02-14 13:07] MED LIST changes: +CEPH-460 PO; +GLIP10TA6 PO; +LANTUS2P SQ; +POTA10TA2 PO; +ROBA500T PO
[2017-02-14 13:08] VITALS: BP 188/86; PULSE 88; RESP 24; TEMP 97.9; O2SAT 99
--- NOTE | 2017-02-14 13:29 | PD ---
Physical Exam Time Seen by Provider: 13:27 Narrative 57yo F c/o R knee and wrist pain after her legs gave out and she fell. Says she has chronic leg pain and her legs give out on her. Denies hitting head, LOC. Denies anticoagulants. Patient seen in triage. VS reviewed. Awaiting bed placement. Data Data Last Documented VS Vital Signs Date Time Temp Pulse Resp B/P Pulse Ox O2 Delivery O2 Flow Rate FiO2 02/14/17 13:08 97.9 88 24 188/86 99 Room Air MDM Supervised Visit with RAÚL: Rizwana Wray Feb 14, 2017 13:29
--- NOTE | 2017-02-14 14:29 | PD ---
HPI Chief Complaint: Musculoskeletal Complaint Time Seen by Provider: 14:29 Travel History International Travel<30 days: No Contact w/Intl Traveler<30days: No Traveled to known affect area: No History of Present Illness HPI 57-year-old female presents to the emergency department for evaluation of right wrist and right knee pain after she fell 2 days ago. Patient states that she has a history of her legs giving out on falling. She states that this happened again. She states that since she has had pain in her right knee and right wrist. Patient is ambulatory with a cane. She denies hitting her head or loss of consciousness. She denies any neck pain. She completed to chronic back pain , but states this is not new or different from her usual pain. She denies any chest pain or abdominal pain. No nausea, vomiting, diarrhea. Patient is not on anticoagulants. She has no bleeding disorders. PFSH Past Medical History Asthma: Yes Anxiety: Yes Depression: Yes Heart Rhythm Problems: No Cancer: No Cardiovascular Problems: Yes High Cholesterol: No Chemotherapy: No Chest Pain: Yes Congestive Heart Failure: No COPD: No Diabetes: Yes Patient Takes Glucophage: No Diminished Hearing: No Endocrine: No Gastrointestinal Disorders: Yes (Hep C, esophageal varices) Genitourinary: No Hepatitis: Yes (HEP C) Hypertension: Yes Immune Disorder: No Implanted Vascular Access Dvce: No Musculoskeletal: Yes (BULGING DISC, Spinal stenosis) Neurologic: No Psychiatric: Yes Reproductive: No Respiratory: Yes (COPD) Immunizations Current: Yes Radiation Therapy: No Sleep Apnea: No Thyroid Disease: No Ulcer: Yes Tetanus Vaccination: > 5 Years Influenza Vaccination: No ?: Not Tubal Ligation: Yes Past Surgical History Abdominal Surgery: Yes (esophageal banding) Cardiac Surgery: No Other Surgery: No Social History Alcohol Use: No Tobacco Use: No Substance Use: No Allergies-Medications (Allergen,Severity, Reaction): Coded Allergies: Latex (Verified Allergy, Severe, rash and swelling, 02/14/17) Metformin (Verified Allergy, Severe, 02/14/17) Motrin (Verified Allergy, Severe, 02/14/17) Tylenol (Verified Allergy, Severe, Nausea/Vomiting, 02/14/17) Reported Meds & Prescriptions Reported Meds & Active Scripts Active Robaxin (Methocarbamol) 500 Mg Tab 500 Mg PO QID PRN Tramadol (Tramadol HCl) 50 Mg Tab 50 Mg PO Q6H PRN Furosemide 20 Mg Tab 20 Mg PO DAILY Ventolin Hfa 18 GM Inh (Albuterol Sulfate) 90 Mcg/Act Aer 2 Puff INH Q4H PRN Metoprolol Tartrate 25 Mg Tab 12.5 Mg PO Q12HR Reported Potassium Chloride ER (Potassium Chloride) 10 Meq Tab 10 Meq PO DAILY B Complex (B-Complex Vitamins) 1 Cap 1 Cap PO DAILY Review of Systems Except as stated in HPI: all other systems reviewed are Neg Physical Exam Narrative GENERAL: Well-nourished, well-developed female patient, afebrile. SKIN: Focused skin assessment warm/dry. HEAD: Normocephalic. Atraumatic. EYES: No scleral icterus. No injection or drainage. NECK: Supple, trachea midline. No JVD or lymphadenopathy. CARDIOVASCULAR: Regular rate and rhythm without murmurs, gallops, or rubs. Bilateral radial and pedal pulses 2+. RESPIRATORY: Breath sounds equal bilaterally. No accessory muscle use. Lungs sounds are clear to auscultation GASTROINTESTINAL: Abdomen soft, non-tender, nondistended. MUSCULOSKELETAL: No cyanosis, or edema. Patient has tenderness over right anterior knee. She has slightly reduced flexion. She has sensation distal right upper extremities. She also has mild tenderness over right wrist with flexion only. Patient also has mild tenderness over right anterior ankle with palpation. BACK: Nontender without obvious deformity. No CVA tenderness. Data Data Last Documented VS Vital Signs Date Time Temp Pulse Resp B/P Pulse Ox O2 Delivery O2 Flow Rate FiO2 02/14/17 14:11 92 20 02/14/17 13:08 97.9 188/86 99 Room Air Orders Tramadol (Ultram) (02/14/17 14:30) Knee, Complete (4vws) (02/14/17 ) Wrist, Complete ([id number]) (02/14/17 ) Tibia/Fibula (Ap/Lat) (02/14/17 ) MDM Medical Decision Making Medical Screen Exam Complete: Yes Emergency Medical Condition: Yes Medical Record Reviewed: Yes Interpretation(s) Last Impressions Wrist X-Ray 02/14/17 0000 Signed Impressions: Service Date/Time: Tuesday, February 14, 2017 14:45 - CONCLUSION: No evidence of recent bony injury. Pelon High MD Tibia/Fibula X-Ray 02/14/17 0000 Signed Impressions: Service Date/Time: Tuesday, February 14, 2017 14:43 - CONCLUSION: No evidence of recent bone injury. Widening of the shaft of the proximal 3rd fibula has a nonaggressive appearance, possibly representing an enchondroma or bone cyst. Pelon High MD Knee X-Ray 02/14/17 0000 Signed Impressions: Service Date/Time: Tuesday, February 14, 2017 14:41 - CONCLUSION: No evidence of recent bone injury. Pelon High MD Differential Diagnosis Contusion versus fracture versus sprain versus dislocation Narrative Course 57-year-old female presents to the emergency department for evaluation of right wrist and right knee pain after a fall 2 days ago. On exam, patient has tenderness to the right wrist, right knee, right ankle. X-ray of the right wrist, right ankle, right knee are ordered and pending. X-ray of the right wrist shows no evidence of recent bony injury. X-ray of the right ankle shows no bony injury, she does have possible enchondroma or bone cyst. X-ray of the right knee shows no evidence of recent bony injury. I did spend patient to follow-up of a possible bone she has any issues. She verbalizes agreement. Patient is provided Godfrey bandage to her knee. She is instructed ice and elevate. Patient verbalizes agreement and her stating. She states that she has a walker at home and is using a cane. The patient was discharged in stable condition with instructions, including return instructions and follow up instructions. Diagnosis Primary Impression: Left knee sprain Qualified Code: S83.92XA - Sprain of left knee, unspecified ligament, initial encounter Referrals: Primary Care Physician call for appointment Patient Instructions: General Instructions, Knee Sprain (ED) Additional Instructions: Wear Godfrey bandage as needed for support. Ice for 20 minutes 4-5 times daily. Follow-up with your primary care physician. Return to the emergency department for any acute worsening of symptoms. Med/Other Pt SpecificInfo: Prescription(s) given Disposition: 01 DISCHARGE HOME Condition: Stable BijanAntonietta Feb 14, 2017 14:29
[2017-02-14] MEDS ORDERED: traMADol HCL 50 MG TAB PO ONE (14:30)
--- NOTE | 2017-02-14 15:06 | RADRPT ---
EXAM DATE/TIME: 02/14/2017 14:41 [facility] COMPARISON: KNEE RIGHT COMPLETE (4VWS), July 22, 2016, 14:07. INDICATIONS : Fell, complains of right knee pain. MEDICAL HISTORY : None. SURGICAL HISTORY : None. ENCOUNTER: Initial ACUITY: 1 day PAIN SCORE: 10/10 LOCATION: Right knee FINDINGS: There is diffuse osteopenia. There is moderate narrowing of the medial compartment with subchondral cyst in the tibial plateau and moderate size osteophytes; degenerative changes are similar appearance to prior examination in July 2016. The suprapatellar soft tissues are normal in thickness. No fracture seen. No radiopaque foreign bodies. CONCLUSION: No evidence of recent bone injury. Pelon High MD on February 14, 2017 at 15:04 Board Certified Radiologist. This report was verified electronically.
--- NOTE | 2017-02-14 15:10 | RADRPT ---
EXAM DATE/TIME: 02/14/2017 14:45 [facility] COMPARISON: No previous studies available for comparison. INDICATIONS : Fall, complains of right wrist pain. MEDICAL HISTORY : None. SURGICAL HISTORY : None. ENCOUNTER: Initial ACUITY: 1 day PAIN SCORE: 10/10 LOCATION: Right wrist FINDINGS: Three view examination of the right wrist demonstrates no soft tissue swelling, dislocation, or fract ure. The carpal bones are in normal alignment. The joint spaces are maintained. Bony mineralizatio n is normal. CONCLUSION: No evidence of recent bony injury. Pelon High MD on February 14, 2017 at 15:08 Board Certified Radiologist. This report was verified electronically.
--- NOTE | 2017-02-14 15:10 | RADRPT ---
EXAM DATE/TIME: 02/14/2017 14:43 [facility] COMPARISON: No previous studies available for comparison. INDICATIONS : Fall, complains of right lower leg pain. MEDICAL HISTORY : None. SURGICAL HISTORY : None. ENCOUNTER: Initial ACUITY: 1 day PAIN SCORE: 10/10 LOCATION: Right tibia fibula FINDINGS: Two view examination of the right tibia demonstrates no evidence of fracture or dislocation. Bony mi neralization is normal. There is focal widening of the proximal one third shaft of the fibula sugges ting possible enchondroma. The soft tissue structures are intact. CONCLUSION: No evidence of recent bone injury. Widening of the shaft of the proximal 3rd fibula has a nonaggress carin appearance, possibly representing an enchondroma or bone cyst. Pelon High MD on February 14, 2017 at 15:07 Board Certified Radiologist. This report was verified electronically.
[2017-02-14] MEDS ORDERED: TRAM50TA PO (15:55)
== END 2017-02-14 16:16 | disposition home or self-care (01) ==
LOC: NEPD 13:07
DX: S83.92XA Sprain of unspecified site of left knee, initial encounter (principal); M25.531 Pain in right wrist; F41.9 Anxiety disorder, unspecified; E11.9 Type 2 diabetes mellitus without complications; K75.9 Inflammatory liver disease, unspecified; I10 Essential (primary) hypertension; J44.9 Chronic obstructive pulmonary disease, unspecified; Z79.899 Other long term (current) drug therapy; W19.XXXA Unspecified fall, initial encounter
CPT/HCPCS: 73110; 73564; 73590; 99284

== ENCOUNTER 2017-08-23 02:26 | Observation (INO) | payer OTHER ==
[2017-08-23] VITALS (7 sets, daily range): BP systolic 127–142; BP diastolic 62–81; PULSE 72–99; RESP 16–20; TEMP 97.4–98.6; O2SAT 92–98
[~2017-08-23] VITALS: Ht 157.5 cm; Wt 118.6 kg
[~2017-08-23 02:26] MED LIST changes: +ATEN25TA PO; -BENA25TA3 PO; -CEPH-460 PO; +CYCL10TA PO; +FURO1TAB60 PO; -FURO20TA PO; -GLIP10TA6 PO; +KLOR10TA PO; -LANTUS2P SQ; -METO25TA3 PO; +MORP1TAB25 PO; -POTA10TA2 PO; -ROBA500T PO; -TRAM50TA PO; +VITA1000 PO; -VITACAP7 PO
[2017-08-23] MEDS ORDERED: FENT25DI T-DERMAL (02:57)
[2017-08-23] MEDS ORDERED: SODIUM CHLORIDE 0.9% FLUSH 10 ML FLUSH IVF PRN (04:30)
--- NOTE | 2017-08-23 04:59 | RADRPT ---
EXAM DATE/TIME: 08/23/2017 04:50 [facility] COMPARISON: CHEST SINGLE AP, August 22, 2016, 0:06. INDICATIONS : Chest pain. MEDICAL HISTORY : Hypertension. Hepatitis C. Diabetes mellitus type II. SURGICAL HISTORY : None. ENCOUNTER: Initial ACUITY: 1 day PAIN SCORE: 8/10 LOCATION: Bilateral chest neck and back FINDINGS: There is some prominence of pulmonary vasculature suggestive of some pulmonary venous congestion. Oth erwise, the lungs are grossly clear. The heart size is enlarged but stable. No definite pleural effus ions. No evidence of pneumothorax. The bony structures are stable. CONCLUSION: Mild pulmonary venous congestion. True Ocampo MD on August 23, 2017 at 4:57 Board Certified Radiologist. This report was verified electronically.
[2017-08-23 05:26] LABS: AUTOMATED NEUTROPHIL # 1.6 TH/MM3 (1.8-7.7); BASOPHIL % 0.6 % (0.0-2.0); EOSINOPHIL # 0.1 TH/MM3 (0-0.4); EOSINOPHIL % 3.8 % (0.0-4.0); HEMATOCRIT 41.3 % (35.0-46.0); HEMOGLOBIN 13.5 GM/DL (11.6-15.3); LYMPH % 38.9 % (9.0-44.0); LYMPHOCYTE # 1.4 TH/MM3 (1.0-4.8); MEAN CELL VOLUME 88.5 FL (80.0-100.0); MEAN CORPUSCULAR HGB CONC 32.8 % (32.0-36.0); MEAN PLATELET VOLUME 11.2 FL (7.0-11.0); MONO % 13.5 % (0.0-8.0); MONOCYTE # 0.5 TH/MM3 (0-0.9); NEUT % 43.2 % (16.0-70.0); PLATELET COUNT 105 TH/MM3 (150-450); RED BLOOD COUNT 4.67 MIL/MM3 (4.00-5.30); RED CELL DISTRIBUTION WIDTH 14.1 % (11.6-17.2); WHITE BLOOD COUNT 3.6 TH/MM3 (4.0-11.0)
[2017-08-23 05:47] LABS: ALBUMIN 2.7 GM/DL (3.4-5.0); ALT (GPT) 134 U/L (10-53); AST (GOT) 149 U/L (15-37); BICARBONATE 27.2 MEQ/L (21.0-32.0); BLOOD UREA NITROGEN 10 MG/DL (7-18); CALCIUM 8.3 MG/DL (8.5-10.1); CHLORIDE 106 MEQ/L (98-107); CREATININE 0.58 MG/DL (0.50-1.00); GLOMERULAR FILTRATION RATE 129 ML/MIN (>89); GLUCOSE,RANDOM 136 MG/DL (74-106); MAGNESIUM 1.9 MG/DL (1.5-2.5); SODIUM (NA) 139 MEQ/L (136-145)
[2017-08-23 05:53] LABS: ALKALINE PHOSPHATASE 279 U/L (45-117); TOTAL BILIRUBIN ADULT 2.6 MG/DL (0.2-1.0); TOTAL PROTEIN 7.8 GM/DL (6.4-8.2); TROPONIN I LESS THAN 0.02 NG/ML (0.02-0.05)
[2017-08-23 06:08] LABS: INTERNATIONAL NORMALIZED RATIO 1.3 RATIO; PROTHROMBIN TIME - PATIENT 12.8 SEC (9.8-11.6)
[2017-08-23 06:12] LABS: D-DIMER 1.16 MG/L FEU (0.00-0.50)
[2017-08-23] MEDS ORDERED: ALUMINUM/MAGNESIUM/SIMETH 30 ML CUP PO ONE (06:15)
[2017-08-23] MEDS ORDERED: NITROGLYCERIN 2% OINT 1 GM PACKET TOPICAL ONE (06:15)
[2017-08-23] MEDS ORDERED: FUROSEMIDE 20 MG/2 ML VIAL IV PUSH ONE (06:15)
[2017-08-23] MEDS ORDERED: LIDOCAINE VISCOUS 2% SOLN 15 ML UDC SWISH-SWAL ONE (06:15)
--- NOTE | 2017-08-23 06:47 | PD ---
HPI . Chest pain Chief Complaint: Pain: Acute or Chronic Time Seen by Provider: 04:12 Travel History International Travel<30 days: No Contact w/Intl Traveler<30days: No Traveled to known affect area: No History of Present Illness HPI 57-year-old female with substernal sharp chest pain worse with deep breath this evening. Patient has not had this type of pain before, denies having recent upper respiratory infection.. Patient has a slight cough with frothy sputum production. Patient denies any fever chills sweats. Patient does note mild increased discomfort and shortness of breath with lying flat. Denies any recent sedentary. Her confined travel, leg pain or increased swelling. Patient denies any recent change in exercise tolerance but does note dyspnea on exertion is evening PFSH Past Medical History Narrative Medical Past medical history reviewed Arthritis: Yes Asthma: Yes Anxiety: Yes Depression: Yes Heart Rhythm Problems: No Cancer: No Cardiovascular Problems: Yes High Cholesterol: No Chemotherapy: No Chest Pain: Yes Congestive Heart Failure: No COPD: No Diabetes: Yes Diminished Hearing: No Endocrine: No Gastrointestinal Disorders: Yes (Hep C, esophageal varices) Genitourinary: No Hepatitis: Yes (HEP C) Herniated Disk: Yes (9 herinated discs) Hypertension: Yes Immune Disorder: No Implanted Vascular Access Dvce: No Musculoskeletal: Yes (BULGING DISC, Spinal stenosis) Neurologic: No Psychiatric: Yes Reproductive: No Respiratory: Yes (COPD) Immunizations Current: Yes Radiation Therapy: No Sleep Apnea: No Thyroid Disease: No Ulcer: Yes Tubal Ligation: Yes Past Surgical History Abdominal Surgery: Yes (esophageal banding) Cardiac Surgery: No Other Surgery: No Social History Alcohol Use: No Tobacco Use: No Substance Use: No Allergies-Medications (Allergen,Severity, Reaction): Coded Allergies: acetaminophen (Unverified Allergy, Severe, Nausea/Vomiting, 08/23/17) ibuprofen (Unverified Allergy, Severe, 08/23/17) latex (Unverified Allergy, Severe, rash and swelling, 08/23/17) metformin (Unverified Allergy, Severe, 08/23/17) Reported Meds & Prescriptions Reported Meds & Active Scripts Active Ventolin Hfa 18 GM Inh (Albuterol Sulfate) 90 Mcg/Act Aer 2 Puff INH Q4H PRN Reported Fentanyl Patch 72 HR (Fentanyl) 25 Mcg/Hr Patch 25 Mcg T-DERMAL Q72H Vitamin D-1000 (Cholecalciferol) 1,000 Unit Tab 1,000 Units PO DAILY Lasix (Furosemide) 40 Mg Tab 40 Mg PO DAILY Klor-Con 10 (Potassium Chloride) 10 Meq Tab 10 Meq PO DAILY Flexeril (Cyclobenzaprine HCl) 10 Mg Tab 10 Mg PO TID Atenolol 25 Mg Tab 25 Mg PO DAILY Narrative Medication Allergies and medications reviewed Review of Systems Except as stated in HPI: all other systems reviewed are Neg General / Constitutional: No: Fever Eyes: No: Visual changes HENT: No: Headaches Cardiovascular: Positive: Chest Pain or Discomfort, No: Palpitations, Irregular Rhythm, Tachycardia, Diaphoresis, Syncope, Dyspnea on exertion, Varicosities, Edema, Cyanosis, Varicosities, Phlebitis Respiratory: Positive: Cough, Orthopnea, Pleuritic Pain, No: Shortness of Breath, Wheezing, Hemoptysis, Stridor, Night Sweats Gastrointestinal: No: Nausea, Diarrhea, Abdominal Pain Genitourinary: No: Dysuria Musculoskeletal: No: Pain Skin: No Rash Neurologic: No: Weakness Psychiatric: No: Depression Endocrine: No: Polydipsia Hematologic/Lymphatic: No: Easy Bruising Physical Exam Narrative GENERAL: Awake alert oriented 3 no acute distress vital signs afebrile normal and stable. Patient is morbidly obese. Somewhat difficult exam SKIN: Warm and dry. Color is normal diaphoresis cyanosis or pallor HEAD: Atraumatic. Normocephalic. EYES: Pupils equal and round. No scleral icterus. No injection or drainage. ENT: No nasal bleeding or discharge. Mucous membranes pink and moist. NECK: Trachea midline. No JVD. Supple nontender full range of motion CARDIOVASCULAR: Regular rate and rhythm. S1-S2 no murmurs rubs or gallops RESPIRATORY: No accessory muscle use. Clear to auscultation. Breath sounds equal bilaterally. Chest wall nontender GASTROINTESTINAL: Abdomen soft, non-tender, nondistended. Hepatic and splenic margins not palpable. MUSCULOSKELETAL: Extremities without clubbing, cyanosis, or edema. No obvious deformities. NEUROLOGICAL: Awake and alert. No obvious cranial nerve deficits. Motor grossly within normal limits. Five out of 5 muscle strength in the arms and legs. Normal speech. PSYCHIATRIC: Appropriate mood and affect; insight and judgment normal. Data Data Last Documented VS Vital Signs Date Time Temp Pulse Resp B/P (MAP) Pulse Ox O2 Delivery O2 Flow Rate FiO2 08/23/17 04:34 98 Room Air 08/23/17 02:29 98.6 83 16 131/81 (98) Orders Orders Electrocardiogram (08/23/17 04:29) B-Type Natriuretic Peptide (08/23/17 04:29) Ckmb (Isoenzyme) Profile (08/23/17 04:29) Complete Blood Count With Diff (08/23/17 04:29) Comprehensive Metabolic Panel (08/23/17 04:29) D-Dimer (08/23/17 04:29) Magnesium (Mg) (08/23/17 04:29) Prothrombin Time / Inr (Pt) (08/23/17 04:29) Act Partial Throm Time (Ptt) (08/23/17 04:29) Troponin I (08/23/17 04:29) Chest, Single Ap (08/23/17 04:29) Ecg Monitoring (08/23/17 04:29) Bilateral Bp Monitoring (08/23/17 04:29) Iv Access Insert/Monitor (08/23/17 04:29) Oximetry (08/23/17 04:29) Oxygen Administration (08/23/17 04:29) Sodium Chloride 0.9% Flush (Ns Flush) (08/23/17 04:30) Westergren Sedimentation Rate (08/23/17 04:29) Al-Mag Hy-Si 40-40-4 Mg/Ml Liq (Mag-Al P (08/23/17 06:15) Lidocaine 2% Viscous (Xylocaine 2% Visco (08/23/17 06:15) Nitroglycerin 2% Oint (Nitroglycerin 2% (08/23/17 06:15) Furosemide Inj (Lasix Inj) (08/23/17 06:15) Troponin I (08/23/17 06:21) Ventilation & Perfusion Scan (08/23/17 ) Labs Laboratory Tests Test 08/23/17 04:29 08/23/17 05:00 08/23/17 06:40 Prothrombin Time 12.8 SEC Prothromb Time International Ratio 1.3 RATIO Activated Partial Thromboplast Time 28.2 SEC D-Dimer Quantitative (PE/DVT) 1.16 MG/L FEU White Blood Count 3.6 TH/MM3 Red Blood Count 4.67 MIL/MM3 Hemoglobin 13.5 GM/DL Hematocrit 41.3 % Mean Corpuscular Volume 88.5 FL Mean Corpuscular Hemoglobin 29.0 PG Mean Corpuscular Hemoglobin Concent 32.8 % Red Cell Distribution Width 14.1 % Platelet Count 105 TH/MM3 Mean Platelet Volume 11.2 FL Neutrophils (%) (Auto) 43.2 % Lymphocytes (%) (Auto) 38.9 % Monocytes (%) (Auto) 13.5 % Eosinophils (%) (Auto) 3.8 % Basophils (%) (Auto) 0.6 % Neutrophils # (Auto) 1.6 TH/MM3 Lymphocytes # (Auto) 1.4 TH/MM3 Monocytes # (Auto) 0.5 TH/MM3 Eosinophils # (Auto) 0.1 TH/MM3 Basophils # (Auto) 0.0 TH/MM3 CBC Comment DIFF FINAL Differential Comment Erythrocyte Sedimentation Rate 19 mm/hr Blood Urea Nitrogen 10 MG/DL Creatinine 0.58 MG/DL Random Glucose 136 MG/DL Total Protein 7.8 GM/DL Albumin 2.7 GM/DL Calcium Level 8.3 MG/DL Magnesium Level 1.9 MG/DL Alkaline Phosphatase 279 U/L Aspartate Amino Transf (AST/SGOT) 149 U/L Alanine Aminotransferase (ALT/SGPT) 134 U/L Total Bilirubin 2.6 MG/DL Sodium Level 139 MEQ/L Potassium Level 4.2 MEQ/L Chloride Level 106 MEQ/L Carbon Dioxide Level 27.2 MEQ/L Anion Gap 6 MEQ/L Estimat Glomerular Filtration Rate 129 ML/MIN Total Creatine Kinase 95 U/L Troponin I LESS THAN 0.02 NG/ML B-Type Natriuretic Peptide 58 PG/ML MDM Medical Decision Making Medical Screen Exam Complete: Yes Emergency Medical Condition: Yes Medical Record Reviewed: Yes Differential Diagnosis Chest pain, orthopnea, upper respiratory infection, pneumonia, CHF, pulmonary embolus, pleuritis, pericarditis Narrative Course Patient's laboratory examinations reviewed, normal troponin, patient's d-dimer was delayed in resulting, positive. Elevated BNP consistent with possible CHF. Chest x-ray reveals pulmonary congestion bilateral mild Patient does not have a viable IV for CT pulmonary injury. V/Q scan ordered. Patient given Lasix IV and nitroglycerin to chest wall. Patient feels comfortable currently. Awaiting VQ scan Care plan developed with patient. VQ scan pending. Repeat troponin pending. Probable upper respiratory infection versus possible pulmonary embolus/atypical chest pain presentation. Patient to be reevaluated post-VQ scan Diagnosis Primary Impression: CHF (congestive heart failure) Qualified Codes: I50.9 - Heart failure, unspecified Additional Impression: Atypical chest pain Admitting Information Admitting Physician Requests: Jasbir Toro MD Aug 23, 2017 06:47
--- NOTE | 2017-08-23 08:39 | RADRPT ---
EXAM DATE/TIME: 08/23/2017 08:01 [facility] COMPARISON: CT ABDOMEN & PELVIS W/O CONTRAST, August 26, 2016, 0:02. INDICATIONS : Elevated liver function tests. ORAL CONTRAST: No oral contrast ingested. RADIATION DOSE: 22.58 CTDIvol (mGy) ; Patient body habitus MEDICAL HISTORY : Hepatitis C. Hypertension. Chronic obstructive pulmonary disease.diabetes SURGICAL HISTORY : Tubal ligation. esophageal banding ENCOUNTER: Initial ACUITY: 1 day PAIN SCALE: 3/10 LOCATION: Bilateral abdomen TECHNIQUE: Volumetric scanning of the abdomen and pelvis was performed. Using automated exposure control and ad justment of the mA and/or kV according to patient size, radiation dose was kept as low as reasonably achievable to obtain optimal diagnostic quality images. DICOM format image data is available electro nically for review and comparison. FINDINGS: LOWER LUNGS: Moderate to severe cylindrical bronchiectasis of the left lower lobe with similar appearance to the p rior study of 08/26/2016. Adjacent to the bronchiectasis in the inferior aspect of the left lower lobe there is a lobulated nodular density again identified, it measures 2.2 cm compared to 2.0 cm on the prior study. LIVER: Diffusely nodular contour of the liver capsule indicating cirrhosis. No gross focal mass identified. Small calcified gallstones identified in the gallbladder at the dependent portion. Gallbladder is non distended with mild diffuse wall thickening. No pericholecystic inflammatory change is seen. SPLEEN: Spleen is mildly prominent measuring just over 12 cm in craniocaudal dimension. No significant interv al change. Prominent varices are seen in the splenic hilum and anterior/superior to the left kidney. PANCREAS: Within normal limits. KIDNEYS: Normal in size and shape. There is no mass, stone, or hydronephrosis. ADRENAL GLANDS: Within normal limits. VASCULAR: There is no aortic aneurysm. BOWEL/MESENTERY: Scattered colonic diverticula. No evidence of acute diverticulitis. Appendix within normal limits. No evidence of bowel dilatation. No free air or free fluid. ABDOMINAL WALL: Within normal limits. RETROPERITONEUM: There is no lymphadenopathy. BLADDER: No wall thickening or mass. REPRODUCTIVE: Calcified uterine fibroid. 2.8 cm right ovarian cyst. INGUINAL: There is no lymphadenopathy or hernia. MUSCULOSKELETAL: Within normal limits for patient age. CONCLUSION: 1. Diffusely nodular contour liver capsule again seen indicating cirrhosis. No gross focal mass ident ified. 2. Cholelithiasis and nonspecific diffuse gallbladder wall thickening. 3. Evidence of portal venous hypertension with left upper quadrant varices. Mild splenomegaly. 4. Left lower lobe bronchiectasis and slight increase in size of 2 cm left lung base nodule adjacent to the bronchiectasis. Rickie Orozco MD on August 23, 2017 at 8:29 Board Certified Radiologist. This report was verified electronically.
--- NOTE | 2017-08-23 10:11 | RADRPT ---
EXAM DATE/TIME: 08/23/2017 09:22 [facility] COMPARISON: CHEST SINGLE AP, August 23, 2017, 4:50. INDICATIONS : Shortness of breath with chest pain for one day. DOSE: 8.7 mCi Tc99m MAA IV 0.95 mCi Tc99m DTPA aerosol MEDICAL HISTORY : Chronic obstructive pulmonary disease. SURGICAL HISTORY : Tubal ligation. ENCOUNTER: Initial ACUITY: 1 day PAIN SCALE: 5/10 LOCATION: chest TECHNIQUE: Following five minutes of tidal breathing of DTPA aerosol, planar images of the lungs were performed in eight projections. The patient was then injected with MAA, and eight-view perfusion scan was perf ormed. FINDINGS: Mild central clumping of radiotracer on the ventilation scan. Likely related to COPD. The perfusion lung scan demonstrates a homogenous pattern of uptake in both lungs. No segmental or s ubsegmental defects are seen. CONCLUSION: No evidence of pulmonary embolus. Rickie Orozco MD on August 23, 2017 at 10:06 Board Certified Radiologist. This report was verified electronically.
--- NOTE | 2017-08-23 12:03 | PD ---
Physical Exam Date Seen by Provider: Aug 23, 2017 Time Seen by Provider: 07:00 Narrative Patient signed out to me by at 7 AM, please see previous notes for further details. Patient is signed out to me awaiting CAT scan and VQ scan to rule out PE. Apparently had come in for chest pain, elevated d-dimer, elevated LFTs. Laboratory Tests Test 08/23/17 04:29 08/23/17 05:00 08/23/17 06:40 Prothrombin Time 12.8 SEC (9.8-11.6) D-Dimer Quantitative (PE/DVT) 1.16 MG/L FEU (0.00-0.50) White Blood Count 3.6 TH/MM3 (4.0-11.0) Platelet Count 105 TH/MM3 (150-450) Mean Platelet Volume 11.2 FL (7.0-11.0) Monocytes (%) (Auto) 13.5 % (0.0-8.0) Neutrophils # (Auto) 1.6 TH/MM3 (1.8-7.7) Random Glucose 136 MG/DL (74-106) Albumin 2.7 GM/DL (3.4-5.0) Calcium Level 8.3 MG/DL (8.5-10.1) Alkaline Phosphatase 279 U/L (45-117) Aspartate Amino Transf (AST/SGOT) 149 U/L (15-37) Alanine Aminotransferase (ALT/SGPT) 134 U/L (10-53) Total Bilirubin 2.6 MG/DL (0.2-1.0) Troponin I LESS THAN 0.02 NG/ML LESS THAN 0.02 NG/ML Last 24 hours Impressions Chest X-Ray 08/23/17 0429 Signed Impressions: Service Date/Time: Wednesday, August 23, 2017 04:50 - CONCLUSION: Mild pulmonary venous congestion. True Ocampo MD Lung Scan-VQ Nuclear Medicine 08/23/17 0000 Signed Impressions: Service Date/Time: Wednesday, August 23, 2017 09:22 - CONCLUSION: No evidence of pulmonary embolus. Rickie Orozco MD Abdomen/Pelvis CT 08/23/17 0000 Signed Impressions: Service Date/Time: Wednesday, August 23, 2017 08:01 - CONCLUSION: 1. Diffusely nodular contour liver capsule again seen indicating cirrhosis. No gross focal mass identified. 2. Cholelithiasis and nonspecific diffuse gallbladder wall thickening. 3. Evidence of portal venous hypertension with left upper quadrant varices. Mild splenomegaly. 4. Left lower lobe bronchiectasis and slight increase in size of 2 cm left lung base nodule adjacent to the bronchiectasis. Rickie Orozco MD VQ scan was negative for PE. CT did show some signs of cholelithiasis as well as diffuse gallbladder wall thickening, patient on exam does have some right upper quadrant tenderness and there is concern for underlying cholecystitis or biliary colic as well. Cardiac enzymes are negative. At this point, my plan would also be to have her evaluated for chest pain as well. Case is discussed with Dr. Jay for admission. Data Data Last Documented VS Vital Signs Date Time Temp Pulse Resp B/P (MAP) Pulse Ox O2 Delivery O2 Flow Rate FiO2 08/23/17 10:58 80 18 128/62 (84) 96 Room Air 08/23/17 02:29 98.6 Orders Orders Electrocardiogram (08/23/17 04:29) B-Type Natriuretic Peptide (08/23/17 04:29) Ckmb (Isoenzyme) Profile (08/23/17 04:29) Complete Blood Count With Diff (08/23/17 04:29) Comprehensive Metabolic Panel (08/23/17 04:29) D-Dimer (08/23/17 04:29) Magnesium (Mg) (08/23/17 04:29) Prothrombin Time / Inr (Pt) (08/23/17 04:29) Act Partial Throm Time (Ptt) (08/23/17 04:29) Troponin I (08/23/17 04:29) Chest, Single Ap (08/23/17 04:29) Ecg Monitoring (08/23/17 04:29) Bilateral Bp Monitoring (08/23/17 04:29) Iv Access Insert/Monitor (08/23/17 04:29) Oximetry (08/23/17 04:29) Oxygen Administration (08/23/17 04:29) Sodium Chloride 0.9% Flush (Ns Flush) (08/23/17 04:30) Westergren Sedimentation Rate (08/23/17 04:29) Al-Mag Hy-Si 40-40-4 Mg/Ml Liq (Mag-Al P (08/23/17 06:15) Lidocaine 2% Viscous (Xylocaine 2% Visco (08/23/17 06:15) Nitroglycerin 2% Oint (Nitroglycerin 2% (08/23/17 06:15) Furosemide Inj (Lasix Inj) (08/23/17 06:15) Troponin I (08/23/17 06:21) Ventilation & Perfusion Scan (08/23/17 ) Ct Abd/Pel W/O Iv Contrast (08/23/17 ) Vascular Access Team Consult/P PRN (08/23/17 07:50) Vascular Poc Ultrasound (08/23/17 ) Comprehensive Metabolic Panel (08/23/17 07:54) Urinalysis - C+S If Indicated (08/23/17 07:54) Lipase (08/23/17 07:54) Admit Order (Ed Use Only) (08/23/17 11:56) Labs Laboratory Tests Test 08/23/17 04:29 08/23/17 05:00 08/23/17 06:40 Prothrombin Time 12.8 SEC Prothromb Time International Ratio 1.3 RATIO Activated Partial Thromboplast Time 28.2 SEC D-Dimer Quantitative (PE/DVT) 1.16 MG/L FEU White Blood Count 3.6 TH/MM3 Red Blood Count 4.67 MIL/MM3 Hemoglobin 13.5 GM/DL Hematocrit 41.3 % Mean Corpuscular Volume 88.5 FL Mean Corpuscular Hemoglobin 29.0 PG Mean Corpuscular Hemoglobin Concent 32.8 % Red Cell Distribution Width 14.1 % Platelet Count 105 TH/MM3 Mean Platelet Volume 11.2 FL Neutrophils (%) (Auto) 43.2 % Lymphocytes (%) (Auto) 38.9 % Monocytes (%) (Auto) 13.5 % Eosinophils (%) (Auto) 3.8 % Basophils (%) (Auto) 0.6 % Neutrophils # (Auto) 1.6 TH/MM3 Lymphocytes # (Auto) 1.4 TH/MM3 Monocytes # (Auto) 0.5 TH/MM3 Eosinophils # (Auto) 0.1 TH/MM3 Basophils # (Auto) 0.0 TH/MM3 CBC Comment DIFF FINAL Differential Comment Erythrocyte Sedimentation Rate 19 mm/hr Blood Urea Nitrogen 10 MG/DL Creatinine 0.58 MG/DL Random Glucose 136 MG/DL Total Protein 7.8 GM/DL Albumin 2.7 GM/DL Calcium Level 8.3 MG/DL Magnesium Level 1.9 MG/DL Alkaline Phosphatase 279 U/L Aspartate Amino Transf (AST/SGOT) 149 U/L Alanine Aminotransferase (ALT/SGPT) 134 U/L Total Bilirubin 2.6 MG/DL Sodium Level 139 MEQ/L Potassium Level 4.2 MEQ/L Chloride Level 106 MEQ/L Carbon Dioxide Level 27.2 MEQ/L Anion Gap 6 MEQ/L Estimat Glomerular Filtration Rate 129 ML/MIN Total Creatine Kinase 95 U/L Troponin I LESS THAN 0.02 NG/ML LESS THAN 0.02 NG/ML B-Type Natriuretic Peptide 58 PG/ML MDM Medical Record Reviewed: Yes Supervised Visit with RAÚL: No Diagnosis Primary Impression: CHF (congestive heart failure) Qualified Codes: I50.9 - Heart failure, unspecified Additional Impression: Atypical chest pain Admitting Information Admitting Physician Requests: Leonie Conteh MD Aug 23, 2017 12:03
--- NOTE | 2017-08-23 12:06 | HHI.HP ---
HPI Service [facility] Primary Care Physician Herbie Rizo DO Admission Diagnosis Diagnoses: Chief Complaint: Chest pain Travel History International Travel<30 Days: No Contact w/Intl Traveler <30 Da: No Traveled to Known Affected Are: No History of Present Illness This is a pleasant 57 y/o Female with substernal sharp pain worse with deep breath, The Patient has not had this type of pain before, denies having recent upper respiratory infection.. Patient has a slight cough with frothy sputum production. Patient denies any fever chills sweats. Patient does note mild increased discomfort and shortness of breath with lying flat. as we know she has OA, Asthma Anxiety disorder, Depression, CAD, DM II, Hepatitis C, Esophageal Varices, Herniated Disc, Hypertension, spinal Stenosis, COPD, chronic pain syndrome. As per patient she woke up this morning with chest pain, at 1:30 AM, on Right parasternal area, 10/10 in intensity with Shortness of breath, non radiated as a sharp sensation, reproducible on palpation. at the time of evaluation she has no chest pain no shortness of breath but has productive cough of white to yellow sputum, discussed with ER physician concerned about Gallbladder that was evaluated one year ago by Doctor Raf Aponte one year ago and recommended for no procedure, but the patient has increased LFTs and Cholelithiasis on new CT abdomen and Pelvis, she is been placed NPO and asked for General Surgery consult. will continue to trend her Cardiac enzymes. negative times two. Review of Systems Constitutional: DENIES: Fever, Chills, Change in appetite Endocrine: DENIES: Heat/cold intolerance Eyes: DENIES: Blurred vision, Eye pain Cardiovascular: COMPLAINS OF: Chest pain Gastrointestinal: COMPLAINS OF: Abdominal pain Except as stated in HPI: all other systems reviewed are Neg Past Family Social History Past Medical History OA Asthma Anxiety disorder Depression CAD DM II Hepatitis C Esophageal Varices herniated Disc Hypertension Spinal Stenosis COPD Chronic pain syndrome and narcotic dependence Past Surgical History Esophageal banding Tubal ligation Reported Medications Reported Meds & Active Scripts Active Ventolin Hfa 18 GM Inh (Albuterol Sulfate) 90 Mcg/Act Aer 2 Puff INH Q4H PRN Reported Fentanyl Patch 72 HR (Fentanyl) 25 Mcg/Hr Patch 25 Mcg T-DERMAL Q72H Vitamin D-1000 (Cholecalciferol) 1,000 Unit Tab 1,000 Units PO DAILY Lasix (Furosemide) 40 Mg Tab 40 Mg PO DAILY Klor-Con 10 (Potassium Chloride) 10 Meq Tab 10 Meq PO DAILY Flexeril (Cyclobenzaprine HCl) 10 Mg Tab 10 Mg PO TID Atenolol 25 Mg Tab 25 Mg PO DAILY Allergies: Coded Allergies: acetaminophen (Unverified Allergy, Severe, Nausea/Vomiting, 08/23/17) ibuprofen (Unverified Allergy, Severe, 08/23/17) latex (Unverified Allergy, Severe, rash and swelling, 08/23/17) metformin (Unverified Allergy, Severe, 08/23/17) Active Ordered Medications Current Medications Medications (Trade) Dose Ordered Sig/Laura Route Start Time Stop Time Status Last Admin (NS Flush) 2 ml UNSCH PRN IV FLUSH 08/23/17 12:15 (NS Flush) 2 ml BID IV FLUSH 08/23/17 21:00 (Zofran Inj) 4 mg Q6H PRN IVP 08/23/17 12:15 (Narcan Inj) 0.4 mg UNSCH PRN IV PUSH 08/23/17 12:15 (Senokot) 17.2 mg Q12H PRN PO 08/23/17 12:15 (Dulcolax Supp) 10 mg DAILY PRN RECTAL 08/23/17 12:15 (Lactulose Liq) 30 ml DAILY PRN PO 08/23/17 12:15 (Tenormin) 25 mg DAILY PO 08/24/17 09:00 (Vitamin D3) 1,000 units DAILY PO 08/24/17 09:00 (Flexeril) 10 mg TID PO 08/23/17 13:00 (Lasix) 40 mg DAILY PO 08/24/17 09:00 (KCl) 10 meq DAILY PO 08/24/17 09:00 Family History Two brothers with Hypertension Social History Lives with her Daughter and denies any Toxic habits. Physical Exam Vital Signs Vital Signs Date Time Temp Pulse Resp B/P (MAP) Pulse Ox O2 Delivery O2 Flow Rate FiO2 08/23/17 10:58 80 18 128/62 (84) 96 Room Air 08/23/17 04:34 98 Room Air 08/23/17 02:29 98.6 83 16 131/81 (98) 98 Physical Exam GENERAL: Awake alert oriented 3 no acute distress vital signs afebrile normal and stable. Patient is morbidly obese. SKIN: Warm and dry. Color is normal diaphoresis cyanosis or pallor HEAD: Atraumatic. Normocephalic. EYES: Pupils equal and round. No scleral icterus. No injection or drainage. ENT: No nasal bleeding or discharge. Mucous membranes pink and moist. NECK: Trachea midline. No JVD. Supple nontender full range of motion CARDIOVASCULAR: Regular rate and rhythm. S1-S2 no murmurs rubs or gallops RESPIRATORY: No accessory muscle use. Decreased breath sounds bilateral no wheezing or crackles. GASTROINTESTINAL: Abdomen soft, non-tender, nondistended. Hepatic and splenic margins not palpable. MUSCULOSKELETAL: Edema 3+. NEUROLOGICAL: Awake and alert. No obvious cranial nerve deficits. Motor grossly within normal limits. Five out of 5 muscle strength in the arms and legs. Normal speech. PSYCHIATRIC: Appropriate mood and affect; insight and judgment normal. Laboratory Laboratory Tests Test 08/23/17 04:29 08/23/17 05:00 08/23/17 06:40 Prothrombin Time 12.8 Prothromb Time International Ratio 1.3 Activated Partial Thromboplast Time 28.2 D-Dimer Quantitative (PE/DVT) 1.16 White Blood Count 3.6 Red Blood Count 4.67 Hemoglobin 13.5 Hematocrit 41.3 Mean Corpuscular Volume 88.5 Mean Corpuscular Hemoglobin 29.0 Mean Corpuscular Hemoglobin Concent 32.8 Red Cell Distribution Width 14.1 Platelet Count 105 Mean Platelet Volume 11.2 Neutrophils (%) (Auto) 43.2 Lymphocytes (%) (Auto) 38.9 Monocytes (%) (Auto) 13.5 Eosinophils (%) (Auto) 3.8 Basophils (%) (Auto) 0.6 Neutrophils # (Auto) 1.6 Lymphocytes # (Auto) 1.4 Monocytes # (Auto) 0.5 Eosinophils # (Auto) 0.1 Basophils # (Auto) 0.0 CBC Comment DIFF FINAL Differential Comment Erythrocyte Sedimentation Rate 19 Blood Urea Nitrogen 10 Creatinine 0.58 Random Glucose 136 Total Protein 7.8 Albumin 2.7 Calcium Level 8.3 Magnesium Level 1.9 Alkaline Phosphatase 279 Aspartate Amino Transf (AST/SGOT) 149 Alanine Aminotransferase (ALT/SGPT) 134 Total Bilirubin 2.6 Sodium Level 139 Potassium Level 4.2 Chloride Level 106 Carbon Dioxide Level 27.2 Anion Gap 6 Estimat Glomerular Filtration Rate 129 Total Creatine Kinase 95 Troponin I LESS THAN 0.02 LESS THAN 0.02 B-Type Natriuretic Peptide 58 Result Diagram: 08/23/17 0500 08/23/17 0500 Imaging Last Impressions Chest X-Ray 08/23/17 0429 Signed Impressions: Service Date/Time: Wednesday, August 23, 2017 04:50 - CONCLUSION: Mild pulmonary venous congestion. True Ocampo MD Lung Scan-V Nuclear Medicine 08/23/17 0000 Signed Impressions: Service Date/Time: Wednesday, August 23, 2017 09:22 - CONCLUSION: No evidence of pulmonary embolus. Rickie Orozco MD Abdomen/Pelvis CT 08/23/17 0000 Signed Impressions: Service Date/Time: Wednesday, August 23, 2017 08:01 - CONCLUSION: 1. Diffusely nodular contour liver capsule again seen indicating cirrhosis. No gross focal mass identified. 2. Cholelithiasis and nonspecific diffuse gallbladder wall thickening. 3. Evidence of portal venous hypertension with left upper quadrant varices. Mild splenomegaly. 4. Left lower lobe bronchiectasis and slight increase in size of 2 cm left lung base nodule adjacent to the bronchiectasis. MD Leland Sethii VTE Risk Assessment Caprini VTE Risk Assessment: No/Low Risk (score <= 1) Caprini Risk Assessment Model Point Value = 1 Point Value = 2 Point Value = 3 Point Value = 5 Age 41-60 Minor surgery BMI > 25 kg/m2 Swollen legs Varicose veins or History of unexplained or recurrent spontaneous Oral contraceptives or hormone replacement Sepsis (< 1 month) Serious lung disease, including pneumonia (< 1 month) Abnormal pulmonary function Acute myocardial infarction Congestive heart failure (< 1 month) History of inflammatory bowel disease Medical patient at bed rest Age 61-74 Arthroscopic surgery Major open surgery (> 45 min) Laparoscopic surgery (> 45 min) Malignancy Confined to bed (> 72 hours) Immobilizing plaster cast Central venous access Age >= 75 History of VTE Family history of VTE Factor V Leiden Prothrombin [id number] Lupus anticoagulant Anticardiolipin antibodies Elevated serum homocysteine Heparin-induced thrombocytopenia Other congenital or acquired thrombophilia Stroke (< 1 month) Elective arthroplasty Hip, pelvis, or leg fracture Acute spinal cord injury (< 1 month) Prophylaxis Regimen Total Risk Factor Score Risk Level Prophylaxis Regimen 0-1 Low Early ambulation 2 Moderate Order ONE of the following: *Sequential Compression Device (SCD) *Heparin 5000 units SQ BID 3-4 Higher Order ONE of the following medications: *Heparin 5000 units SQ TID *Enoxaparin/Lovenox 40 mg SQ daily (WT < 150 kg, CrCl > 30 mL/min) *Enoxaparin/Lovenox 30 mg SQ daily (WT < 150 kg, CrCl > 10-29 mL/min) *Enoxaparin/Lovenox 30 mg SQ BID (WT < 150 kg, CrCl > 30 mL/min) AND/OR *Sequential Compression Device (SCD) 5 or more Highest Order ONE of the following medications: *Heparin 5000 units SQ TID (Preferred with Epidurals) *Enoxaparin/Lovenox 40 mg SQ daily (WT < 150 kg, CrCl > 30 mL/min) *Enoxaparin/Lovenox 30 mg SQ daily (WT < 150 kg, CrCl > 10-29 mL/min) *Enoxaparin/Lovenox 30 mg SQ BID (WT < 150 kg, CrCl > 30 mL/min) AND *Sequential Compression Device (SCD) Assessment and Plan Assessment and Plan 1. Atypical chest pain, reproducible on palpation of the Rib cage, will continue Cardiac enzymes, cardiac monitoring at this time totally asymptomatic, doubt Cardiac pathology, negative two sets of Cardiac enzymes. Morphine as needed for pain. 2. Cirrhosis chronic pathology with Leg edema continue diuretics. add Spironolactone 25 mg daily. 3. Hepatitis C by history 4. Morbid Obesity strongly recommended diet and exercise 5. Bronchitis/COPD not found acute pathology on CXR, will continue Bronchodilator, Mucolytic and Incentive spirometry 6. Depression Anxiety disorder stable at this time 7. DM II continue sliding scale at this time NPO awaiting for final disposition by General Surgery. 8. Hypertension controlled will continue Home medicines 9. Chronic pain syndrome stable at this time. DVT prophylaxis with SCDs awaiting disposition by General Surgery following Cardiac enzymes General Surgery evaluation Gastric protection. Code Status Full Code. Discussed Condition With Patient and ER physician. Physician Certification 2 Midnight Certification Type: Admission for Inpatient Services Order for Inpatient Services The services are ordered in accordance with Medicare regulations or non- Medicare payer requirements, as applicable. In the case of services not specified as inpatient-only, they are appropriately provided as inpatient services in accordance with the 2-midnight benchmark. Estimated LOS (days): 1 days is the estimated time the patient will need to remain in the hospital, assuming treatment plan goals are met and no additional complications. Post-Hospital Plan: Not yet determined Cameron Vicente MD Aug 23, 2017 12:06
[2017-08-23] MEDS ORDERED: LACTULOSE SYRUP 20 GM/30 ML CUP PO PRN (12:15)
[2017-08-23] MEDS ORDERED: NALOXONE HCL 0.4 MG/ML AMP IV PUSH PRN (12:15)
[2017-08-23] MEDS ORDERED: ONDANSETRON HCL 4 MG/2 ML VIAL IVP PRN (12:15)
[2017-08-23] MEDS ORDERED: ACETAMINOPHEN 325 MG TAB PO PRN (12:15)
[2017-08-23] MEDS ORDERED: BISACODYL 10 MG SUPP RECTAL PRN (12:15)
[2017-08-23] MEDS ORDERED: SODIUM CHLORIDE 0.9% FLUSH 10 ML FLUSH IV FLUSH PRN (12:15)
[2017-08-23] MEDS ORDERED: SENNOSIDES 8.6 MG TAB PO PRN (12:15)
[2017-08-23] MEDS ORDERED: MORPHINE SULFATE 2 MG/ML INJ IV PUSH ONE (12:15)
[2017-08-23] MEDS: CYCLOBENZAPRINE HCL 10 MG TAB PO SCH ×2 (13:00→17:43)
--- NOTE | 2017-08-23 15:09 | EKG ---
Date Performed: 08/23/2017 Time Performed: 04:23:05 PTAGE: 57 years EKG: Sinus rhythm VOLTAGE CRITERIA FOR LVH ABNORMAL ECG PREVIOUS TRACING 10/02/16 DOCTOR: Myles Ricketts Interpretating Date/Time 08/23/2017 15:08:14
[2017-08-23] MEDS: FAMOTIDINE 20 MG/2 ML VIAL IV PUSH SCH (15:45)
[2017-08-23] MEDS: RESP: ALBUTEROL 2.5 MG/IPRATROPIUM 0.5 MG NEB (SCH) NEB ×2 (15:49→19:36)
[2017-08-23] MEDS: SUCRALFATE 1 GM TAB PO SCH ×2 (17:43→20:33)
--- NOTE | 2017-08-23 18:33 | MB ---
cc: JIMMY WASHINGTON MD DATE OF CONSULTATION 08/23/17 REASON FOR CONSULTATION Abdominal pain. HISTORY OF PRESENT ILLNESS This pleasant 57-year-old black lady presents to the hospital with substernal chest pain. Apparently, the patient has had a more pain lately and has gotten admitted. In the process of workup, she was found to have a contracted gallbladder and question arises about the significance of this finding. PAST MEDICAL HISTORY Complex. 1. Diabetes mellitus, 2. Hepatitis C, 3. Hypertension 4. Esophageal varices 5. GI bleed 6. Banding of the same 7. Known portal hypertension 8. Chronic elevation of LFTs and bilirubin. The patient is now comfortably lying in bed. PAST SURGICAL HISTORY None except for banding of the varices. MEDICATIONS Can be found on the record. REVIEW OF SYSTEMS Generally normal. SOCIAL HISTORY The patient does not smoke, does not drink, does not use any substances. She states that she contracted hepatitis C when she was . PHYSICAL EXAMINATION GENERAL: A pleasant 57-year-old lady in no acute distress. HEENT: Normocephalic. No trauma to the head. Pupils equally reactive. Extraocular muscles intact. Sclerae are nonicteric. The patient's bilirubin is 2.6 and usually this is not visible on sclerae unless the bilirubin goes over 4-5. NECK: Supple, bilateral carotid pulses. No bruits. CHEST: Bilateral breath sounds. Mild expiratory wheezing. HEART: Regular rhythm. ABDOMEN: Obese, soft. Active bowel sounds. On palpation the patient is slightly tender in epigastrium but no rebound or guarding. No right upper quadrant tenderness at this point. Liver is actually palpated with obtuse edge, but it is somewhat hard to palpate due to the patient's body habitus. No other masses. PELVIS: Stable. EXTREMITIES: Within normal limits. BACK: Normal. IMPRESSION A 57-year-old lady with multiple admissions for various respiratory issues and abdominal pain. At this point, looking at this gallbladder the patient does have a contracted small gallbladder which is clearly not causing any problems. However, the patient does have left-sided portal hypertension with enlarged spleen and varices and nodular cirrhotic liver, pressure and tension on the Marleni's capsule will cause pain in patients with cirrhosis and I am not sure how much of portal hypertension contributes to the same. This patient clearly does not need laparoscopic cholecystectomy and every effort should be made not to operate on this patient for any reasons with portal hypertension because bleeding from this could be catastrophic. At this point, she will not need anything from my end. Thank you much for referral. Critical care 38 minutes. Jimmy PINTO/ /5:48 PM /6:12 PM
[2017-08-23 18:43] LABS: ALBUMIN 2.7 GM/DL (3.4-5.0); AST (GOT) 137 U/L (15-37); BICARBONATE 27.9 MEQ/L (21.0-32.0); BLOOD UREA NITROGEN 11 MG/DL (7-18); CALCIUM 8.5 MG/DL (8.5-10.1); CHLORIDE 106 MEQ/L (98-107); CREATININE 0.61 MG/DL (0.50-1.00); GLOMERULAR FILTRATION RATE 121 ML/MIN (>89); GLUCOSE,RANDOM 87 MG/DL (74-106); LIPASE 152 U/L (73-393); SODIUM (NA) 141 MEQ/L (136-145)
[2017-08-23 18:44] LABS: ALT (GPT) 128 U/L (10-53)
[2017-08-23 18:46] LABS: ALKALINE PHOSPHATASE 254 U/L (45-117); TOTAL BILIRUBIN ADULT 3.1 MG/DL (0.2-1.0); TOTAL PROTEIN 7.3 GM/DL (6.4-8.2)
[2017-08-23 18:49] LABS: TROPONIN I LESS THAN 0.02 NG/ML (0.02-0.05)
[2017-08-23] MEDS: guaiFENesin E.R. 600 MG TAB PO SCH (20:34)
[2017-08-23] MEDS: SODIUM CHLORIDE 0.9% FLUSH 10 ML FLUSH IV FLUSH SCH (20:34)
[2017-08-23] MEDS ORDERED: MORPHINE SULFATE 2 MG/ML INJ IV PUSH PRN (21:00)
[2017-08-24] VITALS: BP 132/78; PULSE 96; PULSE 99; RESP 17; TEMP 98.1; O2SAT 96
[2017-08-24] MEDS: RESP: ALBUTEROL 2.5 MG/IPRATROPIUM 0.5 MG NEB (SCH) NEB ×4 (00:29→11:39)
[2017-08-24 01:23] LABS: TROPONIN I LESS THAN 0.02 NG/ML (0.02-0.05)
[2017-08-24] MEDS: FAMOTIDINE 20 MG/2 ML VIAL IV PUSH SCH ×2 (03:14→13:23)
[2017-08-24 04:00] VITALS: BP 131/64; PULSE 100; PULSE 95; RESP 17; TEMP 98.4; O2SAT 95
[2017-08-24 08:00] VITALS: BP 140/89; PULSE 100; PULSE 109; RESP 20; TEMP 98.6; O2SAT 98
[2017-08-24 08:09] LABS: AUTOMATED NEUTROPHIL # 1.5 TH/MM3 (1.8-7.7); BASOPHIL % 0.9 % (0.0-2.0); EOSINOPHIL # 0.1 TH/MM3 (0-0.4); EOSINOPHIL % 3.2 % (0.0-4.0); HEMATOCRIT 37.6 % (35.0-46.0); HEMOGLOBIN 12.3 GM/DL (11.6-15.3); LYMPH % 39.3 % (9.0-44.0); LYMPHOCYTE # 1.4 TH/MM3 (1.0-4.8); MEAN CELL VOLUME 90.5 FL (80.0-100.0); MEAN CORPUSCULAR HEMOGLOBIN 29.5 PG (27.0-34.0); MEAN CORPUSCULAR HGB CONC 32.6 % (32.0-36.0); MEAN PLATELET VOLUME 11.2 FL (7.0-11.0); MONO % 16.7 % (0.0-8.0); MONOCYTE # 0.6 TH/MM3 (0-0.9); NEUT % 39.9 % (16.0-70.0); PLATELET COUNT 88 TH/MM3 (150-450); RED BLOOD COUNT 4.16 MIL/MM3 (4.00-5.30); RED CELL DISTRIBUTION WIDTH 14.4 % (11.6-17.2); WHITE BLOOD COUNT 3.7 TH/MM3 (4.0-11.0)
[2017-08-24 08:10] VITALS: O2SAT 97
[2017-08-24] MEDS: guaiFENesin E.R. 600 MG TAB PO SCH (08:12)
[2017-08-24] MEDS: SODIUM CHLORIDE 0.9% FLUSH 10 ML FLUSH IV FLUSH SCH (08:13)
[2017-08-24] MEDS: CYCLOBENZAPRINE HCL 10 MG TAB PO SCH ×2 (08:13→11:32)
[2017-08-24] MEDS: SUCRALFATE 1 GM TAB PO SCH ×2 (08:13→11:32)
[2017-08-24 08:32] LABS: ALBUMIN 2.5 GM/DL (3.4-5.0); AST (GOT) 128 U/L (15-37); BICARBONATE 26.1 MEQ/L (21.0-32.0); BLOOD UREA NITROGEN 13 MG/DL (7-18); CALCIUM 8.3 MG/DL (8.5-10.1); CHLORIDE 105 MEQ/L (98-107); CREATININE 0.64 MG/DL (0.50-1.00); GLOMERULAR FILTRATION RATE 115 ML/MIN (>89); GLUCOSE,RANDOM 147 MG/DL (74-106); LIPASE 177 U/L (73-393); SODIUM (NA) 140 MEQ/L (136-145)
[2017-08-24 08:37] LABS: ALKALINE PHOSPHATASE 244 U/L (45-117); ALT (GPT) 116 U/L (10-53); TOTAL BILIRUBIN ADULT 2.7 MG/DL (0.2-1.0)
[2017-08-24] MEDS ORDERED: CHOLECALCIFEROL (VIT D3) 1000 UNIT TAB PO SCH (09:00)
[2017-08-24] MEDS ORDERED: POTASSIUM CHLORIDE 10 MEQ CONTROLLED RELEASE TAB PO SCH (09:00)
[2017-08-24] MEDS ORDERED: ATENOLOL 25 MG TAB PO SCH (09:00)
[2017-08-24] MEDS ORDERED: FUROSEMIDE 40 MG TAB PO SCH (09:00)
[2017-08-24 12:00] VITALS: BP 131/60; PULSE 76; PULSE 98; RESP 20; TEMP 97.8; O2SAT 98
--- NOTE | 2017-08-24 12:48 | HHI.PR ---
Subjective Remarks This is a pleasant 57 y/o Female with substernal sharp pain worse with deep breath, The Patient has not had this type of pain before, denies having recent upper respiratory infection.. Patient has a slight cough with frothy sputum production. Patient denies any fever chills sweats. Patient does note mild increased discomfort and shortness of breath with lying flat. as we know she has OA, Asthma Anxiety disorder, Depression, CAD, DM II, Hepatitis C, Esophageal Varices, Herniated Disc, Hypertension, spinal Stenosis, COPD, chronic pain syndrome. As per patient she woke up this morning with chest pain, at 1:30 AM, on Right parasternal area, 10/10 in intensity with Shortness of breath, non radiated as a sharp sensation, reproducible on palpation. at the time of evaluation she has no chest pain no shortness of breath but has productive cough of white to yellow sputum, discussed with ER physician concerned about Gallbladder that was evaluated one year ago by Doctor Raf Aponte one year ago and recommended for no procedure, but the patient has increased LFTs and Cholelithiasis on new CT abdomen and Pelvis, she is been placed NPO and asked for General Surgery consult. will continue to trend her Cardiac enzymes. negative times two. 1-14 seen by surgery- no surgery offered still has some cough dw RN AND PT TROPONINS ALL NEGATIVE DC TO HOME TODAY FOLLOW UP WITH PCP Objective Vitals Vital Signs Date Time Temp Pulse Resp B/P (MAP) Pulse Ox O2 Delivery O2 Flow Rate FiO2 08/24/17 09:26 Room Air 08/24/17 08:10 97 21 08/24/17 08:00 109 08/24/17 08:00 98.6 100 20 140/89 (106) 98 08/24/17 04:00 98.4 100 17 131/64 (86) 95 08/24/17 04:00 95 08/24/17 04:00 Room Air 08/24/17 00:00 96 08/24/17 00:00 98.1 99 17 132/78 (96) 96 08/24/17 00:00 Room Air 08/23/17 20:00 97.5 99 17 139/71 (93) 96 08/23/17 20:00 83 08/23/17 19:39 98 21 08/23/17 16:00 97.4 72 20 142/68 (92) 92 08/23/17 16:00 77 I/O 08/23/17 08/23/17 08/23/17 08/24/17 08/24/17 08/24/17 07:00 15:00 23:00 07:00 15:00 23:00 Intake Total 0 ml 650 ml Balance 0 ml 650 ml Intake Oral 0 ml 650 ml # Voids 0 6 # Bowel Movements 0 4 Result Diagram: 08/24/17 0620 08/24/17 0620 Other Results Laboratory Tests Test 08/23/17 04:29 08/23/17 05:00 08/23/17 06:40 08/23/17 17:18 Prothrombin Time 12.8 SEC Prothromb Time International Ratio 1.3 RATIO Activated Partial Thromboplast Time 28.2 SEC D-Dimer Quantitative (PE/DVT) 1.16 MG/L FEU White Blood Count 3.6 TH/MM3 Red Blood Count 4.67 MIL/MM3 Hemoglobin 13.5 GM/DL Hematocrit 41.3 % Mean Corpuscular Volume 88.5 FL Mean Corpuscular Hemoglobin 29.0 PG Mean Corpuscular Hemoglobin Concent 32.8 % Red Cell Distribution Width 14.1 % Platelet Count 105 TH/MM3 Mean Platelet Volume 11.2 FL Neutrophils (%) (Auto) 43.2 % Lymphocytes (%) (Auto) 38.9 % Monocytes (%) (Auto) 13.5 % Eosinophils (%) (Auto) 3.8 % Basophils (%) (Auto) 0.6 % Neutrophils # (Auto) 1.6 TH/MM3 Lymphocytes # (Auto) 1.4 TH/MM3 Monocytes # (Auto) 0.5 TH/MM3 Eosinophils # (Auto) 0.1 TH/MM3 Basophils # (Auto) 0.0 TH/MM3 CBC Comment DIFF FINAL Differential Comment Erythrocyte Sedimentation Rate 19 mm/hr Blood Urea Nitrogen 10 MG/DL 11 MG/DL Creatinine 0.58 MG/DL 0.61 MG/DL Random Glucose 136 MG/DL 87 MG/DL Total Protein 7.8 GM/DL 7.3 GM/DL Albumin 2.7 GM/DL 2.7 GM/DL Calcium Level 8.3 MG/DL 8.5 MG/DL Magnesium Level 1.9 MG/DL Alkaline Phosphatase 279 U/L 254 U/L Aspartate Amino Transf (AST/SGOT) 149 U/L 137 U/L Alanine Aminotransferase (ALT/SGPT) 134 U/L 128 U/L Total Bilirubin 2.6 MG/DL 3.1 MG/DL Sodium Level 139 MEQ/L 141 MEQ/L Potassium Level 4.2 MEQ/L 3.8 MEQ/L Chloride Level 106 MEQ/L 106 MEQ/L Carbon Dioxide Level 27.2 MEQ/L 27.9 MEQ/L Anion Gap 6 MEQ/L 7 MEQ/L Estimat Glomerular Filtration Rate 129 ML/MIN 121 ML/MIN Total Creatine Kinase 95 U/L 59 U/L Troponin I LESS THAN 0.02 NG/ML LESS THAN 0.02 NG/ML LESS THAN 0.02 NG/ML B-Type Natriuretic Peptide 58 PG/ML Lipase 152 U/L Test 08/24/17 00:14 08/24/17 06:20 Total Creatine Kinase 54 U/L Troponin I LESS THAN 0.02 NG/ML White Blood Count 3.7 TH/MM3 Red Blood Count 4.16 MIL/MM3 Hemoglobin 12.3 GM/DL Hematocrit 37.6 % Mean Corpuscular Volume 90.5 FL Mean Corpuscular Hemoglobin 29.5 PG Mean Corpuscular Hemoglobin Concent 32.6 % Red Cell Distribution Width 14.4 % Platelet Count 88 TH/MM3 Mean Platelet Volume 11.2 FL Neutrophils (%) (Auto) 39.9 % Lymphocytes (%) (Auto) 39.3 % Monocytes (%) (Auto) 16.7 % Eosinophils (%) (Auto) 3.2 % Basophils (%) (Auto) 0.9 % Neutrophils # (Auto) 1.5 TH/MM3 Lymphocytes # (Auto) 1.4 TH/MM3 Monocytes # (Auto) 0.6 TH/MM3 Eosinophils # (Auto) 0.1 TH/MM3 Basophils # (Auto) 0.0 TH/MM3 CBC Comment AUTO DIFF Differential Comment AUTO DIFF CONFIRMED Platelet Estimate LOW Platelet Morphology Comment ENLARGED Blood Urea Nitrogen 13 MG/DL Creatinine 0.64 MG/DL Random Glucose 147 MG/DL Total Protein 7.0 GM/DL Albumin 2.5 GM/DL Calcium Level 8.3 MG/DL Alkaline Phosphatase 244 U/L Aspartate Amino Transf (AST/SGOT) 128 U/L Alanine Aminotransferase (ALT/SGPT) 116 U/L Total Bilirubin 2.7 MG/DL Sodium Level 140 MEQ/L Potassium Level 3.2 MEQ/L Chloride Level 105 MEQ/L Carbon Dioxide Level 26.1 MEQ/L Anion Gap 9 MEQ/L Estimat Glomerular Filtration Rate 115 ML/MIN Lipase 177 U/L Imaging Last Impressions Chest X-Ray 08/23/17 0429 Signed Impressions: Service Date/Time: Wednesday, August 23, 2017 04:50 - CONCLUSION: Mild pulmonary venous congestion. True Ocampo MD Lung Scan-VQ Nuclear Medicine 08/23/17 0000 Signed Impressions: Service Date/Time: Wednesday, August 23, 2017 09:22 - CONCLUSION: No evidence of pulmonary embolus. Rickie Orozco MD Abdomen/Pelvis CT 08/23/17 0000 Signed Impressions: Service Date/Time: Wednesday, August 23, 2017 08:01 - CONCLUSION: 1. Diffusely nodular contour liver capsule again seen indicating cirrhosis. No gross focal mass identified. 2. Cholelithiasis and nonspecific diffuse gallbladder wall thickening. 3. Evidence of portal venous hypertension with left upper quadrant varices. Mild splenomegaly. 4. Left lower lobe bronchiectasis and slight increase in size of 2 cm left lung base nodule adjacent to the bronchiectasis. Rickie Orozco MD Objective Remarks GENERAL: An cooperative morbidly obese AWAKE ALERT AND ORIENTED X3 TALKATIVE AND COOPERATIVE SKIN: Warm and dry. HEAD: Atraumatic. Normocephalic. EYES: Pupils equal and round. No scleral icterus. No injection or drainage. EOMI ENT: No nasal bleeding or discharge. Mucous membranes pink and moist. TONGUE MIDLINE NECK: Trachea midline. No JVD. SUPPLE CARDIOVASCULAR: Regular rate and rhythm. S1, S2 NO S3 OR S4 RESPIRATORY: No accessory muscle use. Clear to auscultation. Breath sounds equal bilaterally. GASTROINTESTINAL: Abdomen soft, non-tender, nondistended. Hepatic and splenic margins not palpable. OBESE MUSCULOSKELETAL: Extremities without clubbing, cyanosis, or edema. No obvious deformities. NEUROLOGICAL: Awake and alert. No obvious cranial nerve deficits. Motor grossly within normal limits. 4 out of 5 muscle strength in the arms and legs. Normal speech. PSYCHIATRIC: Appropriate mood and affect; insight and judgment normal. Procedures NONE Medications and IVs Current Medications Sodium Chloride (NS Flush) 2 ml UNSCH PRN IVF FLUSH AFTER USING IV ACCESS; Start 08/23/17 at 04:30; Stop 08/23/17 at 12:25; Status DC Al Hydrox/Mg Hydrox/Simethicone (Mag-Al Plus Susp Liq) 30 ml ONCE ONCE PO Last administered on 08/23/17at 06:45; Start 08/23/17 at 06:15; Stop 08/23/17 at 06:16; Status DC Lidocaine HCl (Xylocaine 2% Viscous) 15 ml BOLUS ONCE SWISH-SWAL Last administered on 08/23/17at 06:45; Start 08/23/17 at 06:15; Stop 08/23/17 at 06:16 ; Status DC Nitroglycerin (Nitroglycerin 2% Oint) 1 inch ONCE ONCE TOPICAL Last administered on 08/23/17at 06:45; Start 08/23/17 at 06:15; Stop 08/23/17 at 06:16 ; Status DC Furosemide (Lasix Inj) 20 mg ONCE ONCE IV PUSH Last administered on 08/23/17at 06:45; Start 08/23/17 at 06:15; Stop 08/23/17 at 06:16; Status DC Sodium Chloride (NS Flush) 2 ml UNSCH PRN IV FLUSH FLUSH AFTER USING IV ACCESS ; Start 08/23/17 at 12:15 Sodium Chloride (NS Flush) 2 ml BID IV FLUSH Last administered on 08/24/17at 08: 13; Start 08/23/17 at 21:00 Acetaminophen (Tylenol) 650 mg Q4H PRN PO TEMP > 100.4; Start 08/23/17 at 12:15 ; Stop 08/23/17 at 12:32; Status DC Ondansetron HCl (Zofran Inj) 4 mg Q6H PRN IVP NAUSEA OR VOMITING; Start at 12:15 Naloxone HCl (Narcan Inj) 0.4 mg UNSCH PRN IV PUSH SEE LABEL COMMENTS; Start at 12:15 Sennosides (Senokot) 17.2 mg Q12H PRN PO Moderate constipation; Start 08/23/17 at 12:15 Bisacodyl (Dulcolax Supp) 10 mg DAILY PRN RECTAL SEVERE CONSITIPATION; Start at 12:15 Lactulose (Lactulose Liq) 30 ml DAILY PRN PO SEVERE CONSITIPATION; Start at 12:15 Atenolol (Tenormin) 25 mg DAILY PO Last administered on 08/24/17at 08:22; Start 08/24/17 at 09:00 Cholecalciferol (Vitamin D3) 1,000 units DAILY PO Last administered on at 08:13; Start 08/24/17 at 09:00 Cyclobenzaprine HCl (Flexeril) 10 mg TID PO Last administered on 08/24/17at 11: 32; Start 08/23/17 at 13:00 Furosemide (Lasix) 40 mg DAILY PO Last administered on 08/24/17at 08:12; Start 08/24/17 at 09:00 Potassium Chloride (KCl) 10 meq DAILY PO Last administered on 08/24/17at 08:13; Start 08/24/17 at 09:00 Morphine Sulfate (Morphine Inj) 2 mg ONCE ONCE IV PUSH Last administered on at 12:21; Start 08/23/17 at 12:15; Stop 08/23/17 at 12:16; Status DC Albuterol/ Ipratropium (Duoneb Neb) 1 ampule Q4HR NEB NEB Last administered on 08/24/17at 11:39; Start 08/23/17 at 16:00 Guaifenesin (Mucinex Er) 600 mg BID PO Last administered on 08/24/17at 08:12; Start 08/23/17 at 21:00 Famotidine (Pepcid Inj) 20 mg Q12H IV PUSH Last administered on 08/24/17at 03:14 ; Start 08/23/17 at 14:30 Sucralfate (Carafate) 1 gm ACHS PO Last administered on 08/24/17at 11:32; Start 08/23/17 at 17:00 Morphine Sulfate (Morphine Inj) 2 mg Q3H PRN IV PUSH PAIN > 4 Last administered on 08/24/17at 03:17; Start 08/23/17 at 21:00; Stop 08/24/17 at 08:00 ; Status DC A/P Assessment and Plan Assessment and Plan 1. Atypical chest pain, reproducible on palpation of the Rib cage, will continue Cardiac enzymes, cardiac monitoring at this time totally asymptomatic, doubt Cardiac pathology, negative two sets of Cardiac enzymes. Morphine as needed for pain. NEGATIVE 2. Cirrhosis chronic pathology with Leg edema continue diuretics. add Spironolactone 25 mg daily. 3. Hepatitis C by history 4. Morbid Obesity strongly recommended diet and exercise 5. Bronchitis/COPD not found acute pathology on CXR, will continue Bronchodilator, Mucolytic and Incentive spirometry 6. Depression Anxiety disorder stable at this time 7. DM II continue sliding scale at this time -NO SURGERY 8. Hypertension controlled will continue Home medicines 9. Chronic pain syndrome stable at this time. DVT prophylaxis with SCDs awaiting disposition by General Surgery following Cardiac enzymes General Surgery evaluation NO SURGICAL INTERVENTION Gastric protection. Code Status Full Code. WILL DC TO HOME TODAY ON PO MEDS DW PATIENT AND RN TOLERATING A DIET DC TO HOME Discharge Planning DC TO HOME TODAY Grzegorz Schmidt DO Aug 24, 2017 12:48
[2017-08-24] MEDS ORDERED: guaiFENesin ER PO (12:55)
[2017-08-24] MEDS ORDERED: SPIR25TA PO (12:55)
[2017-08-24] MEDS ORDERED: AZIT500T2 PO (12:55)
[2017-08-24] MEDS ORDERED: CYCL10TA PO (12:55)
[2017-08-24] MEDS ORDERED: NEBULIZER1 MI1 (12:55)
[2017-08-24] MEDS ORDERED: CARA1TAB6 PO (12:55)
[2017-08-24] MEDS ORDERED: VENTAER INH (12:55)
[2017-08-24] MEDS ORDERED: KLOR10TA PO (12:55)
[2017-08-24] MEDS ORDERED: ATEN25TA PO (12:55)
[2017-08-24] MEDS ORDERED: FURO1TAB60 PO (12:55)
[2017-08-24] MEDS ORDERED: Albuterol-Ipratropium Neb NEB (12:55)
[2017-08-24] MEDS ORDERED: CEFU1TAB20 PO (12:55)
--- NOTE | 2017-08-24 12:59 | HHI.DS ---
Discharge Summary Admission Date Aug 23, 2017 at 11:58 Discharge Date: Aug 24, 2017 Admitting Diagnosis (1) DM (diabetes mellitus) ICD Code: E11.9 - Type 2 diabetes mellitus without complications Diagnosis: Secondary Status: Chronic (2) COPD (chronic obstructive pulmonary disease) ICD Code: J44.9 - Chronic obstructive pulmonary disease, unspecified Diagnosis: Secondary Status: Acute (3) Hepatitis C ICD Code: B19.20 - Unspecified viral hepatitis C without hepatic coma Diagnosis: Secondary Status: Chronic (4) Acute chest wall pain ICD Code: R07.89 - Other chest pain Diagnosis: Principal Status: Acute (5) Atypical chest pain ICD Code: R07.89 - Other chest pain Diagnosis: Principal Status: Acute (6) Chest pain ICD Code: R07.9 - Chest pain, unspecified Diagnosis: Principal Status: Resolved (7) Cirrhosis of liver ICD Code: K74.60 - Unspecified cirrhosis of liver Diagnosis: Secondary Status: Acute Procedures NONE Brief History - From Admission This is a pleasant 57 y/o Female with substernal sharp pain worse with deep breath, The Patient has not had this type of pain before, denies having recent upper respiratory infection.. Patient has a slight cough with frothy sputum production. Patient denies any fever chills sweats. Patient does note mild increased discomfort and shortness of breath with lying flat. as we know she has OA, Asthma Anxiety disorder, Depression, CAD, DM II, Hepatitis C, Esophageal Varices, Herniated Disc, Hypertension, spinal Stenosis, COPD, chronic pain syndrome. As per patient she woke up this morning with chest pain, at 1:30 AM, on Right parasternal area, 10/10 in intensity with Shortness of breath, non radiated as a sharp sensation, reproducible on palpation. at the time of evaluation she has no chest pain no shortness of breath but has productive cough of white to yellow sputum, discussed with ER physician concerned about Gallbladder that was evaluated one year ago by Doctor Raf Aponte one year ago and recommended for no procedure, but the patient has increased LFTs and Cholelithiasis on new CT abdomen and Pelvis, she is been placed NPO and asked for General Surgery consult. will continue to trend her Cardiac enzymes. negative times two. CBC/BMP: 08/24/17 0620 08/24/17 0620 Significant Findings Laboratory Tests Test 08/23/17 04:29 08/23/17 05:00 08/23/17 06:40 08/23/17 17:18 Prothrombin Time 12.8 SEC (9.8-11.6) D-Dimer Quantitative (PE/DVT) 1.16 MG/L FEU (0.00-0.50) White Blood Count 3.6 TH/MM3 (4.0-11.0) Platelet Count 105 TH/MM3 (150-450) Mean Platelet Volume 11.2 FL (7.0-11.0) Monocytes (%) (Auto) 13.5 % (0.0-8.0) Neutrophils # (Auto) 1.6 TH/MM3 (1.8-7.7) Random Glucose 136 MG/DL (74-106) Albumin 2.7 GM/DL (3.4-5.0) 2.7 GM/DL (3.4-5.0) Calcium Level 8.3 MG/DL (8.5-10.1) Alkaline Phosphatase 279 U/L (45-117) 254 U/L (45-117) Aspartate Amino Transf (AST/SGOT) 149 U/L (15-37) 137 U/L (15-37) Alanine Aminotransferase (ALT/SGPT) 134 U/L (10-53) 128 U/L (10-53) Total Bilirubin 2.6 MG/DL (0.2-1.0) 3.1 MG/DL (0.2-1.0) Troponin I LESS THAN 0.02 NG/ML LESS THAN 0.02 NG/ML LESS THAN 0.02 NG/ML Test 08/24/17 00:14 08/24/17 06:20 Troponin I LESS THAN 0.02 NG/ML White Blood Count 3.7 TH/MM3 (4.0-11.0) Platelet Count 88 TH/MM3 (150-450) Mean Platelet Volume 11.2 FL (7.0-11.0) Monocytes (%) (Auto) 16.7 % (0.0-8.0) Neutrophils # (Auto) 1.5 TH/MM3 (1.8-7.7) Platelet Estimate LOW (NORMAL) Platelet Morphology Comment ENLARGED (NORMAL) Random Glucose 147 MG/DL (74-106) Albumin 2.5 GM/DL (3.4-5.0) Calcium Level 8.3 MG/DL (8.5-10.1) Alkaline Phosphatase 244 U/L (45-117) Aspartate Amino Transf (AST/SGOT) 128 U/L (15-37) Alanine Aminotransferase (ALT/SGPT) 116 U/L (10-53) Total Bilirubin 2.7 MG/DL (0.2-1.0) Potassium Level 3.2 MEQ/L (3.5-5.1) Imaging Last Impressions Chest X-Ray 08/23/17 0429 Signed Impressions: Service Date/Time: Wednesday, August 23, 2017 04:50 - CONCLUSION: Mild pulmonary venous congestion. True Ocampo MD Lung Scan-V Nuclear Medicine 08/23/17 0000 Signed Impressions: Service Date/Time: Wednesday, August 23, 2017 09:22 - CONCLUSION: No evidence of pulmonary embolus. Ricike Orozco MD Abdomen/Pelvis CT 08/23/17 0000 Signed Impressions: Service Date/Time: Wednesday, August 23, 2017 08:01 - CONCLUSION: 1. Diffusely nodular contour liver capsule again seen indicating cirrhosis. No gross focal mass identified. 2. Cholelithiasis and nonspecific diffuse gallbladder wall thickening. 3. Evidence of portal venous hypertension with left upper quadrant varices. Mild splenomegaly. 4. Left lower lobe bronchiectasis and slight increase in size of 2 cm left lung base nodule adjacent to the bronchiectasis. Rickie Orozco MD PE at Discharge GENERAL: An cooperative morbidly obese AWAKE ALERT AND ORIENTED X3 TALKATIVE AND COOPERATIVE SKIN: Warm and dry. HEAD: Atraumatic. Normocephalic. EYES: Pupils equal and round. No scleral icterus. No injection or drainage. EOMI ENT: No nasal bleeding or discharge. Mucous membranes pink and moist. TONGUE MIDLINE NECK: Trachea midline. No JVD. SUPPLE CARDIOVASCULAR: Regular rate and rhythm. S1, S2 NO S3 OR S4 RESPIRATORY: No accessory muscle use. Clear to auscultation. Breath sounds equal bilaterally. GASTROINTESTINAL: Abdomen soft, non-tender, nondistended. Hepatic and splenic margins not palpable. OBESE MUSCULOSKELETAL: Extremities without clubbing, cyanosis, or edema. No obvious deformities. NEUROLOGICAL: Awake and alert. No obvious cranial nerve deficits. Motor grossly within normal limits. 4 out of 5 muscle strength in the arms and legs. Normal speech. PSYCHIATRIC: Appropriate mood and affect; insight and judgment normal. Hospital Course This is a pleasant 57 y/o Female with substernal sharp pain worse with deep breath, The Patient has not had this type of pain before, denies having recent upper respiratory infection.. Patient has a slight cough with frothy sputum production. Patient denies any fever chills sweats. Patient does note mild increased discomfort and shortness of breath with lying flat. as we know she has OA, Asthma Anxiety disorder, Depression, CAD, DM II, Hepatitis C, Esophageal Varices, Herniated Disc, Hypertension, spinal Stenosis, COPD, chronic pain syndrome. As per patient she woke up this morning with chest pain, at 1:30 AM, on Right parasternal area, 10/10 in intensity with Shortness of breath, non radiated as a sharp sensation, reproducible on palpation. at the time of evaluation she has no chest pain no shortness of breath but has productive cough of white to yellow sputum, discussed with ER physician concerned about Gallbladder that was evaluated one year ago by Doctor Raf Aponte one year ago and recommended for no procedure, but the patient has increased LFTs and Cholelithiasis on new CT abdomen and Pelvis, she is been placed NPO and asked for General Surgery consult. will continue to trend her Cardiac enzymes. negative times two. 1-14 seen by surgery- no surgery offered still has some cough dw RN AND PT TROPONINS ALL NEGATIVE DC TO HOME TODAY FOLLOW UP WITH PCP Assessment and Plan 1. Atypical chest pain, reproducible on palpation of the Rib cage, will continue Cardiac enzymes, cardiac monitoring at this time totally asymptomatic, doubt Cardiac pathology, negative two sets of Cardiac enzymes. Morphine as needed for pain. NEGATIVE 2. Cirrhosis chronic pathology with Leg edema continue diuretics. add Spironolactone 25 mg daily. 3. Hepatitis C by history 4. Morbid Obesity strongly recommended diet and exercise 5. Bronchitis/COPD not found acute pathology on CXR, will continue Bronchodilator, Mucolytic and Incentive spirometry 6. Depression Anxiety disorder stable at this time 7. DM II continue sliding scale at this time -NO SURGERY 8. Hypertension controlled will continue Home medicines 9. Chronic pain syndrome stable at this time. DVT prophylaxis with SCDs awaiting disposition by General Surgery following Cardiac enzymes General Surgery evaluation NO SURGICAL INTERVENTION Gastric protection. Code Status Full Code. WILL DC TO HOME TODAY ON PO MEDS DW PATIENT AND RN TOLERATING A DIET DC TO HOME Pt Condition on Discharge: Good Discharge Disposition: Discharge Home Discharge Time: > 30 minutes Discharge Instructions DIET: Follow Instructions for: Heart Healthy Diet, Diabetic Diet Activities you can perform: Regular-No Restrictions, Weight Bearing as Asa Follow up Referrals: PCP Follow-up - 2-3 Days with Herbie Rizo DO New Medications: Azithromycin (Azithromycin) 500 Mg Tab 500 MG PO DAILY for Infection, #7 TAB 0 Refills Cefuroxime (Cefuroxime) 500 Mg Tab 500 MG PO BID for Infection for 10 Days, #20 TAB 0 Refills Nebulizer (Nebulizer) 1 Mis Mis EA .ROUTE DIRECTED for Breathing Treatment, #1 0 Refills Spironolactone (Spironolactone) 25 Mg Tab 25 MG PO DAILY for Blood Pressure Management, #30 TAB 0 Refills Sucralfate (Carafate) 1 Gram Tab 1 GM PO ACHS for Heartburn Management, #120 TAB [Albuterol-Ipratropium Neb] () 1 AMPULE NEBU 1 AMPULE NEB Q4HR NEB for Shortness of Breath, #180 AMPULE [guaiFENesin ER] () 600 MG TABCR 600 MG PO BID for Cough, #60 TAB Continued Medications: Albuterol 18 GM Inh (Ventolin Hfa 18 GM Inh) 90 Mcg/Act Aer 2 PUFF INH Q4H PRN for SOB/WHEEZING, #1 INHALER (This prescription has been renewed) Atenolol (Atenolol) 25 Mg Tab 25 MG PO DAILY for Blood Pressure Management, #30 TAB (This prescription has been renewed) Cholecalciferol (Vitamin D-1000) 1,000 Unit Tab 1000 UNITS PO DAILY for Nutritional Supplement, #1 BOTTLE 0 Refills Cyclobenzaprine (Flexeril) 10 Mg Tab 10 MG PO TID for Muscle Spasm, #90 TAB 0 Refills (This prescription has been renewed) Fentanyl Patch 72 HR (Fentanyl Patch 72 HR) 25 Mcg/Hr Patch 25 MCG T-DERMAL Q72H for Pain Management, #10 PATCH 0 Refills Furosemide (Lasix) 40 Mg Tab 40 MG PO DAILY for Blood Pressure Management, #30 TAB 0 Refills (This prescription has been renewed) Potassium Chloride ER (Klor-Con 10) 10 Meq Tab 10 MEQ PO DAILY for Electrolyte Replacement, #30 TAB 0 Refills (This prescription has been renewed) Grzegorz Schmidt DO Aug 24, 2017 12:59
--- NOTE | 2017-08-24 14:05 | PD.CAR.PN ---
CVT Progress Note Subjective/Hospital Course: 08/24/17 Patient stable at this time Shortness of breath has abated chest pain has as well Abdomen is soft no rebound no guarding no masses Right upper quadrant pain is decreased significantly and patient is doing very well Again, I agree with Dr. Valdivia tolerated patient should not have any surgery at this time Objective: Vital Signs Date Time Temp Pulse Resp B/P (MAP) Pulse Ox O2 Delivery O2 Flow Rate FiO2 08/24/17 12:00 97.8 98 20 131/60 (83) 98 08/24/17 12:00 76 08/24/17 09:26 Room Air 08/24/17 08:10 97 21 08/24/17 08:00 109 08/24/17 08:00 98.6 100 20 140/89 (106) 98 08/24/17 04:00 98.4 100 17 131/64 (86) 95 08/24/17 04:00 95 08/24/17 04:00 Room Air 08/24/17 00:00 96 08/24/17 00:00 98.1 99 17 132/78 (96) 96 08/24/17 00:00 Room Air 08/23/17 20:00 97.5 99 17 139/71 (93) 96 08/23/17 20:00 83 08/23/17 19:39 98 21 08/23/17 16:00 97.4 72 20 142/68 (92) 92 08/23/17 16:00 77 Labs: Laboratory Tests Test 08/24/17 06:20 White Blood Count 3.7 TH/MM3 (4.0-11.0) Red Blood Count 4.16 MIL/MM3 (4.00-5.30) Hemoglobin 12.3 GM/DL (11.6-15.3) Hematocrit 37.6 % (35.0-46.0) Mean Corpuscular Volume 90.5 FL (80.0-100.0) Mean Corpuscular Hemoglobin 29.5 PG (27.0-34.0) Mean Corpuscular Hemoglobin Concent 32.6 % (32.0-36.0) Red Cell Distribution Width 14.4 % (11.6-17.2) Platelet Count 88 TH/MM3 (150-450) Mean Platelet Volume 11.2 FL (7.0-11.0) Neutrophils (%) (Auto) 39.9 % (16.0-70.0) Lymphocytes (%) (Auto) 39.3 % (9.0-44.0) Monocytes (%) (Auto) 16.7 % (0.0-8.0) Eosinophils (%) (Auto) 3.2 % (0.0-4.0) Basophils (%) (Auto) 0.9 % (0.0-2.0) Neutrophils # (Auto) 1.5 TH/MM3 (1.8-7.7) Lymphocytes # (Auto) 1.4 TH/MM3 (1.0-4.8) Monocytes # (Auto) 0.6 TH/MM3 (0-0.9) Eosinophils # (Auto) 0.1 TH/MM3 (0-0.4) Basophils # (Auto) 0.0 TH/MM3 (0-0.2) CBC Comment AUTO DIFF Differential Comment AUTO DIFF CONFIRMED Platelet Estimate LOW (NORMAL) Platelet Morphology Comment ENLARGED (NORMAL) Blood Urea Nitrogen 13 MG/DL (7-18) Creatinine 0.64 MG/DL (0.50-1.00) Random Glucose 147 MG/DL (74-106) Total Protein 7.0 GM/DL (6.4-8.2) Albumin 2.5 GM/DL (3.4-5.0) Calcium Level 8.3 MG/DL (8.5-10.1) Alkaline Phosphatase 244 U/L (45-117) Aspartate Amino Transf (AST/SGOT) 128 U/L (15-37) Alanine Aminotransferase (ALT/SGPT) 116 U/L (10-53) Total Bilirubin 2.7 MG/DL (0.2-1.0) Sodium Level 140 MEQ/L (136-145) Potassium Level 3.2 MEQ/L (3.5-5.1) Chloride Level 105 MEQ/L (98-107) Carbon Dioxide Level 26.1 MEQ/L (21.0-32.0) Anion Gap 9 MEQ/L (5-15) Estimat Glomerular Filtration Rate 115 ML/MIN (>89) Lipase 177 U/L (73-393) Result Diagram: 08/24/17 0620 08/24/17 0620 Jimmy Vera MD Aug 24, 2017 14:05
== END 2017-08-24 13:48 | disposition home or self-care (01) ==
LOC: NEPE 02:26 → INTOOBSV 11:58 → NEDA 11:58 → N04A 14:55
PROVIDERS: ADMIT Hospitalist; ATTEND Hospitalist
DX: I50.9 Heart failure, unspecified (principal); I11.0 Hypertensive heart disease with heart failure; I25.10 Atherosclerotic heart disease of native coronary artery without angina pectoris; J44.9 Chronic obstructive pulmonary disease, unspecified; E11.9 Type 2 diabetes mellitus without complications; K74.60 Unspecified cirrhosis of liver; B19.20 Unspecified viral hepatitis C without hepatic coma; K76.6 Portal hypertension; G89.4 Chronic pain syndrome; F41.8 Other specified anxiety disorders; I85.00 Esophageal varices without bleeding; K80.20 Calculus of gallbladder without cholecystitis without obstruction; M48.00 Spinal stenosis, site unspecified; Z79.899 Other long term (current) drug therapy; M19.90 Unspecified osteoarthritis, unspecified site
CPT/HCPCS: 71045; 74176; 78582; 80053; 82550; 82948; 83690; 83735; 83880; 84484; 85025; 85379; 85610; 85652; 85730; 93005; 94150; 94640; 94664; 96374; 96375; 96376; 99285; A9540; A9567; G0378; J1940; J2270